=== PATIENT | male | born 1990 | race Caucasian/White ===

== ENCOUNTER 2017-09-10 09:18 | Day surgery (SDC) | payer MEDICARE, MEDICAID ==
[~2017-09-10 09:18] MED LIST: Bupivacaine 0.25%/EPINEPHrine 1:200,000 10 ML SDV INJECT ONE; Bupivacaine 25%/EPINEPHrine/PF 30 ML ONE; Dexamethasone/Tobramycin 0.1-0.3% Ophth Oint 3.5 GM Tube EYEBOTH ONE; Dexamethasone/Tobramycin 0.1-0.3% Ophth Oint 3.5 GM Tube ONE; Lactated Ringers 1,000 ML IV SCH; ceFAZolin 2 GM in Premix Bag 1 BAG IV ONE
[2017-09-10] MEDS ORDERED: Midazolam 1 MG/ML 2 ML SDV ONE (09:25)
--- NOTE | 2017-09-10 10:29 | PCM.PREANE ---
Preanesthetic Assessment - Anesthesia/Transfusion/Family Hx Anesthesia History: Prior Anesthesia Without Reaction Family History of Anesthesia Reaction: No Transfusion History: No Prior Transfusion(s) Intubation History: Unknown - Review of Systems General: No Symptoms Pulmonary: No Symptoms Cardiovascular: No Symptoms Gastrointestinal: No Symptoms Neurological: No Symptoms Other: Reports: None - Physical Assessment Height: 1.78 m Weight: 107.048 kg ASA Class: 2 Mental Status: Alert & Oriented x3 Airway Class: Mallampati = 2 Dentition: Reports: Normal Dentition Thyro-Mental Finger Breadths: 3 (overgrown mandible) Mouth Opening Finger Breadths: 2 ROM/Head Extension: Limited/Partial Lungs: Clear to Auscultation, Normal Respiratory Effort Cardiovascular: Regular Rate, Regular Rhythm - Allergies Allergies/Adverse Reactions: Allergies Allergy/AdvReac Type Severity Reaction Status Date / Time No Known Allergies Allergy Verified 09/08/17 15:07 - Blood Blood Available: No - Anesthesia Plan Pre-Op Medication Ordered: None - Acknowledgements Anesthesia Type Planned: General Anesthesia Pt an Appropriate Candidate for the Planned Anesthesia: Yes Alternatives and Risks of Anesthesia Discussed w Pt/Guardian: Yes Pt/Guardian Understands and Agrees with Anesthesia Plan: Yes PreAnesthesia Questionnaire HEENT History: Reports: Allergic Rhinitis Other HEENT History: wears glasses Gastrointestinal History: Reports: Chronic Constipation Musculoskeletal History: Reports: Fracture Other Musculoskeletal History: hx of fx left foot Neurological History: Reports: Seizure, Other (See Below) Other Neuro History: hydrocephalus, hx of [employer] shunt as child....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), last one was over 1 year ago Psychiatric History: Reports: Depression, Developmental Delay Other Psychiatric History: self abuse Endocrine/Metabolic History: Reports: Hypothyroidism, Obesity/BMI 30+ - Past Surgical History Head Surgeries/Procedures: Reports: None GI Surgical History: Reports: Colonoscopy Other Surgical History Comment: V_P shunt placement - SUBSTANCE USE Smoking Status *Q: Never Smoker Second Hand Smoke Exposure: No Days Per Week of Alcohol Use: 0 Recreational Drug Use History: No - HOME MEDS Home Medications: Home Meds DULoxetine [Cymbalta] 60 mg PO DAILY 01/07/15 [History] Docusate Sodium [Colace] 100 mg PO DAILY 01/07/15 [History] Fluticasone Propionate [Flonase] 1 - 2 sprays NASBOTH DAILY 01/07/15 [History] Levothyroxine [Synthroid] 88 mcg PO ACBREAKFAST 01/07/15 [History] Loratadine [Claritin] 10 mg PO DAILY 01/07/15 [History] Multivitamin [Multi-Vitamin Daily] 1 tab PO DAILY 01/07/15 [History] risperiDONE [Risperdal] 0.5 mg PO DAILY PRN 01/07/15 [History] Melatonin/Pyridoxine HCl (B6) [Melatonin 3 mg Tablet] 6 mg PO BEDTIME 04/19/15 [ History] lamoTRIgine [Lamictal] 600 mg PO QAM 04/19/15 [History] risperiDONE [Risperdal] 2 mg PO QAM 01/31/16 [History] risperiDONE [Risperdal] 4 mg PO BEDTIME 01/31/16 [History] Mucinex Allergy 180 mg PO Q12H 09/08/17 [History] Multivitamins [Tab-A-Rashard] 1 tab PO DAILY 09/08/17 [History] Polyethylene Glycol 3350 [MiraLAX] 1 pkt PO DAILY 09/08/17 [History] Prazosin [Minpress] 1 mg PO BEDTIME 09/08/17 [History] lamoTRIgine [Lamictal] 400 mg PO QPM 09/08/17 [History] - CURRENT (IN HOUSE) MEDS Current Meds: Current Medications Lactated Ringer's (Ringers, Lactated) 1,000 mls @ 125 mls/hr IV ASDIRECTED HINA Tramadol HCl (Ultram) 50 mg PO Q4H PRN PRN Reason: Pain Discontinued Medications Bupivacaine HCl/Epinephrine Bitart (Marcaine 0.25%/Epinephrine 1:200,000) 10 ml INJECT ONETIME ONE Stop: 09/10/17 09:01 Cefazolin Sodium/Dextrose 2 gm (/ Premix) 50 mls @ 100 mls/hr IV ONETIME ONE Stop: 09/10/17 09:29 Bupivacaine HCl/Epinephrine Bitart (Sensorc Mpf 0.25%-Epi 1:106456) Confirm Administered Dose 30 mls @ as directed .ROUTE .STK-MED ONE Stop: 09/10/17 07:34 Midazolam HCl (Versed 1 Mg/Ml) Confirm Administered Dose 2 mg .ROUTE .STK-MED ONE Stop: 09/10/17 09:26 Tobramycin/Dexamethasone (Tobradex Ophth Oint) 0.1 gm EYEBOTH ONETIME ONE Stop: 09/10/17 09:01 Tobramycin/Dexamethasone (Tobradex Ophth Oint) Confirm Administered Dose 3.5 gm .ROUTE .STK-MED ONE Stop: 09/10/17 07:34
[2017-09-10] MEDS ORDERED: Propofol 200 MG/20 ML SDV ONE ×3 (10:31→12:11)
[2017-09-10] MEDS ORDERED: Lidocaine 2% 5 ML SDV ONE (10:35)
[2017-09-10] MEDS ORDERED: fentaNYL 100 MCG/2 ML SDV ONE (10:37)
[2017-09-10] MEDS ORDERED: fentaNYL 100 MCG/2 ML SDV IVPUSH PRN (12:17)
[2017-09-10] MEDS ORDERED: Neostigmine Methylsulfate 1 MG/ML 5 ML Syringe ONE (12:27)
[2017-09-10] MEDS ORDERED: Ondansetron 4 MG Tab.DIS PO PRN (12:48)
[2017-09-10] MEDS ORDERED: Sodium Chloride 0.9% 2.5 ML Syringe FLUSH PRN (12:49)
[2017-09-10] MEDS ORDERED: Sodium Chloride 0.9% 10 ML Syringe FLUSH PRN (12:49)
--- NOTE | 2017-09-10 12:54 | PCM.OPNOTE ---
- General Post-Op/Procedure Note Date of Surgery/Procedure: 09/10/17 Operative Procedure(s): bilateral levator advacement for blepharoptosis Pre Op Diagnosis: ptosis of bilateral upper lids Post-Op Diagnosis: Same Anesthesia Technique: General ET Tube, Local Primary Surgeon: Dina Bermeo Briar Wood Sorter: Kirstie Seay Complications: None Condition: Good
[2017-09-10] MEDS: Dexamethasone/Tobramycin 0.1-0.3% Ophth Susp 2.5 ML Bottle EYEBOTH SCH ×4 (14:08→22:49)
[2017-09-10] MEDS: Dexamethasone/Tobramycin 0.1-0.3% Ophth Oint 3.5 GM Tube EYEBOTH SCH ×4 (14:29→22:49)
--- NOTE | 2017-09-10 14:34 | PCM48HPAN ---
Post Anesthesia Note - EVALUATION WITHIN 48HRS OF ANESTHETIC Vital Signs in Normal Range: Yes Patient Participated in Evaluation: Yes Respiratory Function Stable: Yes Airway Patent: Yes Cardiovascular Function Stable: Yes Hydration Status Stable: Yes Pain Control Satisfactory: Yes Nausea and Vomiting Control Satisfactory: Yes Mental Status Recovered: Yes
[2017-09-10] MEDS: Ibuprofen 400 MG Tab PO PRN (15:51)
[2017-09-10] MEDS ORDERED: risperiDONE 0.5 MG Tab PO PRN (19:13)
[2017-09-10] MEDS ORDERED: [UNRECOGNIZED DRUG - REMARK] PO SCH (19:15)
[2017-09-10] MEDS: traMADol 50 MG Tab PO PRN (20:18)
--- NOTE | 2017-09-10 20:52 | OR ---
SURGEON: TU BOOKER MD DATE OF PROCEDURE: 09/10/2017 PREOPERATIVE DIAGNOSIS: Ptosis of bilateral upper lids. POSTOPERATIVE DIAGNOSIS: Ptosis of bilateral upper lids. PROCEDURE: Bilateral levator advancement for blepharoptosis. VISITOR SERVICES SPECIALIST: None. INDICATIONS: Mr. Kearns is a 26-year-old gentleman with bilateral upper lid ptosis. 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 Risks and benefits of levator advancement versus frontalis sling were discussed and they would like to proceed with the simplest intervention possible. The patient does have a seizure disorder as well. We discussed options and I do think that levator advancement considering he was not born with poor levator function is a viable option. They said he was able to see much better prior to recent worsening. Risks were including, but not limited to, bleeding, infection, damage to underlying or overlying structures, possible need for future interventions, possible scarring. Informed consent was obtained from his caregiver and written consent was obtained from his guardian. The patient's questions were answered and they were in agreement to proceed. PROCEDURE IN DETAIL: After informed consent was obtained and placed on the chart, the patient was brought to the operating theater and laid in supine position. After adequate general anesthetic was obtained, the area was prepped and draped and a time-out was completed to confirm side and site. Attention was then paid to marking of the upper eyelids at the proposed crease approximately 1 cm up from the eyelid edge and dissection was carried through the skin and subcutaneous tissues using a 15 blade and Bovie electrocautery. The septum was reached and the levator aponeurosis was located superiorly and inferiorly the superior edge of the tarsus was located. Once adequately located, the two were reapproximated using deep 4-0 nylon sutures. The muscle was somewhat wasted on the right but more intact on the left. It was advanced slightly more on the right due to the 2 mm of difference between each eye. Once in place, the corneal protectors were removed and attention was then paid to meticulous hemostasis, reapproximated of the muscle using 4-0 Monocryl stitches and closure of the skin using a deep 5-0 Monocryl stitch and a running 6-0 Prolene for the skin. These were Steri-Stripped in place and the incisions were dressed with TobraDex ointment as there was TobraDex also placed in the eye. The patient tolerated the procedure well. All counts and needles were correct at the end of the case. FOLLOWUP INSTRUCTIONS: The patient was maintained in the hospital overnight for observation given his low seizure threshold and we will continue close observation. We will follow up sooner if any issues or concerns. HEGGTHE / ANIYAHL /[id number] MTDViktoriya
[2017-09-10] MEDS ORDERED: [UNRECOGNIZED DRUG - OTHER] PO SCH (21:00)
[2017-09-10] MEDS ORDERED: MELATONIN PO SCH (21:00)
[2017-09-10] MEDS ORDERED: risperiDONE 1 MG Tab PO SCH (21:00)
[2017-09-10] MEDS ORDERED: PYRIDOXINE HCL PO SCH (21:00)
[2017-09-10] MEDS ORDERED: Prazosin 1 MG Cap PO SCH (21:00)
[2017-09-11] MEDS: traMADol 50 MG Tab PO PRN ×2 (02:28→06:31)
[2017-09-11] MEDS: Dexamethasone/Tobramycin 0.1-0.3% Ophth Oint 3.5 GM Tube EYEBOTH SCH ×4 (02:29→13:40)
[2017-09-11] MEDS: Dexamethasone/Tobramycin 0.1-0.3% Ophth Susp 2.5 ML Bottle EYEBOTH SCH ×4 (02:29→13:39)
[2017-09-11] MEDS ORDERED: Levothyroxine 88 MCG Tab PO SCH (07:30)
[2017-09-11] MEDS ORDERED: Multivitamin Tab PO SCH ×2 (09:00)
[2017-09-11] MEDS ORDERED: lamoTRIgine 100 MG Tab PO SCH ×2 (09:00→18:00)
[2017-09-11] MEDS ORDERED: Multivitamin Tab**OWN MED PO SCH (09:00)
[2017-09-11] MEDS ORDERED: DULoxetine 60 MG Cap PO SCH (09:00)
[2017-09-11] MEDS ORDERED: Polyethylene Glycol 3350 Powder 17 GM Packet PO SCH (09:00)
[2017-09-11] MEDS ORDERED: risperiDONE 1 MG Tab PO SCH (09:00)
[2017-09-11] MEDS ORDERED: Loratadine 10 MG Tab PO SCH (09:00)
[2017-09-11] MEDS ORDERED: Fluticasone Propionate Nasal Spray 16 GM Bottle NASBOTH SCH (09:00)
[2017-09-11] MEDS ORDERED: Docusate Sodium 100 MG Cap PO SCH (09:00)
[2017-09-11] MEDS: Ibuprofen 400 MG Tab PO PRN (09:29)
[2017-09-11 12:16] VITALS: BP 119/64
--- NOTE | 2017-09-11 12:50 | PCM.PN ---
- General Info Date of Service: 09/11/17 Subjective Update: doing very well and no issues overnight. Taking home meds. No nausea and eyes feeling well. MUCH more open than before despite swelling. Excellent progress. Functional Status: Reports: Pain Controlled, Tolerating Diet, Ambulating - Review of Systems General: Reports: No Symptoms HEENT: Reports: No Symptoms, Eye Pain (initially but much improved) Pulmonary: Reports: No Symptoms Neurological: Reports: No Symptoms. Denies: Dizziness, Headache, Seizure Psychiatric: Denies: No Symptoms - Patient Data Vitals - Most Recent: Last Vital Signs Temp 96.9 F 09/11/17 12:00 Pulse 75 09/11/17 12:00 Resp 20 09/11/17 12:00 BP 119/64 09/11/17 12:00 Pulse Ox 92 L 09/11/17 12:00 Weight - Most Recent: 236 lb I&O - Last 24 Hours: Intake & Output 09/10/17 09/11/17 09/11/17 23:59 07:59 15:59 Intake Total 1399 3050 Output Total 1280 Balance 1399 1770 Med Orders - Current: Current Medications Docusate Sodium (Colace) 100 mg PO DAILY [facility] Last Admin: 09/11/17 08:22 Dose: 100 mg Duloxetine HCl (Cymbalta) 60 mg PO DAILY [facility] Last Admin: 09/11/17 08:22 Dose: 60 mg Fluticasone Propionate (Flonase) 0 gm NASBOTH DAILY [facility] Last Admin: 09/11/17 08:23 Dose: 2 spray Lactated Ringer's (Ringers, Lactated) 1,000 mls @ 125 mls/hr IV ASDIRECTED [facility] Last Admin: 09/10/17 10:36 Dose: 125 mls/hr Ibuprofen (Motrin) 400 mg PO Q4H PRN PRN Reason: Pain Last Admin: 09/11/17 09:29 Dose: 400 mg Lamotrigine (Lamotrigine) 600 mg PO QAM [facility] Last Admin: 09/11/17 08:20 Dose: 600 mg Lamotrigine (Lamotrigine) 400 mg PO QPM [facility] Levothyroxine Sodium (Synthroid) 88 mcg PO ACBREAKFAST [facility] Last Admin: 09/11/17 06:31 Dose: 88 mcg Loratadine (Claritin) 10 mg PO DAILY [facility] Last Admin: 09/11/17 08:21 Dose: 10 mg Multivitamins/Minerals/Vitamin C (Tab-A-Rashard) 1 tab PO DAILY [facility] Last Admin: 09/11/17 08:22 Dose: 1 tab Non-Formulary Medication (Melatonin/Pyridoxine Hcl (B6) [Melatonin 3 Mg Tablet] ) 6 mg PO BEDTIME [facility] Last Admin: 09/10/17 22:46 Dose: 6 mg Ondansetron HCl (Zofran Odt) 4 mg PO Q4H PRN PRN Reason: Nausea/Vomiting Polyethylene Glycol (Miralax) 17 gm PO DAILY [facility] Last Admin: 09/11/17 08:22 Dose: 17 gm Prazosin HCl (Minpress) 1 mg PO BEDTIME [facility] Last Admin: 09/10/17 22:44 Dose: 1 mg Risperidone (Risperidal) 0.5 mg PO DAILY PRN PRN Reason: Seizures Risperidone (Risperidal) 2 mg PO QAM [facility] Last Admin: 09/11/17 08:21 Dose: 2 mg Risperidone (Risperidal) 4 mg PO BEDTIME [facility] Last Admin: 09/10/17 22:44 Dose: 4 mg Sodium Chloride (Saline Flush) 10 ml FLUSH ASDIRECTED PRN PRN Reason: Keep Vein Open Sodium Chloride (Saline Flush) 2.5 ml FLUSH ASDIRECTED PRN PRN Reason: Keep Vein Open Tobramycin/Dexamethasone (Tobradex Ophth Oint) 0.1 gm EYEBOTH Q4H [facility] Last Admin: 09/11/17 09:33 Dose: 1 applic Tobramycin/Dexamethasone (Tobradex Ophth Susp) 0.5 ml EYEBOTH Q4H [facility] Last Admin: 09/11/17 09:34 Dose: 2 drop Tramadol HCl (Ultram) 50 mg PO Q4H PRN PRN Reason: Pain Last Admin: 09/11/17 06:31 Dose: 50 mg Discontinued Medications Bupivacaine HCl/Epinephrine Bitart (Marcaine 0.25%/Epinephrine 1:200,000) 10 ml INJECT ONETIME ONE Stop: 09/10/17 09:01 Last Admin: 09/10/17 16:43 Dose: Not Given Fentanyl (Sublimaze) Confirm Administered Dose 100 mcg .ROUTE .STK-MED ONE Stop: 09/10/17 10:38 Fentanyl (Sublimaze) 50 mcg IVPUSH Q5M PRN PRN Reason: Pain (severe 7-10) Stop: 09/11/17 12:17 Glycopyrrolate () Confirm Administered Dose 1 mg .ROUTE .STK-MED ONE Stop: 09/10/17 12:28 Cefazolin Sodium/Dextrose 2 gm (/ Premix) 50 mls @ 100 mls/hr IV ONETIME ONE Stop: 09/10/17 09:29 Last Admin: 09/10/17 16:43 Dose: Not Given Bupivacaine HCl/Epinephrine Bitart (Sensorc Mpf 0.25%-Epi 1:808726) Confirm Administered Dose 30 mls @ as directed .ROUTE .STK-MED ONE Stop: 09/10/17 07:34 Lidocaine (Xylocaine-Mpf 2%) Confirm Administered Dose 5 ml .ROUTE .STK-MED ONE Stop: 09/10/17 10:36 Midazolam HCl (Versed 1 Mg/Ml) Confirm Administered Dose 2 mg .ROUTE .STK-MED ONE Stop: 09/10/17 09:26 Multivitamins/Minerals/Vitamin C (Tab-A-Rashard) 1 tab PO DAILY [facility] Multivitamins/Minerals/Vitamin C (Tab-A-Rashard) 1 tab PO DAILY [facility] Neostigmine Methylsulfate (Neostigmine) Confirm Administered Dose 5 mg .ROUTE .STK-MED ONE Stop: 09/10/17 12:28 Non-Formulary Medication (Mucinex Allergy) 180 mg PO Q12H [facility] Last Admin: 09/11/17 07:16 Dose: Not Given Propofol (Diprivan 20 Ml) Confirm Administered Dose 200 mg .ROUTE .STK-MED ONE Stop: 09/10/17 10:32 Propofol (Diprivan 20 Ml) Confirm Administered Dose 200 mg .ROUTE .STK-MED ONE Stop: 09/10/17 10:35 Propofol (Diprivan 20 Ml) Confirm Administered Dose 200 mg .ROUTE .STK-MED ONE Stop: 09/10/17 12:12 Tobramycin/Dexamethasone (Tobradex Ophth Oint) 0.1 gm EYEBOTH ONETIME ONE Stop: 09/10/17 09:01 Last Admin: 09/10/17 16:44 Dose: Not Given Tobramycin/Dexamethasone (Tobradex Ophth Oint) Confirm Administered Dose 3.5 gm .ROUTE .STK-MED ONE Stop: 09/10/17 07:34 Tobramycin/Dexamethasone (Tobradex Ophth Oint) 0.1 gm EYEBOTH Q4H [facility] Last Admin: 09/10/17 17:16 Dose: Not Given Tobramycin/Dexamethasone (Tobradex Ophth Susp) 0.5 ml EYEBOTH Q4H [facility] Last Admin: 09/10/17 17:16 Dose: Not Given - Exam General: Alert, Oriented, Cooperative, No Acute Distress HEENT: Pupils Equal, Pupils Reactive Lungs: Normal Respiratory Effort Extremities: Normal Inspection Skin: Warm, Dry Wound/Incisions: Healing Well, No Drainage, Other (wounds healing well without signs of infection. Minor swelling as expected. Bruising as expected. Excellent for POD 1) Neurological: No New Focal Deficit Psy/Mental Status: Alert, Normal Affect, Normal Mood - Problem List & Annotations (1) Ptosis of both eyelids SNOMED Code(s): 58563106 Code(s): H02.403 - UNSPECIFIED PTOSIS OF BILATERAL EYELIDS Status: Chronic Priority: Medium Current Visit: Yes - Problem List Review Problem List Initiated/Reviewed/Updated: Yes - My Orders Last 24 Hours: My Active Orders 09/10/17 12:00 Patient Status [ADT] Routine 09/10/17 12:48 Ibuprofen [Motrin] 400 mg PO Q4H PRN Ondansetron [Zofran ODT] 4 mg PO Q4H PRN 09/10/17 12:49 Sodium Chloride 0.9% [Saline Flush] 10 ml FLUSH ASDIRECTED PRN Sodium Chloride 0.9% [Saline Flush] 2.5 ml FLUSH ASDIRECTED PRN 09/10/17 16:00 Saline Lock Insert [OM.PC] Routine 09/10/17 18:00 Dexamethasone/Tobramycin [Tobradex Ophth Oint] 0.1 gm EYEBOTH Q4H Dexamethasone/Tobramycin [Tobradex Ophth Susp] 0.5 ml EYEBOTH Q4H 09/10/17 19:13 risperiDONE [RisperiDAL] 0.5 mg PO DAILY PRN 09/10/17 21:00 Melatonin/Pyridoxine HCl (B6) [Melatonin 3 mg Tablet] 6 mg PO BEDTIME Prazosin [Minpress] 1 mg PO BEDTIME risperiDONE [RisperiDAL] 4 mg PO BEDTIME 09/10/17 Dinner Regular Diet [DIET] 09/11/17 07:30 Levothyroxine [Synthroid] 88 mcg PO ACBREAKFAST 09/11/17 09:00 DULoxetine [Cymbalta] 60 mg PO DAILY Docusate Sodium [Colace] 100 mg PO DAILY Fluticasone Propionate [Flonase] 0 gm NASBOTH DAILY Loratadine [Claritin] 10 mg PO DAILY Multivitamins [Tab-A-Rashard] 1 tab PO DAILY Polyethylene Glycol 3350 [MiraLAX] 17 gm PO DAILY lamoTRIgine 600 mg PO QAM risperiDONE [RisperiDAL] 2 mg PO QAM 09/11/17 18:00 lamoTRIgine 400 mg PO QPM - Plan Plan:: Plan home today. Follow up next week (Sep [address] Bermeo at 8:15am), call sooner with any issues or concerns. ULtram called to [facility] for pain if needed. Otherwise OTC medications OK. No heavy lifting and rest and relax today. OK to shower and apply ointment to incision twice daily and drops to eyes twice daily. OK to use drops up to 4x/day if the eyes are getting dry. OK to use ointment in the eye at night if eyes are very dry (be careful though as the ointment with make your vision a little blurry).
== END 2017-09-11 13:55 | disposition home or self-care (01) ==
LOC: MW.SDS 09:18 → MW.MS 13:44 → MW.SDS 09-11 13:55
PROVIDERS: ATTEND Plastic Surgery
DX: H02.403 Unspecified ptosis of bilateral eyelids (principal); J30.9 Allergic rhinitis, unspecified; K59.09 Other constipation; G40.909 Epilepsy, unspecified, not intractable, without status epilepticus; F32.9 Major depressive disorder, single episode, unspecified; E03.9 Hypothyroidism, unspecified; E66.9 Obesity, unspecified; Z68.30 Body mass index [BMI] 30.0-30.9, adult; Z98.890 Other specified postprocedural states; Z79.899 Other long term (current) drug therapy; Z79.51 Long term (current) use of inhaled steroids
CPT/HCPCS: 67904; A9270; J2250; J3010; J7120; 00103; J2704

== ENCOUNTER 2018-02-25 12:43 | Emergency (ER) | payer MEDICARE, MEDICAID ==
--- NOTE | 2018-02-25 12:53 | EDM.PDOC ---
ED HPI GENERAL MEDICAL PROBLEM - General Stated Complaint: AMB Time Seen by Provider: 02/25/18 12:52 Source of Information: Reports: Patient, EMS, Old Records History Limitations: Reports: No Limitations - History of Present Illness INITIAL COMMENTS - FREE TEXT/NARRATIVE: HISTORY AND PHYSICAL: []27-year-old male brought by EMS with a seizure/ no postictal activity. History of Present Illness: []Patient does have partial complex seizure history. Generally with this he just goes limp and is not have tonic-clonic activity. he is on medication( see list of medications) for this Patient states that sometimes this happens, he usually has an aura. He was able to sit or shortly before this occurred He denies any head injury No recent illness No cough cold fever sore throat or flu symptoms Patient is mentally challenged He was at work when this occurred Review of Systems: As per history of present illness and below otherwise all systems reviewed and negative. Past medical history: As per history of present illness and as reviewed below otherwise noncontributory. Surgical history: As per history of present illness and as reviewed below otherwise noncontributory. Social history: No reported history of drug or alcohol abuse. Family history: As per history of present illness and as reviewed below otherwise noncontributory. Physical exam: On arrival patient is alert and oriented [place] Coma Scale would be 12. Slightly drowsy. Shortness of breath no injuries noted HEENT: Atraumatic, normocehpalic, pupils reactive, negative for conjunctival pallor or scleral icterus, mucous membranes moist, throat clear, neck supple, nontender, trachea midline. Lungs: Clear to auscultation, breath sounds equal bilaterally, chest non tender. Heart: S1S2, regular, negative for clicks, rubs, or JVD. Abdomen: Soft, nondistended, nontender. Negative for masses or hepatossplenmegaly. Negative for costovertebral tenderness. Pelvis: Stable nontender. Genitourinary: Deferred. Rectal: Deferred Extremities: Atraumatic, negative for cords or calf pain. Neurovascular unremarkable. Neuro: Awake, alert, oriented. Cranial nerves II through XII unremarkable. Cerebellum unremarkable. Motor and sensory unremarkable throughout. Exam nonfocal. Diagnostics: []CBC prolactin Therapeutics: [] Impression: []Seizure activity Plan: []Discharged home Recommend that you follow-up with Dr. Barr your primary care provider to adjust her medications Definitive disposition and diagnosis as appropriate pending reevaluation and review of above. Onset: Today, Sudden - Related Data Allergies Allergy/AdvReac Type Severity Reaction Status Date / Time No Known Allergies Allergy Verified 02/25/18 13:19 Home Meds: Home Meds DULoxetine [Cymbalta] 60 mg PO DAILY 01/07/15 [History] Docusate Sodium [Colace] 100 mg PO DAILY 01/07/15 [History] Fluticasone Propionate [Flonase] 1 - 2 sprays NASBOTH DAILY 01/07/15 [History] Levothyroxine [Synthroid] 88 mcg PO ACBREAKFAST 01/07/15 [History] Loratadine [Claritin] 10 mg PO DAILY 01/07/15 [History] Multivitamin [Multi-Vitamin Daily] 1 tab PO DAILY 01/07/15 [History] risperiDONE [Risperdal] 0.5 mg PO DAILY PRN 01/07/15 [History] Melatonin/Pyridoxine HCl (B6) [Melatonin 3 mg Tablet] 6 mg PO BEDTIME 04/19/15 [ History] lamoTRIgine [Lamictal] 600 mg PO QAM 04/19/15 [History] risperiDONE [Risperdal] 2 mg PO QAM 01/31/16 [History] risperiDONE [Risperdal] 4 mg PO BEDTIME 01/31/16 [History] Mucinex Allergy 180 mg PO Q12H 09/08/17 [History] Multivitamins [Tab-A-Rashard] 1 tab PO DAILY 09/08/17 [History] Polyethylene Glycol 3350 [MiraLAX] 1 pkt PO DAILY 09/08/17 [History] Prazosin [Minpress] 1 mg PO BEDTIME 09/08/17 [History] lamoTRIgine [Lamictal] 400 mg PO QPM 09/08/17 [History] Dexamethasone/Tobramycin [Tobradex Ophth Oint] 0.1 gm EYEBOTH Q4H tube [Rx] Dexamethasone/Tobramycin [Tobradex Ophth Susp] 0.5 ml EYEBOTH Q4H bottle [Rx] traMADol [Ultram] 50 mg PO Q4H PRN #40 tablet 09/11/17 [Rx] Past Medical History HEENT History: Reports: Allergic Rhinitis Other HEENT History: left eye lid is saggy since , causing a small amount of vision loss Gastrointestinal History: Reports: Chronic Constipation Musculoskeletal History: Reports: Fracture Other Musculoskeletal History: hx of fx left foot Neurological History: Reports: Seizure Other Neuro History: hydrocephalus, hx of [employer] shunt as child....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 ED EXAM, GENERAL - Physical Exam Exam: See Below (CT dictation) Course - Vital Signs Last Recorded V/S: Last Vital Signs Temp 36.6 C 02/25/18 13:00 Pulse 97 02/25/18 13:00 Resp 20 02/25/18 13:00 BP 120/78 02/25/18 13:00 Pulse Ox 93 L 02/25/18 13:00 - Orders/Labs/Meds Orders: Active Orders 24 hr Category Date Time Status EKG Documentation Completion [RC] STAT Care 02/25/18 12:58 Active COMPREHENSIVE METABOLIC PN,CMP [CHEM] Stat Lab 02/25/18 13:02 Received PROLACTIN [CHEM] Stat Lab 02/25/18 13:02 Received Labs: Laboratory Tests 02/25/18 Range/Units 13:02 WBC 7.45 (4.0-11.0) K/uL RBC 5.27 (4.50-5.90) M/uL Hgb 16.2 (13.0-17.0) g/dL Hct 45.2 (38.0-50.0) % MCV 85.8 (80.0-98.0) fL MCH 30.7 (27.0-32.0) pg MCHC 35.8 (31.0-37.0) g/dL RDW Std Deviation 42.8 (28.0-62.0) fl RDW Coeff of [place] 14 (11.0-15.0) % Plt Count 139 L (150-400) K/uL MPV 8.90 (7.40-12.00) fL Neut % (Auto) 63.7 (48.0-80.0) % Lymph % (Auto) 27.9 (16.0-40.0) % [place] % (Auto) 6.4 (0.0-15.0) % Eos % (Auto) 2.0 (0.0-7.0) % Baso % (Auto) 0.0 (0.0-1.5) % Neut # (Auto) 4.7 (1.4-5.7) K/uL Lymph # (Auto) 2.1 (0.6-2.4) K/uL [place] # (Auto) 0.5 (0.0-0.8) K/uL Eos # (Auto) 0.2 (0.0-0.7) K/uL Baso # (Auto) 0.0 (0.0-0.1) K/uL Departure - Departure Time of Disposition: 13:48 Disposition: Home, Self-Care 01 Condition: Good Clinical Impression: Complex partial epileptic seizure Qualifiers: Epilepsy type: partial symptomatic Intractability: not intractable Status epilepticus: without status epilepticus Qualified Code(s): G40.209 - Localization-related (focal) (partial) symptomatic epilepsy and epileptic syndromes with complex partial seizures, not intractable, without status epilepticus - Discharge Information Instructions: Epilepsy, [id number] Additional Instructions: The following information is given to patients seen in the emergency department who are being discharged to home. This information is to outline your options for follow-up care. We provide all patients seen in our emergency department with a follow-up referral. The need for follow-up, as well as the timing and circumstances, are variable depending upon the specifics of your emergency department visit. If you don't have a primary care physician on staff, we will provide you with a referral. We always advise you to contact your personal physician following an emergency department visit to inform them of the circumstance of the visit and for follow-up with them and/or the need for any referrals to a consulting specialist. The emergency department will also refer you to a specialist when appropriate. This referral assures that you have the opportunity for followup care with a specialist. All of these measure are taken in an effort to provide you with optimal care, which includes your followup. Under all circumstances we always encourage you to contact your private physician who remains a resource for coordinating your care. When calling for followup care, please make the office aware that this follow-up is from your recent emergency room visit. If for any reason you are refused follow-up, please contact the [facility] emergency department at and asked to speak to the emergency department charge nurse. You had a partial complex seizure which is not unusual for you No injuries were noted on examination Follow-up with Dr. barr your PCP for consideration of medication adjustment The emergency department as necessary - My Orders Last 24 Hours: My Active Orders 02/25/18 12:58 EKG Documentation Completion [RC] STAT 02/25/18 13:02 COMPREHENSIVE METABOLIC PN,CMP [CHEM] Stat PROLACTIN [CHEM] Stat - Assessment/Plan Last 24 Hours: My Active Orders 02/25/18 12:58 EKG Documentation Completion [RC] STAT 02/25/18 13:02 COMPREHENSIVE METABOLIC PN,CMP [CHEM] Stat PROLACTIN [CHEM] Stat
[2018-02-25 13:48] LABS: CHLORIDE,CL 106 mmol/L (98-107); SODIUM,NA 143 mmol/L (136-148)
[2018-02-25 14:15] VITALS: BP 115/67
== END 2018-02-25 14:13 | disposition home or self-care (01) ==
LOC: MW.ED 12:43
DX: G40.209 Localization-related (focal) (partial) symptomatic epilepsy and epileptic syndromes with complex partial seizures, not intractable, without status epilepticus (principal); E03.9 Hypothyroidism, unspecified; Z79.899 Other long term (current) drug therapy
CPT/HCPCS: 36415; 80053; 84146; 85025; 93005; 99283; 99284-25

== ENCOUNTER 2019-06-22 18:34 | Emergency (ER) | payer MEDICARE, MEDICAID ==
[2019-06-22 19:35] VITALS: BP 131/81; PULSE 65
--- NOTE | 2019-06-22 20:41 | EDM.PDOCBH ---
ED HPI GENERAL MEDICAL PROBLEM - General Chief Complaint: Behavioral/Psych Stated Complaint: MENTAL HEALTH Time Seen by Provider: 06/22/19 20:38 Source of Information: Reports: Patient History Limitations: Reports: No Limitations - History of Present Illness INITIAL COMMENTS - FREE TEXT/NARRATIVE: HISTORY AND PHYSICAL: History of present illness: Patient is a 28-year-old male presents to the ED with complaint of suicidal ideation. Patient is a resident of [facility] and told staff today that he wants to kill himself with a knife from the kitchen. Patient states he has been having these thoughts since yesterday. He denies any specific trigger. He has a history of depression and suicidal ideation and does see a counselor once a week. He has been inpatient at [facility] last year for suicidality. Review of systems: As per history of present illness and below otherwise all systems reviewed and negative. Past medical history: As per history of present illness and as reviewed below otherwise noncontributory. Surgical history: As per history of present illness and as reviewed below otherwise noncontributory. Social history: No reported history of drug or alcohol abuse. Family history: As per history of present illness and as reviewed below otherwise noncontributory. Physical exam: General: Patient sitting comfortably in no acute distress and nontoxic appearing HEENT: Atraumatic, normocephalic, pupils reactive, negative for conjunctival pallor or scleral icterus, mucous membranes moist, throat clear, neck supple, nontender, trachea midline. No meningeal signs. Lungs: Clear to auscultation, breath sounds equal bilaterally, chest nontender. Heart: S1S2, regular, negative for clicks, rubs, or overt murmur. Abdomen: Soft, nondistended, nontender. Negative for masses or hepatosplenomegaly. Negative for costovertebral tenderness. No rigidity, rebound , guarding. Pelvis: Stable nontender. Genitourinary: Deferred. Rectal: Deferred. Extremities: Atraumatic, negative for cords or calf pain. Neurovascular unremarkable. Neuro: Awake, alert, oriented. Cranial nerves II through XII unremarkable. Cerebellum unremarkable. Motor and sensory unremarkable throughout. Exam nonfocal. Notes: patient placed on hold Diagnostics: Mental health work up Therapeutics: [] Prescriptions: Impression: Suicidal ideation with plan Plan: Patient accepted for transfer to [facility] by Dr. Beauchamp, psych. Definitive disposition and diagnosis as appropriate pending reevaluation and review of above. - Related Data Allergies Allergy/AdvReac Type Severity Reaction Status Date / Time No Known Allergies Allergy Verified 06/22/19 19:40 Home Meds: Home Meds DULoxetine [Cymbalta] 60 mg PO DAILY 01/07/15 [History] Docusate Sodium [Colace] 100 mg PO DAILY 01/07/15 [History] Fluticasone Propionate [Flonase] 1 - 2 sprays NASBOTH DAILY 01/07/15 [History] Levothyroxine [Synthroid] 88 mcg PO ACBREAKFAST 01/07/15 [History] Loratadine [Claritin] 10 mg PO DAILY 01/07/15 [History] risperiDONE [Risperdal] 0.5 mg PO PRN 01/07/15 [History] Melatonin/Pyridoxine HCl (B6) [Melatonin 3 mg Tablet] 6 mg PO BEDTIME 04/19/15 [ History] lamoTRIgine [Lamictal] 600 mg PO QAM 04/19/15 [History] risperiDONE [Risperdal] 2 mg PO QAM 01/31/16 [History] risperiDONE [Risperdal] 4 mg PO BEDTIME 01/31/16 [History] Multivitamins [Tab-A-Rashard] 1 tab PO DAILY 09/08/17 [History] Prazosin [Minpress] 1 mg PO BEDTIME 09/08/17 [History] lamoTRIgine [Lamictal] 400 mg PO QPM 09/08/17 [History] Oxymetazoline HCl [Afrin] 1 spray NASBOTH . 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), last one was over 1 year ago Psychiatric History: Reports: Suicidal Ideation, Other (See Below) Other Psychiatric History: self abuse Endocrine/Metabolic History: Reports: Hypothyroidism, Obesity/BMI 30+ - Infectious Disease History Infectious Disease History: Reports: None - Past Surgical History Head Surgeries/Procedures: Reports: None GI Surgical History: Reports: Colonoscopy Social & Family History - Family History Family Medical History: Noncontributory - Tobacco Use Smoking Status *Q: Never Smoker Second Hand Smoke Exposure: No - Caffeine Use Caffeine Use: Reports: None - Recreational Drug Use Recreational Drug Use: No ED ROS GENERAL - Review of Systems Review Of Systems: ROS reveals no pertinent complaints other than HPI. ED EXAM, BEHAVIORAL HEALTH - Physical Exam Exam: See Below (see dictation) COURSE, BEHAVIORAL HEALTH COMP - Course Vital Signs: Last Vital Signs Temp 97.6 F 06/22/19 19:34 Pulse 65 06/22/19 19:34 Resp 20 06/22/19 19:34 BP 131/81 06/22/19 19:34 Pulse Ox 98 06/22/19 19:34 Orders, Labs, Meds: Active Orders 24 hr Category Date Time Status EKG Documentation Completion [RC] STAT Care 06/22/19 20:14 Ordered ACETAMINOPHEN [CHEM] Stat Lab 06/22/19 20:14 Ordered COMPREHENSIVE METABOLIC PN,CMP [CHEM] Stat Lab 06/22/19 20:14 Ordered ETHANOL BLOOD MEDICAL [CHEM] Stat Lab 06/22/19 20:14 Ordered MAGNESIUM [CHEM] Stat Lab 06/22/19 20:14 Ordered SALICYLATE [CHEM] Stat Lab 06/22/19 20:14 Ordered TSH [CHEM] Stat Lab 06/22/19 20:14 Ordered Laboratory Tests 06/22/19 06/22/19 06/22/19 Range/Units 20:14 20:14 20:28 WBC 7.71 (4.0-11.0) K/uL RBC 5.29 (4.50-5.90) M/uL Hgb 16.2 (13.0-17.0) g/dL Hct 47.0 (38.0-50.0) % MCV 88.8 (80.0-98.0) fL MCH 30.6 (27.0-32.0) pg MCHC 34.5 (31.0-37.0) g/dL RDW Std Deviation 45.6 (28.0-62.0) fl RDW Coeff of [place]ia 14 (11.0-15.0) % Plt Count 150 (150-400) K/uL MPV 8.80 (7.40-12.00) fL Neut % (Auto) 58.5 (48.0-80.0) % Lymph % (Auto) 31.4 (16.0-40.0) % [place] % (Auto) 8.0 (0.0-15.0) % Eos % (Auto) 2.1 (0.0-7.0) % Baso % (Auto) 0.0 (0.0-1.5) % Neut # (Auto) 4.5 (1.4-5.7) K/uL Lymph # (Auto) 2.4 (0.6-2.4) K/uL [place] # (Auto) 0.6 (0.0-0.8) K/uL Eos # (Auto) 0.2 (0.0-0.7) K/uL Baso # (Auto) 0.0 (0.0-0.1) K/uL Nucleated RBC % 0.0 /100WBC Nucleated RBCs # 0 K/uL Urine Color YELLOW Urine Appearance CLEAR Urine pH 6.5 (5.0-8.0) Ur Specific [place] 1.025 (1.001-1.035) Urine Protein NEGATIVE (NEGATIVE) mg/dL Urine Glucose (UA) NEGATIVE (NEGATIVE) mg/dL Urine Ketones NEGATIVE (NEGATIVE) mg/dL Urine Occult Blood NEGATIVE (NEGATIVE) Urine Nitrite NEGATIVE (NEGATIVE) Urine Bilirubin NEGATIVE (NEGATIVE) Urine Urobilinogen 0.2 (<2.0) EU/dL Ur Leukocyte Esterase NEGATIVE (NEGATIVE) Urine RBC NONE SEEN (0-2/HPF) Urine WBC 0-1 (0-5/HPF) Ur Epithelial Cells RARE (NONE-FEW) Urine Bacteria OCCASIONAL (NEGATIVE) Urine Opiates Screen NEGATIVE (NEGATIVE) Ur Oxycodone Screen NEGATIVE (NEGATIVE) Urine Methadone Screen NEGATIVE (NEGATIVE) Ur Barbiturates Screen NEGATIVE (NEGATIVE) Ur Phencyclidine Scrn NEGATIVE (NEGATIVE) Ur Amphetamine Screen NEGATIVE (NEGATIVE) U Methamphetamines Scrn NEGATIVE (NEGATIVE) U Benzodiazepines Scrn NEGATIVE (NEGATIVE) U Cocaine Metab Screen NEGATIVE (NEGATIVE) U Marijuana (THC) Screen NEGATIVE (NEGATIVE) Departure - Departure Time of Disposition: 20:46 Disposition: DC/Tfer to Psych Hosp/Unit 65 Condition: Good Clinical Impression: Suicidal ideation - Discharge Information Referrals: PCP,Unknown [Primary Care Provider] - Forms: ED Department Discharge - My Orders Last 24 Hours: My Active Orders 06/22/19 20:14 EKG Documentation Completion [RC] STAT ACETAMINOPHEN [CHEM] Stat COMPREHENSIVE METABOLIC PN,CMP [CHEM] Stat ETHANOL BLOOD MEDICAL [CHEM] Stat MAGNESIUM [CHEM] Stat SALICYLATE [CHEM] Stat TSH [CHEM] Stat - Assessment/Plan Last 24 Hours: My Active Orders 06/22/19 20:14 EKG Documentation Completion [RC] STAT ACETAMINOPHEN [CHEM] Stat COMPREHENSIVE METABOLIC PN,CMP [CHEM] Stat ETHANOL BLOOD MEDICAL [CHEM] Stat MAGNESIUM [CHEM] Stat SALICYLATE [CHEM] Stat TSH [CHEM] Stat
[2019-06-22 21:02] LABS: BLOOD UREA NITROGEN,BUN 15 mg/dL (7.0-18.0); CARBON DIOXIDE,CO2 29.6 mmol/L (21.0-32.0); CHLORIDE,CL 104 mmol/L (98-107); GLUCOSE RANDOM 91 mg/dL (74-106); POTASSIUM,K 3.8 mmol/L (3.5-5.1); SODIUM,NA 142 mmol/L (136-148)
[2019-06-22 21:20] LABS: ACETAMINOPHEN <2.0 ug/mL
== END 2019-06-22 22:53 ==
LOC: MW.ED 18:34
DX: R45.851 Suicidal ideations (principal); F32.9 Major depressive disorder, single episode, unspecified; E03.9 Hypothyroidism, unspecified; G40.409 Other generalized epilepsy and epileptic syndromes, not intractable, without status epilepticus; E66.9 Obesity, unspecified; Z68.35 Body mass index [BMI] 35.0-35.9, adult; Z79.890 Hormone replacement therapy; Z79.899 Other long term (current) drug therapy
CPT/HCPCS: 36415; 80053; 80305; 81001; 83735; 84443; 85025; 93005; 99285; G0480; 99282

== ENCOUNTER 2019-07-20 13:35 | Emergency (ER) | payer MEDICARE, MEDICAID ==
[2019-07-20 13:46] VITALS: BP 166/76; PULSE 95
--- NOTE | 2019-07-20 13:53 | EDM.PDOCBH ---
ED HPI GENERAL MEDICAL PROBLEM - General Chief Complaint: Behavioral/Psych Stated Complaint: PSYCH EVAL Time Seen by Provider: 07/20/19 13:37 Source of Information: Reports: Patient History Limitations: Reports: No Limitations - History of Present Illness INITIAL COMMENTS - FREE TEXT/NARRATIVE: HISTORY AND PHYSICAL: History of present illness: Patient is a 28-year-old male who is brought to the emergency room by law enforcement with suicidal ideation with plan. Enforcement states they were called to a scene as a bystander saw the patient attempting to jump off of a bridge, law enforcement was able to intervene. Patient has history of suicidal ideation and was recently transferred to [facility] in [place] for SI. He states he has felt well and not had any suicidal ideations since his discharge from [facility] and will not specify what triggered him to want to "jump off the bridge ". He denies any alcohol or drug consumption. Denies any medication ingestion. Patient does have a history of developmental delays, seizure disorder, and self harm. Review of systems: As per history of present illness and below otherwise all systems reviewed and negative. Past medical history: As per history of present illness and as reviewed below otherwise noncontributory. Surgical history: As per history of present illness and as reviewed below otherwise noncontributory. Social history: See social history for further information Family history: As per history of present illness and as reviewed below otherwise noncontributory. Physical exam: General: well developed and well-nourished 28-year-old male. Alert and oriented. Nontoxic appearing and in no acute distress. HEENT: Atraumatic, normocephalic, pupils equal and reactive bilaterally, negative for conjunctival pallor or scleral icterus, mucous membranes moist, TMs normal bilaterally, throat clear, neck supple, nontender, trachea midline. No drooling or trismus noted. No meningeal signs. No hot potato voice noted. Lungs: Clear to auscultation, breath sounds equal bilaterally, chest nontender. Heart: S1S2, regular rate and rhythm without overt murmur Abdomen: Soft, nondistended, nontender. Negative for masses or hepatosplenomegaly. Negative for costovertebral tenderness. Pelvis: Stable nontender. Skin: Intact, warm, dry. No lesions or rashes noted. Extremities: Atraumatic, moves all extremities per self without difficulty or deficits, negative for cords or calf pain. Neurovascular unremarkable. Neuro: Awake, alert, oriented. Cranial nerves II through XII unremarkable. Cerebellum unremarkable. Motor and sensory unremarkable throughout. Exam nonfocal. Notes: Lab work is unremarkable. VSS. Patient offers no current complaints ot concerns at this time. [facility] is at capacity, unable to accept patient. [facility] in [place] was consulted; Dr Corona ([facility]) is agreeable to accepting this patient for further care. Emergency committal was placed. Patient will go via ground EMS. Will continue to monitor Diagnostics: CBC, CMP, TSH, UA, Acetaminophen, Salicylate, DRGU Therapeutics: None Prescription: None Impression: Suicidal ideation with intent Plan: Transfer to [facility] via ground EMS Definitive disposition and diagnosis as appropriate pending reevaluation and review of above. Onset: Today (Acute on chronic) - Related Data Allergies Allergy/AdvReac Type Severity Reaction Status Date / Time No Known Allergies Allergy Verified 07/20/19 13:46 Home Meds: Home Meds DULoxetine [Cymbalta] 60 mg PO DAILY 01/07/15 [History] Docusate Sodium [Colace] 100 mg PO DAILY 01/07/15 [History] Fluticasone Propionate [Flonase] 1 - 2 sprays NASBOTH DAILY 01/07/15 [History] Levothyroxine [Synthroid] 88 mcg PO ACBREAKFAST 01/07/15 [History] Loratadine [Claritin] 10 mg PO DAILY 01/07/15 [History] risperiDONE [Risperdal] 0.5 mg PO PRN 01/07/15 [History] Melatonin/Pyridoxine HCl (B6) [Melatonin 3 mg Tablet] 6 mg PO BEDTIME 04/19/15 [ History] lamoTRIgine [Lamictal] 600 mg PO QAM 04/19/15 [History] risperiDONE [Risperdal] 2 mg PO QAM 01/31/16 [History] risperiDONE [Risperdal] 4 mg PO BEDTIME 01/31/16 [History] Multivitamins [Tab-A-Rashard] 1 tab PO DAILY 09/08/17 [History] Prazosin [Minpress] 1 mg PO BEDTIME 09/08/17 [History] lamoTRIgine [Lamictal] 400 mg PO QPM 09/08/17 [History] Oxymetazoline HCl [Afrin] 1 spray NASBOTH . 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....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), last one was over 1 year ago Psychiatric History: Reports: Suicidal Ideation, Other (See Below) Other Psychiatric History: self abuse Endocrine/Metabolic History: Reports: Hypothyroidism, Obesity/BMI 30+ Hematologic History: Reports: None Immunologic History: Reports: None Oncologic (Cancer) History: Reports: None Dermatologic History: Reports: None - Infectious Disease History Infectious Disease History: Reports: None - Past Surgical History Head Surgeries/Procedures: Reports: None HEENT Surgical History: Reports: None Cardiovascular Surgical History: Reports: None Respiratory Surgical History: Reports: None GI Surgical History: Reports: Colonoscopy Male Surgical History: Reports: None Endocrine Surgical History: Reports: None Neurological Surgical History: Reports: None Musculoskeletal Surgical History: Reports: None Oncologic Surgical History: Reports: None Dermatological Surgical History: Reports: None Social & Family History - Family History Family Medical History: Noncontributory - Tobacco Use Smoking Status *Q: Never Smoker Second Hand Smoke Exposure: No - Caffeine Use Caffeine Use: Reports: None - Recreational Drug Use Recreational Drug Use: No ED ROS GENERAL - Review of Systems Review Of Systems: Comprehensive ROS is negative, except as noted in HPI. ED EXAM, BEHAVIORAL HEALTH - Physical Exam Exam: See Below (See dictation) COURSE, BEHAVIORAL HEALTH COMP - Course Vital Signs: Last Vital Signs Temp 97.5 F 07/20/19 13:44 Pulse 95 07/20/19 13:44 Resp 18 07/20/19 13:44 BP 166/76 H 07/20/19 13:44 Pulse Ox 95 07/20/19 13:44 Orders, Labs, Meds: Active Orders 24 hr Category Date Time Status EKG 12 Lead [EKG Documentation Completion] [RC] STAT Care 07/20/19 14:34 Active Laboratory Tests 07/20/19 07/20/19 07/20/19 Range/Units 13:50 14:01 14:01 WBC 8.08 (4.0-11.0) K/uL RBC 5.37 (4.50-5.90) M/uL Hgb 16.3 (13.0-17.0) g/dL Hct 46.8 (38.0-50.0) % MCV 87.2 (80.0-98.0) fL MCH 30.4 (27.0-32.0) pg MCHC 34.8 (31.0-37.0) g/dL RDW Std Deviation 43.8 (28.0-62.0) fl RDW Coeff of Saskia 14 (11.0-15.0) % Plt Count 145 L (150-400) K/uL MPV 8.60 (7.40-12.00) fL Neut % (Auto) 62.0 (48.0-80.0) % Lymph % (Auto) 26.7 (16.0-40.0) % Clare % (Auto) 8.8 (0.0-15.0) % Eos % (Auto) 2.5 (0.0-7.0) % Baso % (Auto) 0.0 (0.0-1.5) % Neut # (Auto) 5.0 (1.4-5.7) K/uL Lymph # (Auto) 2.2 (0.6-2.4) K/uL Clare # (Auto) 0.7 (0.0-0.8) K/uL Eos # (Auto) 0.2 (0.0-0.7) K/uL Baso # (Auto) 0.0 (0.0-0.1) K/uL Nucleated RBC % 0.0 /100WBC Nucleated RBCs # 0 K/uL Sodium 142 (136-148) mmol/L Potassium 3.7 (3.5-5.1) mmol/L Chloride 104 (98-107) mmol/L Carbon Dioxide 27.6 (21.0-32.0) mmol/L BUN 16 (7.0-18.0) mg/dL Creatinine 1.4 H (0.8-1.3) mg/dL Est Cr Clr Drug Dosing 77.36 mL/min Estimated GFR (MDRD) > 60.0 ml/min Glucose 96 (74-106) mg/dL Calcium 8.8 (8.5-10.1) mg/dL Total Bilirubin 0.5 (0.2-1.0) mg/dL AST 26 (15-37) IU/L ALT 32 (14-63) IU/L Alkaline Phosphatase 93 (46-116) U/L Total Protein 7.2 (6.4-8.2) g/dL Albumin 4.3 (3.4-5.0) g/dL Globulin 2.9 (2.6-4.0) g/dL Albumin/Globulin Ratio 1.5 (0.9-1.6) TSH 3rd Generation 2.46 (0.36-3.74) uIU/mL Salicylates 0.8 (0-20) mg/dL Urine Opiates Screen NEGATIVE (NEGATIVE) Ur Oxycodone Screen NEGATIVE (NEGATIVE) Urine Methadone Screen NEGATIVE (NEGATIVE) Acetaminophen <2.0 ug/mL Ur Barbiturates Screen NEGATIVE (NEGATIVE) Ur Phencyclidine Scrn NEGATIVE (NEGATIVE) Ur Amphetamine Screen NEGATIVE (NEGATIVE) U Methamphetamines Scrn NEGATIVE (NEGATIVE) U Benzodiazepines Scrn NEGATIVE (NEGATIVE) U Cocaine Metab Screen NEGATIVE (NEGATIVE) U Marijuana (THC) Screen NEGATIVE (NEGATIVE) Ethyl Alcohol 4 mg/dL Departure - Departure Time of Disposition: 14:53 Disposition: DC/Tfer to Psych Hosp/Unit [facility] Clinical Impression: Suicidal ideation - Discharge Information Referrals: PCP,Carlosobtain [Primary Care Provider] - Forms: ED Department Discharge - My Orders Last 24 Hours: My Active Orders 07/20/19 14:34 EKG 12 Lead [EKG Documentation Completion] [RC] STAT - Assessment/Plan Last 24 Hours: My Active Orders 07/20/19 14:34 EKG 12 Lead [EKG Documentation Completion] [RC] STAT
[2019-07-20 14:47] LABS: ACETAMINOPHEN <2.0 ug/mL; BLOOD UREA NITROGEN,BUN 16 mg/dL (7.0-18.0); CARBON DIOXIDE,CO2 27.6 mmol/L (21.0-32.0); CHLORIDE,CL 104 mmol/L (98-107); GLUCOSE RANDOM 96 mg/dL (74-106); POTASSIUM,K 3.7 mmol/L (3.5-5.1); SODIUM,NA 142 mmol/L (136-148)
== END 2019-07-20 16:40 ==
LOC: MW.ED 13:35
DX: R45.851 Suicidal ideations (principal); E03.9 Hypothyroidism, unspecified; Z79.890 Hormone replacement therapy; E66.9 Obesity, unspecified; Z68.36 Body mass index [BMI] 36.0-36.9, adult
CPT/HCPCS: 36415; 80053; 80305; 84443; 85025; 93005; 99285; G0480; 99284

== ENCOUNTER 2019-08-22 20:24 | Emergency (ER) | payer MEDICARE, MEDICAID ==
--- NOTE | 2019-08-22 20:36 | EDM.PDOCBH ---
ED HPI GENERAL MEDICAL PROBLEM - General Chief Complaint: Behavioral/Psych Stated Complaint: suicide attempt Time Seen by Provider: 08/22/19 20:26 Source of Information: Reports: Patient, RN Notes Reviewed History Limitations: Reports: No Limitations - History of Present Illness INITIAL COMMENTS - FREE TEXT/NARRATIVE: 28-year-old gentleman who presents to the emergency room with a chief complaint of being depressed and trying to kill himself. Patient states he took a washing machine sprayer about a capful. States he now has a sour stomach no other symptoms. Patient denies shortness of breath, chest pain, severe abdominal pain Onset: Today Duration: Hour(s): Location: Reports: Head, Face Quality: Reports: Ache, Stabbing Severity: Mild Improves with: Reports: None Worsens with: Reports: None Context: Reports: Activity Associated Symptoms: Reports: No Other Symptoms - Related Data Allergies Allergy/AdvReac Type Severity Reaction Status Date / Time No Known Allergies Allergy Verified 08/22/19 20:32 Home Meds: Home Meds DULoxetine [Cymbalta] 60 mg PO DAILY 01/07/15 [History] Docusate Sodium [Colace] 100 mg PO DAILY 01/07/15 [History] Fluticasone Propionate [Flonase] 1 - 2 sprays NASBOTH DAILY 01/07/15 [History] Levothyroxine [Synthroid] 88 mcg PO ACBREAKFAST 01/07/15 [History] Loratadine [Claritin] 10 mg PO DAILY 01/07/15 [History] risperiDONE [Risperdal] 0.5 mg PO DAILY PRN 01/07/15 [History] lamoTRIgine [Lamictal] 600 mg PO QAM 04/19/15 [History] risperiDONE [Risperdal] 2 mg PO QAM 01/31/16 [History] risperiDONE [Risperdal] 4 mg PO BEDTIME 01/31/16 [History] Multivitamins [Tab-A-Rashard] 1 tab PO DAILY 09/08/17 [History] Prazosin [Minpress] 1 mg PO BEDTIME 09/08/17 [History] lamoTRIgine [Lamictal] 400 mg PO QPM 09/08/17 [History] DULoxetine HCl [Cymbalta] 30 mg PO DAILY 07/20/19 [History] Past Medical History HEENT History: Reports: Allergic Rhinitis Other HEENT History: left eye lid is saggy since , causing a small amount of vision loss Cardiovascular History: Reports: None Respiratory History: Reports: None Gastrointestinal History: Reports: Chronic Constipation Genitourinary History: Reports: None Musculoskeletal History: Reports: Fracture Other Musculoskeletal History: hx of fx left foot Neurological History: Reports: Seizure Other Neuro History: hydrocephalus, 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....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), last one was over 1 year ago Psychiatric History: Reports: Suicidal Ideation, Other (See Below) Other Psychiatric History: self abuse Endocrine/Metabolic History: Reports: Hypothyroidism, Obesity/BMI 30+ Hematologic History: Reports: None Immunologic History: Reports: None Oncologic (Cancer) History: Reports: None Dermatologic History: Reports: None - Infectious Disease History Infectious Disease History: Reports: None - Past Surgical History Head Surgeries/Procedures: Reports: None HEENT Surgical History: Reports: None Cardiovascular Surgical History: Reports: None Respiratory Surgical History: Reports: None GI Surgical History: Reports: Colonoscopy Male Surgical History: Reports: None Endocrine Surgical History: Reports: None Neurological Surgical History: Reports: None Musculoskeletal Surgical History: Reports: None Oncologic Surgical History: Reports: None Dermatological Surgical History: Reports: None Social & Family History - Family History Family Medical History: Noncontributory - Caffeine Use Caffeine Use: Reports: None ED ROS GENERAL - Review of Systems Review Of Systems: See Below Constitutional: Reports: No Symptoms HEENT: Reports: No Symptoms Respiratory: Reports: No Symptoms Cardiovascular: Reports: No Symptoms Endocrine: Reports: No Symptoms GI/Abdominal: Reports: No Symptoms : Reports: No Symptoms Musculoskeletal: Reports: No Symptoms Skin: Reports: No Symptoms Neurological: Reports: Pre-Existing Deficit Psychiatric: Reports: Depression, Suicidal Ideation Hematologic/Lymphatic: Reports: No Symptoms Immunologic: Reports: No Symptoms ED EXAM, BEHAVIORAL HEALTH - Physical Exam Exam: See Below Exam Limited By: No Limitations General Appearance: Alert, WD/WN, No Apparent Distress Eye Exam: Bilateral Eye: Normal Fundi, Normal Inspection Ears: Normal External Exam, Normal Canal Nose: Normal Inspection, Normal Mucosa, Nasal Flaring Throat/Mouth: Normal Lips, Normal Teeth, Normal Oropharynx Head: Atraumatic, Normocephalic Neck: Normal Inspection, Supple, Non-Tender Respiratory/Chest: No Respiratory Distress, Normal Breath Sounds Cardiovascular: Normal Peripheral Pulses, Regular Rate, Rhythm, No Edema GI/Abdominal: Normal Bowel Sounds, Soft, Non-Tender (Male) Exam: No Hernia, Normal Inspection, Normal Prostate Back Exam: Normal Inspection, Full Range of Motion Extremities: Normal Inspection, Normal Range of Motion, No Pedal Edema, Normal Capillary Refill Neurological: Alert, Normal Mood/Affect, CN II-XII Intact, Normal Cognition, Normal Gait, Normal Reflexes, No Motor/Sensory Deficits Psychiatric: Alert, Normal Affect, Normal Cognition, Normal Mood, Depressed Mood , Suicidal Plan. No: Oriented Skin Exam: Warm, Dry, Intact, Normal color COURSE, BEHAVIORAL HEALTH COMP - Course Vital Signs: Last Vital Signs Temp 97.2 F 08/23/19 04:11 Pulse 62 08/23/19 04:11 Resp 16 08/23/19 04:11 BP 126/93 H 08/23/19 04:11 Pulse Ox 96 08/23/19 04:11 Orders, Labs, Meds: Active Orders 24 hr Category Date Time Status EKG Documentation Completion [RC] STAT Care 08/22/19 21:12 Active Laboratory Tests 08/22/19 08/22/19 08/22/19 Range/Units 00:00 20:28 20:28 Sodium (136-148) mmol/L Potassium (3.5-5.1) mmol/L Chloride (98-107) mmol/L Carbon Dioxide (21.0-32.0) mmol/L BUN (7.0-18.0) mg/dL Creatinine (0.8-1.3) mg/dL Est Cr Clr Drug Dosing Estimated GFR (MDRD) ml/min Glucose (74-106) mg/dL Calcium (8.5-10.1) mg/dL Magnesium (1.8-2.4) mg/dL Total Bilirubin (0.2-1.0) mg/dL AST (15-37) IU/L ALT (14-63) IU/L Alkaline Phosphatase (46-116) U/L Total Protein (6.4-8.2) g/dL Albumin (3.4-5.0) g/dL Globulin (2.6-4.0) g/dL Albumin/Globulin Ratio (0.9-1.6) TSH 3rd Generation (0.36-3.74) uIU/mL Urine Color YELLOW Urine Appearance CLEAR Urine pH 6.5 (5.0-8.0) Ur Specific [place] 1.020 (1.001-1.035) Urine Protein NEGATIVE (NEGATIVE) mg/dL Urine Glucose (UA) NEGATIVE (NEGATIVE) mg/dL Urine Ketones NEGATIVE (NEGATIVE) mg/dL Urine Occult Blood NEGATIVE (NEGATIVE) Urine Nitrite NEGATIVE (NEGATIVE) Urine Bilirubin NEGATIVE (NEGATIVE) Urine Urobilinogen 0.2 (<2.0) EU/dL Ur Leukocyte Esterase NEGATIVE (NEGATIVE) Salicylates (0-20) mg/dL Urine Opiates Screen NEGATIVE (NEGATIVE) Ur Oxycodone Screen NEGATIVE (NEGATIVE) Urine Methadone Screen NEGATIVE (NEGATIVE) Acetaminophen ug/mL Ur Barbiturates Screen NEGATIVE (NEGATIVE) Ur Phencyclidine Scrn NEGATIVE (NEGATIVE) Ur Amphetamine Screen NEGATIVE (NEGATIVE) U Methamphetamines Scrn NEGATIVE (NEGATIVE) U Benzodiazepines Scrn NEGATIVE (NEGATIVE) U Cocaine Metab Screen NEGATIVE (NEGATIVE) U Marijuana (THC) Screen NEGATIVE (NEGATIVE) Ethyl Alcohol 4 mg/dL 08/22/19 08/22/19 Range/Units 20:35 20:35 Sodium 142 (136-148) mmol/L Potassium 3.8 (3.5-5.1) mmol/L Chloride 105 (98-107) mmol/L Carbon Dioxide 25.3 (21.0-32.0) mmol/L BUN 13 (7.0-18.0) mg/dL Creatinine 1.2 (0.8-1.3) mg/dL Est Cr Clr Drug Dosing TNP Estimated GFR (MDRD) > 60.0 ml/min Glucose 109 H (74-106) mg/dL Calcium 9.1 (8.5-10.1) mg/dL Magnesium 1.9 (1.8-2.4) mg/dL Total Bilirubin 0.3 (0.2-1.0) mg/dL AST 15 (15-37) IU/L ALT 34 (14-63) IU/L Alkaline Phosphatase 115 (46-116) U/L Total Protein 7.3 (6.4-8.2) g/dL Albumin 4.5 (3.4-5.0) g/dL Globulin 2.8 (2.6-4.0) g/dL Albumin/Globulin Ratio 1.6 (0.9-1.6) TSH 3rd Generation 2.88 (0.36-3.74) uIU/mL Urine Color Urine Appearance Urine pH (5.0-8.0) Ur Specific [place] (1.001-1.035) Urine Protein (NEGATIVE) mg/dL Urine Glucose (UA) (NEGATIVE) mg/dL Urine Ketones (NEGATIVE) mg/dL Urine Occult Blood (NEGATIVE) Urine Nitrite (NEGATIVE) Urine Bilirubin (NEGATIVE) Urine Urobilinogen (<2.0) EU/dL Ur Leukocyte Esterase (NEGATIVE) Salicylates 1.2 (0-20) mg/dL Urine Opiates Screen (NEGATIVE) Ur Oxycodone Screen (NEGATIVE) Urine Methadone Screen (NEGATIVE) Acetaminophen <2.0 ug/mL Ur Barbiturates Screen (NEGATIVE) Ur Phencyclidine Scrn (NEGATIVE) Ur Amphetamine Screen (NEGATIVE) U Methamphetamines Scrn (NEGATIVE) U Benzodiazepines Scrn (NEGATIVE) U Cocaine Metab Screen (NEGATIVE) U Marijuana (THC) Screen (NEGATIVE) Ethyl Alcohol mg/dL Departure - Departure Time of Disposition: 19:52 Disposition: DC/Tfer to Psych Hosp/Unit 65 Clinical Impression: Suicidal ideation, Depressive disorder - Discharge Information Referrals: PCP,None [Primary Care Provider] - Forms: ED Department Discharge Sepsis Event Note - Evaluation Sepsis Screening Result: No Definite Risk - Focused Exam Date Exam was Performed: 08/23/19 Time Exam was Performed: 19:52 - My Orders Last 24 Hours: My Active Orders 08/22/19 21:12 EKG Documentation Completion [RC] STAT - Assessment/Plan Last 24 Hours: My Active Orders 08/22/19 21:12 EKG Documentation Completion [RC] STAT
--- NOTE | 2019-08-22 20:41 | EDM.PDOCBH ---
ED HPI GENERAL MEDICAL PROBLEM - General Chief Complaint: Behavioral/Psych Stated Complaint: suicide attempt Time Seen by Provider: 08/22/19 20:26 Source of Information: Reports: Patient History Limitations: Reports: No Limitations - History of Present Illness INITIAL COMMENTS - FREE TEXT/NARRATIVE: 28-year-old gentleman who presents to the emergency room with a chief complaint of being depressed and trying to kill himself. 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 States he now has a sour stomach no other symptoms. Patient denies shortness of breath, chest pain, severe abdominal pain Onset: Today Onset Date: 08/22/19 Duration: Minutes:, Hour(s):, Resolved Prior to Arrival Location: Reports: Abdomen Quality: Reports: Other (sour abdomen) Severity: Mild Improves with: Reports: None Worsens with: Reports: None Context: Reports: Other (Attempted to drink bleach) Associated Symptoms: Reports: No Other Symptoms - Related Data Allergies Allergy/AdvReac Type Severity Reaction Status Date / Time No Known Allergies Allergy Verified 08/22/19 20:32 Home Meds: Home Meds DULoxetine [Cymbalta] 60 mg PO DAILY 01/07/15 [History] Docusate Sodium [Colace] 100 mg PO DAILY 01/07/15 [History] Fluticasone Propionate [Flonase] 1 - 2 sprays NASBOTH DAILY 01/07/15 [History] Levothyroxine [Synthroid] 88 mcg PO ACBREAKFAST 01/07/15 [History] Loratadine [Claritin] 10 mg PO DAILY 01/07/15 [History] risperiDONE [Risperdal] 0.5 mg PO DAILY PRN 01/07/15 [History] lamoTRIgine [Lamictal] 600 mg PO QAM 04/19/15 [History] risperiDONE [Risperdal] 2 mg PO QAM 01/31/16 [History] risperiDONE [Risperdal] 4 mg PO BEDTIME 01/31/16 [History] Multivitamins [Tab-A-Rashard] 1 tab PO DAILY 09/08/17 [History] Prazosin [Minpress] 1 mg PO BEDTIME 09/08/17 [History] lamoTRIgine [Lamictal] 400 mg PO QPM 09/08/17 [History] DULoxetine HCl [Cymbalta] 30 mg PO DAILY 07/20/19 [History] Past Medical History HEENT History: Reports: Allergic Rhinitis Other HEENT History: left eye lid is saggy since , causing a small amount of vision loss Cardiovascular History: Reports: None Respiratory History: Reports: None Gastrointestinal History: Reports: Chronic Constipation Genitourinary History: Reports: None Musculoskeletal History: Reports: Fracture Other Musculoskeletal History: hx of fx left foot Neurological History: Reports: Seizure Other Neuro History: hydrocephalus, hx of [employer] shunt as child....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), last one was over 1 year ago Psychiatric History: Reports: Suicidal Ideation, Other (See Below) Other Psychiatric History: self abuse Endocrine/Metabolic History: Reports: Hypothyroidism, Obesity/BMI 30+ Hematologic History: Reports: None Immunologic History: Reports: None Oncologic (Cancer) History: Reports: None Dermatologic History: Reports: None - Infectious Disease History Infectious Disease History: Reports: None - Past Surgical History Head Surgeries/Procedures: Reports: None HEENT Surgical History: Reports: None Cardiovascular Surgical History: Reports: None Respiratory Surgical History: Reports: None GI Surgical History: Reports: Colonoscopy Male Surgical History: Reports: None Endocrine Surgical History: Reports: None Neurological Surgical History: Reports: None Musculoskeletal Surgical History: Reports: None Oncologic Surgical History: Reports: None Dermatological Surgical History: Reports: None Social & Family History - Family History Family Medical History: Noncontributory - Caffeine Use Caffeine Use: Reports: None ED ROS GENERAL - Review of Systems Review Of Systems: See Below Constitutional: Reports: No Symptoms HEENT: Reports: No Symptoms Respiratory: Reports: No Symptoms Cardiovascular: Reports: No Symptoms Endocrine: Reports: No Symptoms GI/Abdominal: Reports: Abdominal Pain : Reports: No Symptoms Musculoskeletal: Reports: No Symptoms Skin: Reports: No Symptoms Neurological: Reports: No Symptoms Psychiatric: Reports: Depression, Suicidal Ideation Hematologic/Lymphatic: Reports: No Symptoms Immunologic: Reports: No Symptoms ED EXAM, BEHAVIORAL HEALTH - Physical Exam Exam: See Below Exam Limited By: No Limitations General Appearance: Alert, WD/WN, No Apparent Distress Eye Exam: Bilateral Eye: Normal Fundi, Normal Inspection Ears: Normal External Exam, Normal Canal, Hearing Grossly Normal, Normal TMs Nose: Normal Inspection, Normal Mucosa, No Blood Throat/Mouth: Normal Inspection, Normal Lips, Normal Teeth, Normal Gums, Normal Oropharynx, Normal Voice, No Airway Compromise Head: Atraumatic, Normocephalic Neck: Normal Inspection, Supple, Non-Tender, Full Range of Motion Respiratory/Chest: No Respiratory Distress, Lungs Clear, Normal Breath Sounds, No Accessory Muscle Use, Chest Non-Tender Cardiovascular: Normal Peripheral Pulses, Regular Rate, Rhythm, No Edema, No Gallop, No JVD, No Murmur GI/Abdominal: Normal Bowel Sounds, Soft, Non-Tender, No Organomegaly, No Distention, No Abnormal Bruit (Male) Exam: Normal Inspection Rectal (Males) Exam: Deferred Back Exam: Normal Inspection, Full Range of Motion Extremities: Normal Inspection, Normal Range of Motion, Non-Tender, No Pedal Edema, Normal Capillary Refill Neurological: Alert, Normal Mood/Affect, CN II-XII Intact, Normal Cognition, Normal Gait, Normal Reflexes, No Motor/Sensory Deficits, Oriented x 3, Opens Eyes to Commands, Other Psychiatric: Suicidal Plan, Suicidal Thoughts Skin Exam: Warm, Dry, Intact, Normal color, No rash COURSE, BEHAVIORAL HEALTH COMP - Course Vital Signs: Last Vital Signs Temp 97.6 F 08/22/19 20:28 Pulse 93 08/22/19 20:28 Resp 18 08/22/19 20:28 BP 136/93 H 08/22/19 20:28 Pulse Ox 94 L 08/22/19 20:28 Orders, Labs, Meds: Active Orders 24 hr Category Date Time Status EKG Documentation Completion [RC] STAT Care 08/22/19 21:12 Active Laboratory Tests 08/22/19 08/22/19 Range/Units 20:28 20:35 Sodium 142 (136-148) mmol/L Potassium 3.8 (3.5-5.1) mmol/L Chloride 105 (98-107) mmol/L Carbon Dioxide 25.3 (21.0-32.0) mmol/L BUN 13 (7.0-18.0) mg/dL Creatinine 1.2 (0.8-1.3) mg/dL Est Cr Clr Drug Dosing TNP Estimated GFR (MDRD) > 60.0 ml/min Glucose 109 H (74-106) mg/dL Calcium 9.1 (8.5-10.1) mg/dL Magnesium 1.9 (1.8-2.4) mg/dL Total Bilirubin 0.3 (0.2-1.0) mg/dL AST 15 (15-37) IU/L ALT 34 (14-63) IU/L Alkaline Phosphatase 115 (46-116) U/L Total Protein 7.3 (6.4-8.2) g/dL Albumin 4.5 (3.4-5.0) g/dL Globulin 2.8 (2.6-4.0) g/dL Albumin/Globulin Ratio 1.6 (0.9-1.6) TSH 3rd Generation 2.88 (0.36-3.74) uIU/mL Urine Color YELLOW Urine Appearance CLEAR Urine pH 6.5 (5.0-8.0) Ur Specific [place] 1.020 (1.001-1.035) Urine Protein NEGATIVE (NEGATIVE) mg/dL Urine Glucose (UA) NEGATIVE (NEGATIVE) mg/dL Urine Ketones NEGATIVE (NEGATIVE) mg/dL Urine Occult Blood NEGATIVE (NEGATIVE) Urine Nitrite NEGATIVE (NEGATIVE) Urine Bilirubin NEGATIVE (NEGATIVE) Urine Urobilinogen 0.2 (<2.0) EU/dL Ur Leukocyte Esterase NEGATIVE (NEGATIVE) Departure - Departure Time of Disposition: 01:32 Disposition: DC/Tfer to Psych Hosp/Unit 65 Condition: Good Clinical Impression: Suicidal ideation, Depressive disorder - Discharge Information Referrals: PCP,None [Primary Care Provider] - Forms: ED Department Discharge Sepsis Event Note - Evaluation Sepsis Screening Result: No Definite Risk - Focused Exam Vital Signs: Vital Signs Temp Pulse Resp BP Pulse Ox 08/22/19 20:28 97.6 F 93 18 136/93 H 94 L Date Exam was Performed: 08/22/19 Time Exam was Performed: 23:07 - My Orders Last 24 Hours: My Active Orders 08/22/19 21:12 EKG Documentation Completion [RC] STAT - Assessment/Plan Last 24 Hours: My Active Orders 08/22/19 21:12 EKG Documentation Completion [RC] STAT
--- NOTE | 2019-08-22 21:32 | CR ---
INDICATION: Possible aspiration following drinking bleach. TECHNIQUE: PA and lateral chest x-ray. COMPARISON: Chest x-ray 04/19/2019. FINDINGS: Patient has been extubated since the prior exam. Heart size is normal. Very shallow inspiration. No focal infiltrate or consolidation in either lung. 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 Old fracture left clavicle stable. Chest otherwise unremarkable. Dictated by Len Nichols MD @ Aug 22 2019 9:30PM Signed by Dr. Len Nichols @ Aug 22 2019 9:31PM
[2019-08-22 21:35] LABS: BLOOD UREA NITROGEN,BUN 13 mg/dL (7.0-18.0); CARBON DIOXIDE,CO2 25.3 mmol/L (21.0-32.0); CHLORIDE,CL 105 mmol/L (98-107); GLUCOSE RANDOM 109 mg/dL (74-106); POTASSIUM,K 3.8 mmol/L (3.5-5.1); SODIUM,NA 142 mmol/L (136-148)
[2019-08-22 23:46] LABS: ACETAMINOPHEN <2.0 ug/mL
[2019-08-23 04:52] VITALS: BP 126/93; PULSE 62
== END 2019-08-23 04:11 ==
LOC: MW.ED 20:24
DX: R19.8 Other specified symptoms and signs involving the digestive system and abdomen (principal); T65.892A Toxic effect of other specified substances, intentional self-harm, initial encounter; F32.9 Major depressive disorder, single episode, unspecified; E03.9 Hypothyroidism, unspecified; E66.9 Obesity, unspecified; Z79.890 Hormone replacement therapy
CPT/HCPCS: 36415; 71046; 80053; 80305; 81003; 83735; 84443; 85025; 93005; 99285; G0480

== ENCOUNTER 2020-05-26 22:22 | Emergency (ER) | payer MEDICARE, MEDICAID ==
[2020-05-26] MEDS ORDERED: Sodium Chloride 0.9% 10 ML Syringe FLUSH PRN (23:00)
[2020-05-26] MEDS ORDERED: Sodium Chloride 0.9% 2.5 ML Syringe FLUSH PRN (23:00)
--- NOTE | 2020-05-26 23:05 | EDM.PDOC ---
ED HPI GENERAL MEDICAL PROBLEM - General Chief Complaint: Behavioral/Psych Stated Complaint: MEDICATION PROBLEMS, MENTAL HEALTH Time Seen by Provider: 05/26/20 22:28 - History of Present Illness INITIAL COMMENTS - FREE TEXT/NARRATIVE: History of present illness: Since from a intermediate. Under supervision because of his inability to care for himself. He has tried suicide in the past by drinking cleaning fluid. Today he said he was depressed and needed his medications adjusted. He also feels anxious. He called his car deliverer into the facility and said that he felt suicidal. He was ambiguous about this when I interviewed him. With his car deliverer and our nurse present he said that he did not want to live. He also said that he thought he would not actively try to hurt himself or anyone else. Then when he was offered the possibility that he could be transferred to another facility for emergency psychiatric intervention or wait to have his doctor adjust his medicines as he had suggested and talk to his counselors in the morning. He said that he thought he might likely commit suicide because he would get so anxious and upset about this over the weekend. Patient has no physical complaint. Further history reveals that the police found him wandering and he said he wanted to go into the street and be hit by a car. [] Review of systems: As per history of present illness and below otherwise all systems reviewed and negative. Past medical history: As per history of present illness and as reviewed below otherwise noncontributory. Surgical history: As per history of present illness and as reviewed below otherwise noncontributory. Social history: No reported history of drug or alcohol abuse. Family history: As per history of present illness and as reviewed below otherwise noncontributory. Physical exam: Constitutional - well developed, well-nourished and in no acute distress HEENT - normocephalic, no evidence of trauma - external nose and mouth normal - no mass in neck and no JVD - mucosae moist EYES - full EOM, PERRL, no icterus - no evidence of inflammation, injection, or drainage Respiratory - no respiratory distress, equal bilateral expansion, lungs clear to auscultation and no abnormal lung sounds Cardiovascular - Regular Rhythm with S1 and S2 appreciated and no murmur, gallop or rub. GI - abdomen soft without distension or organomegaly - normal bowel sounds - no guard or rebound Musculoskeletal no gross deformity of long bones or joints - no tenderness, swelling or edema Neurologic - Alert and oriented times four - CN II-XII grossly intact - motor sensory and coordination symmetrically normal Psychiatric - appropriate mood and affect with normal thought content states he might get angry and hurt himself if he does not get help tonight. Hematologic - No petechiae or purpura - mucosa appropriate color and sclera not pale - normal nail bed color and refill Integument - no rash or evidence of trauma - normal turgor Diagnostics: [] Therapeutics: [] Impression: [] Plan: [] Definitive disposition and diagnosis as appropriate pending reevaluation and review of above. - Related Data Allergies Allergy/AdvReac Type Severity Reaction Status Date / Time No Known Allergies Allergy Verified 05/26/20 22:53 Home Meds: Home Meds Docusate Sodium [Colace] 100 mg PO DAILY 01/07/15 [History] Levothyroxine [Synthroid] 88 mcg PO DAILY 01/07/15 [History] Loratadine [Claritin] 10 mg PO DAILY 01/07/15 [History] risperiDONE [Risperdal] 0.5 mg PO DAILY PRN 01/07/15 [History] risperiDONE [Risperdal] 4 mg PO BEDTIME 01/31/16 [History] Multivitamins [Tab-A-Rashard] 1 tab PO DAILY 09/08/17 [History] Prazosin [Minpress] 1 mg PO BEDTIME 09/08/17 [History] DULoxetine [Cymbalta] 60 mg PO BID 05/26/20 [History] Fluticasone Propionate [Flonase] 1 - 2 spray INH DAILY 05/26/20 [History] lamoTRIgine [Lamictal] 400 mg PO QAM 05/26/20 [History] lamoTRIgine [Lamictal] 600 mg PO BEDTIME 05/26/20 [History] risperiDONE Microspheres [Risperdal Consta] 50 mg IM ASDIRECTED 05/26/20 [History] Past Medical History HEENT History: Reports: Allergic Rhinitis Other HEENT History: left eye lid is saggy since , causing a small amount of vision loss. 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 Psychiatric History: Reports: ADD, Suicidal Ideation, Other (See Below) Other Psychiatric History: impulse control disorder; elements of atypical pervasive development disorder; duglas-abuse Endocrine/Metabolic History: Reports: Hypothyroidism, Obesity/BMI 30+, Other (See Below) Other Endocrine/Metabolic History: Thyroid imbalance Hematologic History: Reports: None Immunologic History: Reports: None Oncologic (Cancer) History: Reports: None Dermatologic History: Reports: None - Infectious Disease History Infectious Disease History: Reports: None - Past Surgical History Head Surgeries/Procedures: Reports: None HEENT Surgical History: Reports: None Cardiovascular Surgical History: Reports: None Respiratory Surgical History: Reports: None GI Surgical History: Reports: Colonoscopy Male Surgical History: Reports: None Endocrine Surgical History: Reports: None Neurological Surgical History: Reports: None Musculoskeletal Surgical History: Reports: None Oncologic Surgical History: Reports: None Dermatological Surgical History: Reports: None Social & Family History - Family History Family Medical History: Noncontributory - Tobacco Use Smoking Status *Q: Current Every Day Smoker Years of Tobacco use: 1 Packs/Tins Daily: 1 - Caffeine Use Caffeine Use: Reports: Coffee - Recreational Drug Use Recreational Drug Use: No ED ROS GENERAL - Review of Systems Review Of Systems: Comprehensive ROS is negative, except as noted in HPI. ED EXAM, GENERAL - Physical Exam Exam: See Below Free Text/Narrative:: My exam is in the HPI Course - Vital Signs Text/Narrative:: Discussed with Dr. Damon who accepted the patient at [facility]. Discussed with the patient's supervisor maintenance and custodians television maintenance man who agreed with the plan. Last Recorded V/S: Last Vital Signs Temp 96.9 F 05/26/20 22:39 Pulse 111 H 05/26/20 22:39 Resp 18 05/26/20 22:39 BP 127/86 05/26/20 22:39 Pulse Ox 94 L 05/26/20 22:39 - Orders/Labs/Meds Orders: Active Orders 24 hr Category Date Time Status EKG Documentation Completion [RC] AM Care 05/26/20 23:00 Active Sodium Chloride 0.9% [Saline Flush] Med 05/26/20 23:00 Active 10 ml FLUSH ASDIRECTED PRN Sodium Chloride 0.9% [Saline Flush] Med 05/26/20 23:00 Active 2.5 ml FLUSH ASDIRECTED PRN Saline Lock Insert [OM.PC] Stat Oth 05/26/20 23:01 Ordered Medication Orders Sodium Chloride (Saline Flush) 10 ml FLUSH ASDIRECTED PRN PRN Reason: Keep Vein Open Sodium Chloride (Saline Flush) 2.5 ml FLUSH ASDIRECTED PRN PRN Reason: Keep Vein Open Labs: Laboratory Tests 05/26/20 05/26/20 05/26/20 Range/Units 23:05 23:05 23:10 WBC 8.99 (4.0-11.0) K/uL RBC 5.34 (4.50-5.90) M/uL Hgb 16.4 (13.0-17.0) g/dL Hct 47.9 (38.0-50.0) % MCV 89.7 (80.0-98.0) fL MCH 30.7 (27.0-32.0) pg MCHC 34.2 (31.0-37.0) g/dL RDW Std Deviation 46.9 (28.0-62.0) fl RDW Coeff of [place] 14 (11.0-15.0) % Plt Count 144 L (150-400) K/uL MPV 8.60 (7.40-12.00) fL Neut % (Auto) 65.6 (48.0-80.0) % Lymph % (Auto) 26.4 (16.0-40.0) % [place] % (Auto) 7.9 (0.0-15.0) % Eos % (Auto) 0.0 (0.0-7.0) % Baso % (Auto) 0.1 (0.0-1.5) % Neut # (Auto) 5.9 H (1.4-5.7) K/uL Lymph # (Auto) 2.4 (0.6-2.4) K/uL [place] # (Auto) 0.7 (0.0-0.8) K/uL Eos # (Auto) 0.0 (0.0-0.7) K/uL Baso # (Auto) 0.0 (0.0-0.1) K/uL Nucleated RBC % 0.0 /100WBC Nucleated RBCs # 0 K/uL Sodium (136-148) mmol/L Potassium (3.5-5.1) mmol/L Chloride (98-107) mmol/L Carbon Dioxide (21.0-32.0) mmol/L BUN (7.0-18.0) mg/dL Creatinine (0.8-1.3) mg/dL Est Cr Clr Drug Dosing Estimated GFR (MDRD) ml/min Glucose (74-106) mg/dL Calcium (8.5-10.1) mg/dL Total Bilirubin (0.2-1.0) mg/dL AST (15-37) IU/L ALT (14-63) IU/L Alkaline Phosphatase (46-116) U/L Total Protein (6.4-8.2) g/dL Albumin (3.4-5.0) g/dL Globulin (2.6-4.0) g/dL Albumin/Globulin Ratio (0.9-1.6) Urine Color YELLOW Urine Appearance CLEAR Urine pH 6.0 (5.0-8.0) Ur Specific [place] 1.020 (1.001-1.035) Urine Protein NEGATIVE (NEGATIVE) mg/dL Urine Glucose (UA) NEGATIVE (NEGATIVE) mg/dL Urine Ketones NEGATIVE (NEGATIVE) mg/dL Urine Occult Blood NEGATIVE (NEGATIVE) Urine Nitrite NEGATIVE (NEGATIVE) Urine Bilirubin NEGATIVE (NEGATIVE) Urine Urobilinogen 0.2 (<2.0) EU/dL Ur Leukocyte Esterase NEGATIVE (NEGATIVE) Salicylates (0-20) mg/dL Urine Opiates Screen NEGATIVE (NEGATIVE) Ur Oxycodone Screen NEGATIVE (NEGATIVE) Urine Methadone Screen NEGATIVE (NEGATIVE) Acetaminophen ug/mL Ur Barbiturates Screen NEGATIVE (NEGATIVE) Ur Phencyclidine Scrn NEGATIVE (NEGATIVE) Ur Amphetamine Screen NEGATIVE (NEGATIVE) U Methamphetamines Scrn NEGATIVE (NEGATIVE) U Benzodiazepines Scrn NEGATIVE (NEGATIVE) U Cocaine Metab Screen NEGATIVE (NEGATIVE) U Marijuana (THC) Screen NEGATIVE (NEGATIVE) Ethyl Alcohol mg/dL 05/26/20 05/26/20 Range/Units 23:10 23:10 WBC (4.0-11.0) K/uL RBC (4.50-5.90) M/uL Hgb (13.0-17.0) g/dL Hct (38.0-50.0) % MCV (80.0-98.0) fL MCH (27.0-32.0) pg MCHC (31.0-37.0) g/dL RDW Std Deviation (28.0-62.0) fl RDW Coeff of [place] (11.0-15.0) % Plt Count (150-400) K/uL MPV (7.40-12.00) fL Neut % (Auto) (48.0-80.0) % Lymph % (Auto) (16.0-40.0) % [place] % (Auto) (0.0-15.0) % Eos % (Auto) (0.0-7.0) % Baso % (Auto) (0.0-1.5) % Neut # (Auto) (1.4-5.7) K/uL Lymph # (Auto) (0.6-2.4) K/uL [place] # (Auto) (0.0-0.8) K/uL Eos # (Auto) (0.0-0.7) K/uL Baso # (Auto) (0.0-0.1) K/uL Nucleated RBC % /100WBC Nucleated RBCs # K/uL Sodium 141 (136-148) mmol/L Potassium 3.7 (3.5-5.1) mmol/L Chloride 104 (98-107) mmol/L Carbon Dioxide 26.9 (21.0-32.0) mmol/L BUN 13 (7.0-18.0) mg/dL Creatinine 1.2 (0.8-1.3) mg/dL Est Cr Clr Drug Dosing TNP Estimated GFR (MDRD) > 60.0 ml/min Glucose 106 (74-106) mg/dL Calcium 8.7 (8.5-10.1) mg/dL Total Bilirubin 0.5 (0.2-1.0) mg/dL AST 22 (15-37) IU/L ALT 32 (14-63) IU/L Alkaline Phosphatase 98 (46-116) U/L Total Protein 6.7 (6.4-8.2) g/dL Albumin 4.4 (3.4-5.0) g/dL Globulin 2.3 L (2.6-4.0) g/dL Albumin/Globulin Ratio 1.9 H (0.9-1.6) Urine Color Urine Appearance Urine pH (5.0-8.0) Ur Specific [place] (1.001-1.035) Urine Protein (NEGATIVE) mg/dL Urine Glucose (UA) (NEGATIVE) mg/dL Urine Ketones (NEGATIVE) mg/dL Urine Occult Blood (NEGATIVE) Urine Nitrite (NEGATIVE) Urine Bilirubin (NEGATIVE) Urine Urobilinogen (<2.0) EU/dL Ur Leukocyte Esterase (NEGATIVE) Salicylates 2.9 (0-20) mg/dL Urine Opiates Screen (NEGATIVE) Ur Oxycodone Screen (NEGATIVE) Urine Methadone Screen (NEGATIVE) Acetaminophen <2.0 ug/mL Ur Barbiturates Screen (NEGATIVE) Ur Phencyclidine Scrn (NEGATIVE) Ur Amphetamine Screen (NEGATIVE) U Methamphetamines Scrn (NEGATIVE) U Benzodiazepines Scrn (NEGATIVE) U Cocaine Metab Screen (NEGATIVE) U Marijuana (THC) Screen (NEGATIVE) Ethyl Alcohol <3 mg/dL Meds: Medications Generic Name Dose Route Start Last Admin Trade Name Freq PRN Reason Stop Dose Admin Sodium Chloride 10 ml 05/26/20 23:00 Saline Flush FLUSH ASDIRECTED PRN Keep Vein Open Sodium Chloride 2.5 ml 05/26/20 23:00 Saline Flush FLUSH ASDIRECTED PRN Keep Vein Open Departure - Departure Time of Disposition: 23:53 Disposition: DC/Tfer to Psych Hosp/Unit 65 Clinical Impression: Anxiety, Suicidal ideation - Discharge Information Referrals: Magan Barr MD [Primary Care Provider] - Forms: ED Department Discharge Sepsis Event Note (ED) - Evaluation Sepsis Screening Result: No Definite Risk - Focused Exam Vital Signs: Vital Signs Temp Pulse Resp BP Pulse Ox 05/26/20 22:39 96.9 F 111 H 18 127/86 94 L - My Orders Last 24 Hours: My Active Orders 05/26/20 23:00 EKG Documentation Completion [RC] AM Sodium Chloride 0.9% [Saline Flush] 10 ml FLUSH ASDIRECTED PRN Sodium Chloride 0.9% [Saline Flush] 2.5 ml FLUSH ASDIRECTED PRN 05/26/20 23:01 Saline Lock Insert [OM.PC] Stat - Assessment/Plan Last 24 Hours: My Active Orders 05/26/20 23:00 EKG Documentation Completion [RC] AM Sodium Chloride 0.9% [Saline Flush] 10 ml FLUSH ASDIRECTED PRN Sodium Chloride 0.9% [Saline Flush] 2.5 ml FLUSH ASDIRECTED PRN 05/26/20 23:01 Saline Lock Insert [OM.PC] Stat
[2020-05-26 23:38] LABS: BLOOD UREA NITROGEN,BUN 13 mg/dL (7.0-18.0); CARBON DIOXIDE,CO2 26.9 mmol/L (21.0-32.0); CHLORIDE,CL 104 mmol/L (98-107); GLUCOSE RANDOM 106 mg/dL (74-106); POTASSIUM,K 3.7 mmol/L (3.5-5.1); SODIUM,NA 141 mmol/L (136-148)
[2020-05-26 23:39] LABS: ACETAMINOPHEN <2.0 ug/mL
[2020-05-27 00:07] VITALS: BP 127/88; PULSE 96
== END 2020-05-27 01:05 ==
LOC: MW.ED 22:22
DX: F41.9 Anxiety disorder, unspecified (principal); R45.851 Suicidal ideations; E03.9 Hypothyroidism, unspecified; E66.9 Obesity, unspecified; F17.210 Nicotine dependence, cigarettes, uncomplicated; Z79.899 Other long term (current) drug therapy
CPT/HCPCS: 36415; 80053; 80305-QW; 80307; 81003; 85025; 93005; 99285-25

== ENCOUNTER 2020-07-20 20:29 | Emergency (ER) | payer MEDICARE, MEDICAID ==
[2020-07-20 20:52] VITALS: BP 128/76; PULSE 81
--- NOTE | 2020-07-20 22:06 | EDM.PDOC ---
ED HPI GENERAL MEDICAL PROBLEM - General Chief Complaint: Skin Complaint Stated Complaint: LEG PAIN Time Seen by Provider: 07/20/20 22:02 Source of Information: Reports: Patient History Limitations: Reports: No Limitations - History of Present Illness INITIAL COMMENTS - FREE TEXT/NARRATIVE: 29-year-old male with history of intellectual disability presents with right knee redness after falling on snow 1 week ago on his right knee. He is accompanied by his caregiver who states that he has noted yellow and red drainage coming out from the right knee wound for 2 days. He denies fever, chills, pain with range of motion. He resides in [facility]. ROS: A 10-point review of systems, other than pertinent positives and negatives as stated per HPI, is otherwise negative Past medical history: No additional pertinent history Past Surgical history: No additional pertinent history Social history: No additional pertinent history Family history: No additional pertinent history PHYSICAL EXAM General: AOx4, GCS = 15, No distress HEENT: dry mucous membrane Neck: supple, no meningismus, no Kernig or Brudzinski Cardiac: S1S2 RRR Respiratory: CTAB, no crackles or rales, no wheezing Abdomen: Soft, nontender, no rebound or guarding, nondistended, no pulsatile mass. Back: nontender Musculoskeletal: NVI distally, no tenderness to right knee with range of motion. No right knee effusion. Abrasion to the right patella with surrounding erythema. Nontender patella Neuro: No focal deficits - Related Data Allergies Allergy/AdvReac Type Severity Reaction Status Date / Time No Known Allergies Allergy Verified 07/20/20 20:51 Home Meds: Home Meds Docusate Sodium [Colace] 100 mg PO DAILY 01/07/15 [History] Levothyroxine [Synthroid] 88 mcg PO DAILY 01/07/15 [History] Loratadine [Claritin] 10 mg PO DAILY 01/07/15 [History] risperiDONE [Risperdal] 0.5 mg PO DAILY PRN 01/07/15 [History] risperiDONE [Risperdal] 4 mg PO BEDTIME 01/31/16 [History] Multivitamins [Tab-A-Rashard] 1 tab PO DAILY 09/08/17 [History] Prazosin [Minpress] 1 mg PO BEDTIME 09/08/17 [History] DULoxetine [Cymbalta] 60 mg PO BID 05/26/20 [History] Fluticasone Propionate [Flonase] 1 - 2 spray INH DAILY 05/26/20 [History] lamoTRIgine [Lamictal] 400 mg PO QAM 05/26/20 [History] lamoTRIgine [Lamictal] 600 mg PO BEDTIME 05/26/20 [History] risperiDONE Microspheres [Risperdal Consta] 50 mg IM ASDIRECTED 05/26/20 [History] Sulfamethoxazole/Trimethoprim [Bactrim Ds Tablet] 2 each PO BID #40 tablet 07/20/20 [Rx] cephALEXin [Keflex] 500 mg PO Q8H #30 cap 07/20/20 [Rx] Past Medical History HEENT History: Reports: Allergic Rhinitis Other HEENT History: left eye lid is saggy since , causing a small amount of vision loss. 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 Jordan mims intellectula functioning. L-side unilateral cranial synotosis Psychiatric History: Reports: ADD, Suicidal Ideation, Other (See Below) Other Psychiatric History: impulse control disorder; elements of atypical pervasive development disorder; duglas-abuse Endocrine/Metabolic History: Reports: Hypothyroidism, Obesity/BMI 30+, Other (See Below) Other Endocrine/Metabolic History: Thyroid imbalance Hematologic History: Reports: None Immunologic History: Reports: None Oncologic (Cancer) History: Reports: None Dermatologic History: Reports: None - Infectious Disease History Infectious Disease History: Reports: None - Past Surgical History Head Surgeries/Procedures: Reports: None HEENT Surgical History: Reports: None Cardiovascular Surgical History: Reports: None Respiratory Surgical History: Reports: None GI Surgical History: Reports: Colonoscopy Male Surgical History: Reports: None Endocrine Surgical History: Reports: None Neurological Surgical History: Reports: None Musculoskeletal Surgical History: Reports: None Other Musculoskeletal Surgeries/Procedures:: fracture left foot Oncologic Surgical History: Reports: None Dermatological Surgical History: Reports: None Social & Family History - Family History Family Medical History: No Pertinent Family History - Tobacco Use Tobacco Use Status *Q: Current Every Day Tobacco User Years of Tobacco use: 1 Packs/Tins Daily: 1 - Caffeine Use Caffeine Use: Reports: Coffee - Recreational Drug Use Recreational Drug Use: No ED ROS GENERAL - Review of Systems Review Of Systems: See Below (see dictation) ED EXAM, SKIN/RASH Exam: See Below (see dictation) Course - Vital Signs Last Recorded V/S: Last Vital Signs Temp 97.3 F 07/20/20 20:49 Pulse 81 07/20/20 20:49 Resp 16 07/20/20 20:49 BP 128/76 07/20/20 20:49 Pulse Ox 94 L 07/20/20 20:49 - Re-Assessments/Exams Free Text/Narrative Re-Assessment/Exam: 07/20/20 2341 he is currently stable for discharge. I performed a repeat exam and did not appreciate new abnormal findings. Patient exhibits normal vital signs and has a normal gait on road test. I advised the patient to return to the ER for reevaluation if symptoms worsened, including fever, worsening pain, or any other worrisome symptoms. I instructed the patient to follow up with their PCP within 2-3 days. MEDICAL DECISION MAKING: I reviewed the patients past medical records, lab and radiographic findings. I discussed the case with the patient. My differential diagnosis included: cellulitis, patella fracture. No suspicion for septic arthritis. Departure - Departure Time of Disposition: 23:41 Disposition: Home, Self-Care 01 Condition: Good Clinical Impression: Cellulitis - Discharge Information *PRESCRIPTION DRUG MONITORING PROGRAM REVIEWED*: Not Applicable *COPY OF PRESCRIPTION DRUG MONITORING REPORT IN PATIENT JOVAN: Not Applicable Prescriptions: Sulfamethoxazole/Trimethoprim [Bactrim Ds Tablet] 2 each PO BID #40 tablet cephALEXin [Keflex] 500 mg PO Q8H #30 cap Instructions: Cellulitis, Adult Referrals: Magan Barr MD [Primary Care Provider] - Forms: ED Department Discharge Additional Instructions: The need for follow-up, as well as the timing and circumstances, are variable depending upon the specifics of your emergency department visit. If you don't have a primary care physician on staff, we will provide you with a referral. We always advise you to contact your personal physician following an emergency department visit to inform them of the circumstance of the visit and for follow-up with them and/or the need for any referrals to a consulting specialist. The emergency department will also refer you to a specialist when appropriate. This referral assures that you have the opportunity for follow-up care with a specialist. All of these measure are taken in an effort to provide you with optimal care, which includes your follow-up. Under all circumstances we always encourage you to contact your private physician who remains a resource for coordinating your care. When calling for follow-up care, please make the office aware that this follow-up is from your recent emergency room visit. If for any reason you are refused follow-up, please contact the [facility] Emergency Department at and asked to speak to the emergency department charge nurse. If you do not have a primary care doctor, please follow up with the clinics below within 3-5 days. [facility] [address] [place] [id number] [facility] [address] [place] [address] Sepsis Event Note (ED) - Evaluation Sepsis Screening Result: No Definite Risk
--- NOTE | 2020-07-20 23:28 | CR ---
Indication: Right knee injury Technique: Three views right knee Comparison: None Findings: Bones: Alignment is normal. No fractures or bone lesions. Joint spaces: Unremarkable. Soft tissues: Unremarkable. Impression: Negative. Dictated by Kirstie Arenas MD @ Jul 20 2020 11:27PM Signed by Dr. Kirstie Arenas @ Jul 20 2020 11:27PM
== END 2020-07-20 23:55 | disposition home or self-care (01) ==
LOC: MW.ED 20:29
DX: S80.211A Abrasion, right knee, initial encounter (principal); L03.115 Cellulitis of right lower limb; F17.210 Nicotine dependence, cigarettes, uncomplicated; R56.9 Unspecified convulsions; E03.9 Hypothyroidism, unspecified; E66.9 Obesity, unspecified; Z79.899 Other long term (current) drug therapy; W00.0XXA Fall on same level due to ice and snow, initial encounter
CPT/HCPCS: 73562-26-RT; 73562-RT; 99283; 99283-25

== ENCOUNTER 2020-10-09 22:12 | Emergency (ER) | payer MEDICARE, MEDICAID ==
--- NOTE | 2020-10-09 22:14 | EDM.PDOC ---
ED HPI GENERAL MEDICAL PROBLEM - General Stated Complaint: SUICIDAL Time Seen by Provider: 10/09/20 22:13 Source of Information: Reports: Patient History Limitations: Reports: No Limitations - History of Present Illness INITIAL COMMENTS - FREE TEXT/NARRATIVE: 29-year-old male history of complex partial seizure, intellectual disability was brought in by EMS feeling anxious and lonely, he voiced vague suicidal ideation to PD but currently denies feeling suicidal. Patient denies fever, chills, headache, chest pain, shortness of breath, abdominal pain, focal numbness or weakness. ROS: A 10-point review of systems, other than pertinent positives and negatives as stated per HPI, is otherwise negative Past medical history: No additional pertinent history Past Surgical history: No additional pertinent history Social history: No additional pertinent history Family history: No additional pertinent history PHYSICAL EXAM General: AOx4, GCS = 15, No distress HEENT: dry mucous membrane Neck: supple, no meningismus, no Kernig or Brudzinski Cardiac: S1S2 tachycardia Respiratory: CTAB, no crackles or rales, no wheezing Abdomen: Soft, nontender, no rebound or guarding, nondistended, no pulsatile mass. Back: nontender Musculoskeletal: NVI distally, no deformity Neuro: No focal deficits Psych: Denies SI, homicidal ideation, hallucinations. - Related Data Allergies Allergy/AdvReac Type Severity Reaction Status Date / Time No Known Allergies Allergy Verified 10/09/20 22:27 Home Meds: Home Meds Docusate Sodium [Colace] 100 mg PO DAILY 01/07/15 [History] Levothyroxine [Synthroid] 88 mcg PO DAILY 01/07/15 [History] Loratadine [Claritin] 10 mg PO DAILY 01/07/15 [History] risperiDONE [Risperdal] 0.5 mg PO DAILY PRN 01/07/15 [History] risperiDONE [Risperdal] 4 mg PO BEDTIME 01/31/16 [History] Multivitamins [Tab-A-Rashard] 1 tab PO DAILY 09/08/17 [History] Prazosin [Minpress] 1 mg PO BEDTIME 09/08/17 [History] DULoxetine [Cymbalta] 60 mg PO BID 05/26/20 [History] Fluticasone Propionate [Flonase] 1 - 2 spray INH DAILY 05/26/20 [History] lamoTRIgine [Lamictal] 400 mg PO QAM 05/26/20 [History] lamoTRIgine [Lamictal] 600 mg PO BEDTIME 05/26/20 [History] risperiDONE Microspheres [Risperdal Consta] 50 mg IM ASDIRECTED 05/26/20 [History] Sulfamethoxazole/Trimethoprim [Bactrim Ds Tablet] 2 each PO BID #40 tablet 07/20/20 [Rx] cephALEXin [Keflex] 500 mg PO Q8H #30 cap 07/20/20 [Rx] Past Medical History HEENT History: Reports: Allergic Rhinitis Other HEENT History: left eye lid is saggy since , causing a small amount of vision loss. 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 Psychiatric History: Reports: ADD, Suicidal Ideation, Other (See Below) Other Psychiatric History: impulse control disorder; elements of atypical pervasive development disorder; duglas-abuse Endocrine/Metabolic History: Reports: Hypothyroidism, Obesity/BMI 30+, Other (See Below) Other Endocrine/Metabolic History: Thyroid imbalance Hematologic History: Reports: None Immunologic History: Reports: None Oncologic (Cancer) History: Reports: None Dermatologic History: Reports: None - Infectious Disease History Infectious Disease History: Reports: None - Past Surgical History Head Surgeries/Procedures: Reports: None HEENT Surgical History: Reports: None Cardiovascular Surgical History: Reports: None Respiratory Surgical History: Reports: None GI Surgical History: Reports: Colonoscopy Male Surgical History: Reports: None Endocrine Surgical History: Reports: None Neurological Surgical History: Reports: None Musculoskeletal Surgical History: Reports: None Other Musculoskeletal Surgeries/Procedures:: fracture left foot Oncologic Surgical History: Reports: None Dermatological Surgical History: Reports: None Social & Family History - Family History Family Medical History: No Pertinent Family History - Caffeine Use Caffeine Use: Reports: Coffee ED ROS GENERAL - Review of Systems Review Of Systems: See Below (see dictation) ED EXAM, GENERAL - Physical Exam Exam: See Below (see dictation) #1 Interpretation EKG Interpretation Comments: Heart rate = 110 bpm, sinus tachycardia, RBBB normal QRS interval, no STEMI. EKG and rhythm strip interpreted by me at 1022 Course - Vital Signs Last Recorded V/S: Last Vital Signs Temp 97.1 F 10/09/20 22:13 Pulse 117 H 10/09/20 22:13 Resp 17 10/09/20 22:13 BP 125/76 10/09/20 22:13 Pulse Ox 95 10/09/20 22:13 - Orders/Labs/Meds Orders: Active Orders 24 hr Category Date Time Status EKG Documentation Completion [RC] STAT Care 10/09/20 22:14 Active Labs: Laboratory Tests 10/09/20 10/09/20 10/09/20 Range/Units 20:30 20:30 22:35 WBC 11.28 H (4.0-11.0) K/uL RBC 5.56 (4.50-5.90) M/uL Hgb 17.6 H (13.0-17.0) g/dL Hct 50.4 H (38.0-50.0) % MCV 90.6 (80.0-98.0) fL MCH 31.7 (27.0-32.0) pg MCHC 34.9 (31.0-37.0) g/dL RDW Std Deviation 47.7 (28.0-62.0) fl RDW Coeff of Saskia 14 (11.0-15.0) % Plt Count 166 (150-400) K/uL MPV 9.20 (7.40-12.00) fL Neut % (Auto) 62.1 (48.0-80.0) % Lymph % (Auto) 28.1 (16.0-40.0) % [place] % (Auto) 9.7 (0.0-15.0) % Eos % (Auto) 0.0 (0.0-7.0) % Baso % (Auto) 0.1 (0.0-1.5) % Neut # (Auto) 7.0 H (1.4-5.7) K/uL Lymph # (Auto) 3.2 H (0.6-2.4) K/uL [place] # (Auto) 1.1 H (0.0-0.8) K/uL Eos # (Auto) 0.0 (0.0-0.7) K/uL Baso # (Auto) 0.0 (0.0-0.1) K/uL Nucleated RBC % 0.0 /100WBC Nucleated RBCs # 0 K/uL Sodium (136-148) mmol/L Potassium (3.5-5.1) mmol/L Chloride (98-107) mmol/L Carbon Dioxide (21.0-32.0) mmol/L BUN (7.0-18.0) mg/dL Creatinine (0.8-1.3) mg/dL Est Cr Clr Drug Dosing Estimated GFR (MDRD) ml/min Glucose (74-106) mg/dL Calcium (8.5-10.1) mg/dL Magnesium (1.8-2.4) mg/dL Total Bilirubin (0.2-1.0) mg/dL AST (15-37) IU/L ALT (14-63) IU/L Alkaline Phosphatase (46-116) U/L Total Protein (6.4-8.2) g/dL Albumin (3.4-5.0) g/dL Globulin (2.6-4.0) g/dL Albumin/Globulin Ratio (0.9-1.6) TSH 3rd Generation (0.36-3.74) uIU/mL Urine Color YELLOW Urine Appearance CLEAR Urine pH 5.5 (5.0-8.0) Ur Specific [place] 1.010 (1.001-1.035) Urine Protein NEGATIVE (NEGATIVE) mg/dL Urine Glucose (UA) NEGATIVE (NEGATIVE) mg/dL Urine Ketones NEGATIVE (NEGATIVE) mg/dL Urine Occult Blood NEGATIVE (NEGATIVE) Urine Nitrite NEGATIVE (NEGATIVE) Urine Bilirubin NEGATIVE (NEGATIVE) Urine Urobilinogen 0.2 (<2.0) EU/dL Ur Leukocyte Esterase NEGATIVE (NEGATIVE) Urine RBC NONE SEEN (0-2/HPF) Urine WBC 0-1 (0-5/HPF) Ur Epithelial Cells RARE (NONE-FEW) Urine Bacteria RARE (NEGATIVE) Urine Mucus LIGHT (NONE-MOD) Salicylates (0-20) mg/dL Urine Opiates Screen NEGATIVE (NEGATIVE) Ur Oxycodone Screen NEGATIVE (NEGATIVE) Urine Methadone Screen NEGATIVE (NEGATIVE) Acetaminophen ug/mL Ur Barbiturates Screen NEGATIVE (NEGATIVE) Ur Phencyclidine Scrn NEGATIVE (NEGATIVE) Ur Amphetamine Screen NEGATIVE (NEGATIVE) U Methamphetamines Scrn NEGATIVE (NEGATIVE) U Benzodiazepines Scrn NEGATIVE (NEGATIVE) U Cocaine Metab Screen NEGATIVE (NEGATIVE) U Marijuana (THC) Screen NEGATIVE (NEGATIVE) Ethyl Alcohol mg/dL 10/09/20 Range/Units 22:35 WBC (4.0-11.0) K/uL RBC (4.50-5.90) M/uL Hgb (13.0-17.0) g/dL Hct (38.0-50.0) % MCV (80.0-98.0) fL MCH (27.0-32.0) pg MCHC (31.0-37.0) g/dL RDW Std Deviation (28.0-62.0) fl RDW Coeff of Saskia (11.0-15.0) % Plt Count (150-400) K/uL MPV (7.40-12.00) fL Neut % (Auto) (48.0-80.0) % Lymph % (Auto) (16.0-40.0) % [place] % (Auto) (0.0-15.0) % Eos % (Auto) (0.0-7.0) % Baso % (Auto) (0.0-1.5) % Neut # (Auto) (1.4-5.7) K/uL Lymph # (Auto) (0.6-2.4) K/uL [place] # (Auto) (0.0-0.8) K/uL Eos # (Auto) (0.0-0.7) K/uL Baso # (Auto) (0.0-0.1) K/uL Nucleated RBC % /100WBC Nucleated RBCs # K/uL Sodium 141 (136-148) mmol/L Potassium 3.7 (3.5-5.1) mmol/L Chloride 102 (98-107) mmol/L Carbon Dioxide 27.2 (21.0-32.0) mmol/L BUN 15 (7.0-18.0) mg/dL Creatinine 1.1 (0.8-1.3) mg/dL Est Cr Clr Drug Dosing TNP Estimated GFR (MDRD) > 60.0 ml/min Glucose 123 H (74-106) mg/dL Calcium 9.1 (8.5-10.1) mg/dL Magnesium 2.1 (1.8-2.4) mg/dL Total Bilirubin 0.5 (0.2-1.0) mg/dL AST 25 (15-37) IU/L ALT 37 (14-63) IU/L Alkaline Phosphatase 109 (46-116) U/L Total Protein 7.4 (6.4-8.2) g/dL Albumin 4.6 (3.4-5.0) g/dL Globulin 2.8 (2.6-4.0) g/dL Albumin/Globulin Ratio 1.6 (0.9-1.6) TSH 3rd Generation 4.62 H (0.36-3.74) uIU/mL Urine Color Urine Appearance Urine pH (5.0-8.0) Ur Specific [place] (1.001-1.035) Urine Protein (NEGATIVE) mg/dL Urine Glucose (UA) (NEGATIVE) mg/dL Urine Ketones (NEGATIVE) mg/dL Urine Occult Blood (NEGATIVE) Urine Nitrite (NEGATIVE) Urine Bilirubin (NEGATIVE) Urine Urobilinogen (<2.0) EU/dL Ur Leukocyte Esterase (NEGATIVE) Urine RBC (0-2/HPF) Urine WBC (0-5/HPF) Ur Epithelial Cells (NONE-FEW) Urine Bacteria (NEGATIVE) Urine Mucus (NONE-MOD) Salicylates 2.9 (0-20) mg/dL Urine Opiates Screen (NEGATIVE) Ur Oxycodone Screen (NEGATIVE) Urine Methadone Screen (NEGATIVE) Acetaminophen <2.0 ug/mL Ur Barbiturates Screen (NEGATIVE) Ur Phencyclidine Scrn (NEGATIVE) Ur Amphetamine Screen (NEGATIVE) U Methamphetamines Scrn (NEGATIVE) U Benzodiazepines Scrn (NEGATIVE) U Cocaine Metab Screen (NEGATIVE) U Marijuana (THC) Screen (NEGATIVE) Ethyl Alcohol 5 mg/dL - Re-Assessments/Exams Free Text/Narrative Re-Assessment/Exam: 02/08/21 23:20 After observation in the ER, the patient improved and is currently stable for discharge. I performed a repeat exam and did not appreciate new abnormal findings. He denies feeling suicidal now, no homicidal ideation or hallucinations. He exhibits normal vital signs and has a normal gait on road test. I advised the patient to return to the ER for reevaluation if symptoms worsened, including fever, worsening pain, or any other worrisome symptoms. I instructed the patient to follow up with their PCP within 2-3 days. MEDICAL DECISION MAKING: I reviewed the patients past medical records, lab and radiographic findings. I discussed the case with the patient. My differential diagnosis included: Electrolyte abnormality, suicidal ideation. Patient rested in the ED and felt much improved, no suicidal ideation upon reexamination. He wants to go home. Departure - Departure Time of Disposition: 23:20 Disposition: Home, Self-Care 01 Condition: Good Clinical Impression: Intellectual disability, Depressive disorder - Discharge Information *PRESCRIPTION DRUG MONITORING PROGRAM REVIEWED*: Not Applicable *COPY OF PRESCRIPTION DRUG MONITORING REPORT IN PATIENT JOVAN: Not Applicable Instructions: Living With Depression, Intellectual Disability Forms: ED Department Discharge Additional Instructions: The need for follow-up, as well as the timing and circumstances, are variable depending upon the specifics of your emergency department visit. If you don't have a primary care physician on staff, we will provide you with a referral. We always advise you to contact your personal physician following an emergency department visit to inform them of the circumstance of the visit and for follow-up with them and/or the need for any referrals to a consulting specialist. The emergency department will also refer you to a specialist when appropriate. This referral assures that you have the opportunity for follow-up care with a specialist. All of these measure are taken in an effort to provide you with optimal care, which includes your follow-up. Under all circumstances we always encourage you to contact your private physician who remains a resource for coordinating your care. When calling for follow-up care, please make the office aware that this follow-up is from your recent emergency room visit. If for any reason you are refused follow-up, please contact the [facility] Emergency Department at and asked to speak to the emergency department charge nurse. If you do not have a primary care doctor, please follow up with the clinics below within 3-5 days. [facility] [address] [place] [id number] [facility] [address] [place] [id number] Sepsis Event Note (ED) - Focused Exam Vital Signs: Vital Signs Temp Pulse Resp BP Pulse Ox 10/09/20 22:13 97.1 F 117 H 17 125/76 95 - My Orders Last 24 Hours: My Active Orders 10/09/20 22:14 EKG Documentation Completion [RC] STAT - Assessment/Plan Last 24 Hours: My Active Orders 10/09/20 22:14 EKG Documentation Completion [RC] STAT
[2020-10-09 23:15] LABS: ACETAMINOPHEN <2.0 ug/mL; BLOOD UREA NITROGEN,BUN 15 mg/dL (7.0-18.0); CARBON DIOXIDE,CO2 27.2 mmol/L (21.0-32.0); CHLORIDE,CL 102 mmol/L (98-107); GLUCOSE RANDOM 123 mg/dL (74-106); POTASSIUM,K 3.7 mmol/L (3.5-5.1); SODIUM,NA 141 mmol/L (136-148)
[2020-10-09 23:37] VITALS: BP 115/78; PULSE 98
== END 2020-10-09 23:35 | disposition home or self-care (01) ==
LOC: MW.ED 22:12
DX: F32.9 Major depressive disorder, single episode, unspecified (principal); F79 Unspecified intellectual disabilities; R56.9 Unspecified convulsions; E03.9 Hypothyroidism, unspecified; Z79.899 Other long term (current) drug therapy
CPT/HCPCS: 36415; 80053; 80143; 80179; 80305-QW; 80307; 81001; 83735; 84443; 85025; 93005; 93010; 99284; 99284-25

== ENCOUNTER 2021-02-22 23:18 | Emergency (ER) | payer MEDICARE, MEDICAID ==
--- NOTE | 2021-02-23 00:01 | EDM.PDOC ---
ED HPI GENERAL MEDICAL PROBLEM - General Chief Complaint: Behavioral/Psych Stated Complaint: SUICIDAL Time Seen by Provider: 02/22/21 23:35 - History of Present Illness INITIAL COMMENTS - FREE TEXT/NARRATIVE: History of present illness: [] Patient called the suicide line because the lining had available. He needed someone to talk to. His neighbors got him to sleep. He felt like he could not sleep without talking to somebody. He denies any intent to harm himself or anyone else. He has no psychotic features. The patient says after having talk to me and the can dragger who is here with him that he feels like his melatonin is kick in and he could go to sleep. He agreed to go to [facility] tomorrow and said he has a good experience with them and has people there that he trusts. Review of systems: As per history of present illness and below otherwise all systems reviewed and negative. Past medical history: As per history of present illness and as reviewed below otherwise noncontributory. Surgical history: As per history of present illness and as reviewed below otherwise noncontributory. Social history: No reported history of drug or alcohol abuse. Family history: As per history of present illness and as reviewed below otherwise noncontributory. Physical exam: Constitutional - well developed, well-nourished and in no acute distress HEENT - normocephalic, no evidence of trauma - external nose and mouth normal - no mass in neck and no JVD - mucosae moist EYES - full EOM, PERRL, no icterus - no evidence of inflammation, injection, or drainage Respiratory - no respiratory distress, equal bilateral expansion, lungs clear to auscultation and no abnormal lung sounds Cardiovascular - Regular Rhythm with S1 and S2 appreciated and no murmur, gallop or rub. GI - abdomen soft without distension or organomegaly - normal bowel sounds - no guard or rebound Musculoskeletal no gross deformity of long bones or joints - no tenderness, swelling or edema Neurologic - Alert and oriented times four - CN II-XII grossly intact - motor sensory and coordination symmetrically normal Psychiatric - appropriate mood and affect with normal thought content Hematologic - No petechiae or purpura - mucosa appropriate color and sclera not pale - normal nail bed color and refill Integument - no rash or evidence of trauma - normal turgor Diagnostics: [] Therapeutics: [] Impression: [] Plan: [] Definitive disposition and diagnosis as appropriate pending reevaluation and review of above. - Related Data Allergies Allergy/AdvReac Type Severity Reaction Status Date / Time No Known Allergies Allergy Verified 02/22/21 23:39 Home Meds: Home Meds Docusate Sodium [Colace] 100 mg PO DAILY 01/07/15 [History] Levothyroxine [Synthroid] 88 mcg PO DAILY 01/07/15 [History] Loratadine [Claritin] 10 mg PO DAILY 01/07/15 [History] risperiDONE [Risperdal] 0.5 mg PO DAILY PRN 01/07/15 [History] risperiDONE [Risperdal] 4 mg PO BEDTIME 01/31/16 [History] Multivitamins [Tab-A-Rashard] 1 tab PO DAILY 09/08/17 [History] Prazosin [Minpress] 1 mg PO BEDTIME 09/08/17 [History] DULoxetine [Cymbalta] 60 mg PO BID 05/26/20 [History] Fluticasone Propionate [Flonase] 1 - 2 spray INH DAILY 05/26/20 [History] lamoTRIgine [Lamictal] 400 mg PO QAM 05/26/20 [History] lamoTRIgine [Lamictal] 600 mg PO BEDTIME 05/26/20 [History] risperiDONE Microspheres [Risperdal Consta] 50 mg IM ASDIRECTED 05/26/20 [History] Sulfamethoxazole/Trimethoprim [Bactrim Ds Tablet] 2 each PO BID #40 tablet 07/20/20 [Rx] cephALEXin [Keflex] 500 mg PO Q8H #30 cap 07/20/20 [Rx] Past Medical History HEENT History: Reports: Allergic Rhinitis Other HEENT History: left eye lid is saggy since , causing a small amount of vision loss. 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 Psychiatric History: Reports: ADD, Suicidal Ideation, Other (See Below) Other Psychiatric History: impulse control disorder; elements of atypical pervasive development disorder; self-abuse Endocrine/Metabolic History: Reports: Hypothyroidism, Obesity/BMI 30+, Other (See Below) Other Endocrine/Metabolic History: Thyroid imbalance Hematologic History: Reports: None Immunologic History: Reports: None Oncologic (Cancer) History: Reports: None Dermatologic History: Reports: None - Infectious Disease History Infectious Disease History: Reports: None - Past Surgical History Head Surgeries/Procedures: Reports: None HEENT Surgical History: Reports: None Cardiovascular Surgical History: Reports: None Respiratory Surgical History: Reports: None GI Surgical History: Reports: Colonoscopy Male Surgical History: Reports: None Endocrine Surgical History: Reports: None Neurological Surgical History: Reports: None Musculoskeletal Surgical History: Reports: None Other Musculoskeletal Surgeries/Procedures:: fracture left foot Oncologic Surgical History: Reports: None Dermatological Surgical History: Reports: None Social & Family History - Family History Family Medical History: No Pertinent Family History - Tobacco Use Tobacco Use Status *Q: Never Tobacco User Second Hand Smoke Exposure: No - Caffeine Use Caffeine Use: Reports: None - Recreational Drug Use Recreational Drug Use: No ED ROS GENERAL - Review of Systems Review Of Systems: Comprehensive ROS is negative, except as noted in HPI. ED EXAM, GENERAL - Physical Exam Exam: See Below Course - Vital Signs Last Recorded V/S: Last Vital Signs Temp 36.6 C 02/22/21 23:32 Pulse 93 02/22/21 23:32 Resp 18 02/22/21 23:32 BP 118/74 02/22/21 23:32 Pulse Ox 97 02/22/21 23:32 Departure - Departure Time of Disposition: 00:00 Disposition: Home, Self-Care 01 Condition: Good Clinical Impression: Anxiety - Discharge Information Instructions: Supporting Someone With Anxiety, Managing Anxiety, Adult Forms: ED Department Discharge Additional Instructions: If it anytime you want to talk you can call us or return. [facility] has the kind of people that are really experienced it listening to people of emotional issues. [facility] Address: [address] [place] [address] [place] [address] Hours: walk in 9 AM M-F The following information is given to patients seen in the emergency department who are being discharged to home. This information is to outline your options for follow-up care. We provide all patients seen in our emergency department with a follow-up referral. The need for follow-up, as well as the timing and circumstances, are variable depending upon the specifics of your emergency department visit. If you don't have a primary care physician on staff, we will provide you with a referral. We always advise you to contact your personal physician following an emergency department visit to inform them of the circumstance of the visit and for follow-up with them and/or the need for any referrals to a consulting specialist. The emergency department will also refer you to a specialist when appropriate. This referral assures that you have the opportunity for follow-up care with a specialist. All of these measure are taken in an effort to provide you with optimal care, which includes your follow-up. Under all circumstances we always encourage you to contact your private physician who remains a resource for coordinating your care. When calling for follow-up care, please make the office aware that this follow-up is from your recent emergency room visit. If for any reason you are refused follow-up, please contact the [facility] Emergency Department at and asked to speak to the emergency department marika nurse. Sepsis Event Note (ED) - Evaluation Sepsis Screening Result: No Definite Risk - Focused Exam Vital Signs: Vital Signs Temp Pulse Resp BP Pulse Ox 02/22/21 23:32 36.6 C 93 18 118/74 97
[2021-02-23 00:24] VITALS: BP 118/77; PULSE 84
== END 2021-02-23 00:18 | disposition home or self-care (01) ==
LOC: MW.ED 23:18
DX: F41.9 Anxiety disorder, unspecified (principal)
CPT/HCPCS: 99283

== ENCOUNTER 2021-04-02 18:53 | Emergency (ER) | payer MEDICARE, MEDICAID ==
--- NOTE | 2021-04-02 19:35 | PCM.EKG ---
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 The EKG is unchanged from his prior in October 2020 and is not felt to represent acute i schemia.
[2021-04-02 20:03] LABS: BLOOD UREA NITROGEN,BUN 13 mg/dL (7.0-18.0); CHLORIDE,CL 103 mmol/L (98-107); GLUCOSE RANDOM 116 mg/dL (74-106); LIPASE 66 U/L (73-393); POTASSIUM,K 4.2 mmol/L (3.5-5.1); SODIUM,NA 141 mmol/L (136-148)
[2021-04-02] MEDS ORDERED: Iopamidol 755 Mg/ML 100 ML Bottle IVPUSH ONE (20:21)
--- NOTE | 2021-04-02 20:50 | CR ---
INDICATION: Chest Pain TECHNIQUE: Chest 1 view. COMPARISON: 08/22/2019 FINDINGS: Cardiovascular and mediastinum: Heart size and vasculature are normal in caliber and appearance. Mediastinum is within normal limits. Lungs and pleural space: Lungs are hypoinflated. Lungs are clear. No pleural effusion. No pneumothorax. Bones and soft tissues: No acute findings. Healed fracture of the left clavicle. IMPRESSION: No acute pulmonary process. Dictated by Pepito Patrick MD @ 04/02/2021 8:49:[address] Pepito Patrick @ Apr 02 2021 8:49PM
--- NOTE | 2021-04-02 21:16 | EDM.PDOC ---
ED HPI GENERAL MEDICAL PROBLEM - General Chief Complaint: Chest Pain Stated Complaint: CHEST PAIN, ABDOMINAL PAIN Time Seen by Provider: 04/02/21 19:25 Source of Information: Reports: Patient History Limitations: Reports: No Limitations - History of Present Illness INITIAL COMMENTS - FREE TEXT/NARRATIVE: HISTORY AND PHYSICAL: History of present illness: Patient is a 30-year-old male who presents emergency room today with [employer] member/director family with concern of lower abdominal pain/chest pain that began at about 630 this evening. Patient states he was laying on the couch watching TV when he started feeling chest pain and abdominal pain. Patient does have a history of intellectual disability and HPI is limited due to this. Patient states that he had a hot dog and some lemonade for dinner and states that he did have a coughing episode after swallowing "lemonade down the wrong tube ". Patient states after dinner, he went out and had a cigarette and states he came and laid on the couch. Patient states approximately 20 to 30 minutes after that, he began developing abdominal/chest pain and it has continued and still has this in the emergency room. Patient states right now his abdominal pain is more prominent but states that prior was his chest pain. Patient denies any other symptoms or concerns. Patient denies fever, chills, shortness of breath, or cough. Denies headache, neck stiff ness, change in vision, syncope, or near syncope. Denies nausea, vomiting, diarrhea, constipation, or dysuria. Has not noted any blood in urine or stool. Patient has been eating and drinking appropriately. Review of systems: As per history of present illness and below otherwise all systems reviewed and negative. Past medical history: As per history of present illness and as reviewed below otherwise noncontributory. Surgical history: As per history of present illness and as reviewed below otherwise noncontributory. Social history: See social history for further information Family history: As per history of present illness and as reviewed below otherwise noncontributory. Physical exam: General: Patient is alert, oriented, and in no acute distress. Patient sitting comfortably on exam table. Vitals stable and reviewed by me. HEENT: Atraumatic, normocephalic, pupils equal and reactive bilaterally, negative for conjunctival pallor or scleral icterus, mucous membranes moist, TMs normal bilaterally, throat clear, neck supple, nontender, trachea midline. No drooling or trismus noted. No meningeal signs. No hot potato voice noted. Lungs: Clear to auscultation, breath sounds equal bilaterally, chest nontender. Heart: S1S2, regular rate and rhythm without overt murmur Abdomen: Soft, nondistended, mild LLQ/RLQ tenderness without guarding, negative rebound/stahl. Negative for masses or hepatosplenomegaly. Negative for costovertebral tenderness. Pelvis: Stable nontender. Genitourinary: Deferred. Rectal: Deferred. Skin: Intact, warm, dry. No lesions or rashes noted. Extremities: Atraumatic, negative for cords or calf pain. Neurovascular unremarkable. Neuro: Awake, alert, oriented. Cranial nerves II through XII unremarkable. Cerebellum unremarkable. Motor and sensory unremarkable throughout. Exam nonfocal. Notes: Patient is a 30-year-old male, with a history of intellectual disability with [employer] [facility], who presents emergency room today with concern of abdominal and chest pain that started at about 630 this evening. Upon arrival to the ED, patient is vitally stable and well-appearing on exam. Patient does have some mild left lower and right lower quadrant tenderness on exam without guarding or rebound. Will obtain cardiac evaluation, provide a dose of Toradol, and reassess patient. See Dr. Brown's dictation for specific EKG interpretation. CBC shows a mild leukocytosis of 12.74, otherwise mild derangements of CBC unremarkable. CMP shows a mild elevation in glucose at 116. Troponin is negative. Lipase within normal limits. Otherwise CMP unremarkable. Urinalysis is clear of infection. Alejandro pelvic CT scan with contrast shows no acute abnormality in the abdomen or pelvis. Colonic diverticulosis. Hepatomegaly with steatosis. Chest x-ray shows no acute cardiopulmonary process. Upon reevaluation of patient, remains vitally stable and has improvement of his symptoms with therapeutics given today in the ED. Strict return precautions thoroughly discussed with patient and [employer] [facility] caregiver. Discussed the importance for follow-up with a primary care provider. Voices understanding and is agreeable to plan of care. Denies any further questions or concerns at this time. Diagnostics: EKG, CBC, CMP, UA, CXR, Trop, lipase, abd/pelvic ct w cont Therapeutics: Toradol Prescription: None Impression: Lower abdominal pain, unspecified Atypical chest pain Plan: 1. You can alternate ibuprofen and Tylenol as directed for pain and discomfort. 2. Follow-up with primary care provider as discussed. Return to the ED as needed and as discussed. Definitive disposition and diagnosis as appropriate pending reevaluation and review of above. abdomen, epigastric Pain Score (Numeric/FACES): 10 - Related Data Allergies Allergy/AdvReac Type Severity Reaction Status Date / Time No Known Allergies Allergy Verified 04/02/21 19:24 Home Meds: Home Meds Docusate Sodium [Colace] 100 mg PO DAILY 01/07/15 [History] Levothyroxine [Synthroid] 88 mcg PO DAILY 01/07/15 [History] Loratadine [Claritin] 10 mg PO DAILY 01/07/15 [History] risperiDONE [Risperdal] 0.5 mg PO DAILY PRN 01/07/15 [History] risperiDONE [Risperdal] 4 mg PO BEDTIME 01/31/16 [History] Multivitamins [Tab-A-Rashard] 1 tab PO DAILY 09/08/17 [History] Prazosin [Minpress] 1 mg PO BEDTIME 09/08/17 [History] DULoxetine [Cymbalta] 60 mg PO BID 05/26/20 [History] Fluticasone Propionate [Flonase] 1 - 2 spray INH DAILY 05/26/20 [History] lamoTRIgine [Lamictal] 400 mg PO QAM 05/26/20 [History] lamoTRIgine [Lamictal] 600 mg PO BEDTIME 05/26/20 [History] risperiDONE Microspheres [Risperdal Consta] 50 mg IM ASDIRECTED 05/26/20 [History] Sulfamethoxazole/Trimethoprim [Bactrim Ds Tablet] 2 each PO BID #40 tablet 07/20/20 [Rx] cephALEXin [Keflex] 500 mg PO Q8H #30 cap 07/20/20 [Rx] Past Medical History HEENT History: Reports: Allergic Rhinitis Other HEENT History: left eye lid is saggy since , causing a small amount of vision loss. 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 Psychiatric History: Reports: ADD, Suicidal Ideation, Other (See Below) Other Psychiatric History: impulse control disorder; elements of atypical pervasive development disorder; self-abuse Endocrine/Metabolic History: Reports: Hypothyroidism, Obesity/BMI 30+, Other (See Below) Other Endocrine/Metabolic History: Thyroid imbalance Hematologic History: Reports: None Immunologic History: Reports: None Oncologic (Cancer) History: Reports: None Dermatologic History: Reports: None - Infectious Disease History Infectious Disease History: Reports: None - Past Surgical History Head Surgeries/Procedures: Reports: None HEENT Surgical History: Reports: None Cardiovascular Surgical History: Reports: None Respiratory Surgical History: Reports: None GI Surgical History: Reports: Colonoscopy Male Surgical History: Reports: None Endocrine Surgical History: Reports: None Neurological Surgical History: Reports: None Musculoskeletal Surgical History: Reports: None Other Musculoskeletal Surgeries/Procedures:: fracture left foot Oncologic Surgical History: Reports: None Dermatological Surgical History: Reports: None Social & Family History - Family History Family Medical History: No Pertinent Family History - Tobacco Use Tobacco Use Status *Q: Current Every Day Tobacco User Years of Tobacco use: 10 Packs/Tins Daily: 1 - Caffeine Use Caffeine Use: Reports: None - Recreational Drug Use Recreational Drug Use: No ED ROS GENERAL - Review of Systems Review Of Systems: Comprehensive ROS is negative, except as noted in HPI. ED EXAM, GENERAL - Physical Exam Exam: See Below (see dictation) Course - Vital Signs Last Recorded V/S: Last Vital Signs Temp 97 F 04/02/21 19:20 Pulse 88 04/02/21 20:29 Resp 18 04/02/21 20:29 BP 139/80 04/02/21 20:29 Pulse Ox 93 L 04/02/21 20:29 - Orders/Labs/Meds Orders: Active Orders 24 hr Category Date Time Status Cardiac Monitoring [RC] . DIRECTED Care 04/02/21 19:25 Active EKG Documentation Completion [RC] STAT Care 04/02/21 19:25 Active Labs: Laboratory Tests 04/02/21 04/02/21 04/02/21 Range/Units 19:20 19:20 19:41 WBC 12.74 H (4.0-11.0) K/uL RBC 5.30 (4.50-5.90) M/uL Hgb 16.7 (13.0-17.0) g/dL Hct 46.3 (38.0-50.0) % MCV 87.4 (80.0-98.0) fL MCH 31.5 (27.0-32.0) pg MCHC 36.1 (31.0-37.0) g/dL RDW Std Deviation 45.7 (28.0-62.0) fl RDW Coeff of Saskia 14 (11.0-15.0) % Plt Count 176 (150-400) K/uL MPV 9.10 (7.40-12.00) fL Neut % (Auto) 72.1 (48.0-80.0) % Lymph % (Auto) 21.4 (16.0-40.0) % Roberts % (Auto) 6.4 (0.0-15.0) % Eos % (Auto) 0.0 (0.0-7.0) % Baso % (Auto) 0.1 (0.0-1.5) % Neut # (Auto) 9.2 H (1.4-5.7) K/uL Lymph # (Auto) 2.7 H (0.6-2.4) K/uL Roberts # (Auto) 0.8 (0.0-0.8) K/uL Eos # (Auto) 0.0 (0.0-0.7) K/uL Baso # (Auto) 0.0 (0.0-0.1) K/uL Nucleated RBC % 0.0 /100WBC Nucleated RBCs # 0 K/uL Sodium 141 (136-148) mmol/L Potassium 4.2 (3.5-5.1) mmol/L Chloride 103 (98-107) mmol/L Carbon Dioxide 28.0 (21.0-32.0) mmol/L BUN 13 (7.0-18.0) mg/dL Creatinine 1.3 (0.8-1.3) mg/dL Est Cr Clr Drug Dosing 81.85 mL/min Estimated GFR (MDRD) > 60.0 ml/min Glucose 116 H (74-106) mg/dL Calcium 9.1 (8.5-10.1) mg/dL Total Bilirubin 0.4 (0.2-1.0) mg/dL AST 22 (15-37) IU/L ALT 40 (14-63) IU/L Alkaline Phosphatase 95 (46-116) U/L Troponin I < 0.050 (0.000-0.056) ng/mL Total Protein 7.0 (6.4-8.2) g/dL Albumin 4.4 (3.4-5.0) g/dL Globulin 2.6 (2.6-4.0) g/dL Albumin/Globulin Ratio 1.7 H (0.9-1.6) Lipase 66 L (73-393) U/L Urine Color YELLOW Urine Appearance CLEAR Urine pH 6.0 (5.0-8.0) Ur Specific Lilburn >= 1.030 (1.001-1.035) Urine Protein NEGATIVE (NEGATIVE) mg/dL Urine Glucose (UA) NEGATIVE (NEGATIVE) mg/dL Urine Ketones NEGATIVE (NEGATIVE) mg/dL Urine Occult Blood NEGATIVE (NEGATIVE) Urine Nitrite NEGATIVE (NEGATIVE) Urine Bilirubin NEGATIVE (NEGATIVE) Urine Urobilinogen 0.2 (<2.0) EU/dL Ur Leukocyte Esterase NEGATIVE (NEGATIVE) Meds: Medications Discontinued Medications Generic Name Dose Route Start Last Admin Trade Name Freq PRN Reason Stop Dose Admin Iopamidol 100 ml 04/02/21 20:21 04/02/21 20:46 Iopamidol 755 Mg/Ml 100 Ml Bottle IVPUSH 04/02/21 20:22 100 ml ONETIME ONE Administration Ketorolac Tromethamine 30 mg 04/02/21 21:23 04/02/21 21:43 Ketorolac 30 Mg/Ml Sdv IVPUSH 04/02/21 21:24 30 mg ONETIME ONE Administration Departure - Departure Time of Disposition: 22:30 Disposition: Home, Self-Care 01 Clinical Impression: Atypical chest pain Abdominal pain Qualifiers: Abdominal location: lower abdomen, unspecified Qualified Code(s): R10.30 - Lower abdominal pain, unspecified - Discharge Information Instructions: Chest Wall Pain, [id number], Abdominal Pain, Adult, [id number] Referrals: Magan Barr MD [Primary Care Provider] - Forms: ED Department Discharge Additional Instructions: The following information is given to patients seen in the emergency department who are being discharged to home. This information is to outline your options for follow-up care. We provide all patients seen in our emergency department with a follow-up referral. The need for follow-up, as well as the timing and circumstances, are variable depending upon the specifics of your emergency department visit. If you don't have a primary care physician on staff, we will provide you with a referral. We always advise you to contact your personal physician following an emergency department visit to inform them of the circumstance of the visit and for follow-up with them and/or the need for any referrals to a consulting specialist. The emergency department will also refer you to a specialist when appropriate. This referral assures that you have the opportunity for follow-up care with a specialist. All of these measure are taken in an effort to provide you with optimal care, which includes your follow-up. Under all circumstances we always encourage you to contact your private physician who remains a resource for coordinating your care. When calling for follow-up care, please make the office aware that this follow-up is from your recent emergency room visit. If for any reason you are refused follow-up, please contact the Emergency Department at and asked to speak to the emergency department charge nurse. [facility] [address] [place] [address] [place] [address] 1. You can alternate ibuprofen and Tylenol as directed for pain and discomfort. 2. Follow-up with a primary care provider as discussed. Return to the ED as needed and as discussed. Sepsis Event Note (ED) - Evaluation Sepsis Screening Result: No Definite Risk - Focused Exam Vital Signs: Vital Signs Temp Pulse Resp BP Pulse Ox 04/02/21 20:29 88 18 139/80 93 L 04/02/21 19:20 97 F 103 H 18 140/92 H 95 - My Orders Last 24 Hours: My Active Orders 04/02/21 19:25 Cardiac Monitoring [RC] . DIRECTED EKG Documentation Completion [RC] STAT - Assessment/Plan Last 24 Hours: My Active Orders 04/02/21 19:25 Cardiac Monitoring [RC] . DIRECTED EKG Documentation Completion [RC] STAT
[2021-04-02] MEDS ORDERED: Ketorolac 30 MG/ML SDV IVPUSH ONE (21:23)
--- NOTE | 2021-04-02 22:26 | CT ---
INDICATION: Right lower quadrant pain. TECHNIQUE: CT abdomen and pelvis acquired with IV contrast. COMPARISON: None FINDINGS: Lower chest: No acute abnormality. Liver: Enlarged. Diffuse hepatic low attenuation consistent with steatosis. No focal lesion. Spleen: Unremarkable. Pancreas: Unremarkable. Gallbladder and bile ducts: Unremarkable. Adrenal glands: Unremarkable. Kidneys: Unremarkable. GI tract: No small bowel obstruction. There is colonic diverticulosis. No evidence of diverticulitis. The appendix is normal. Vascular structures: No sign of aneurysm. Lymph nodes: Unremarkable. Miscellaneous: No ascites. No free air. Small bilateral fat containing inguinal hernias. Pelvic Organs: Unremarkable. Bones: No acute abnormality. No suspicious bone lesion. Left pars defect at L5. IMPRESSION: 1. No acute abnormality in the abdomen or pelvis. 2. Colonic diverticulosis. 3. Hepatomegaly with steatosis. Dictated by Pepito Patrick MD @ 04/02/2021 10:25:24 PM Please note that all CT scans at this facility use dose modulation, iterative reconstruction, and/or weight-based dosing when appropriate to reduce radiation dose to as low as reasonably achievable. Dictated by: Pepito Patrick MD @ 04/02/2021 22:25:38 (Electronically Signed)
[2021-04-02 22:43] VITALS: BP 124/85; PULSE 80
== END 2021-04-02 22:42 | disposition home or self-care (01) ==
LOC: MW.ED 18:53
DX: R10.32 Left lower quadrant pain (principal); R10.31 Right lower quadrant pain; R07.89 Other chest pain; D72.829 Elevated white blood cell count, unspecified; R56.9 Unspecified convulsions; E03.9 Hypothyroidism, unspecified; E66.9 Obesity, unspecified; Z68.38 Body mass index [BMI] 38.0-38.9, adult; Z72.0 Tobacco use; Z79.899 Other long term (current) drug therapy
CPT/HCPCS: 36415; 71045; 74177; 80053; 81003; 83690; 84484; 85025; 93005; 96374; 99285; J1885; Q9967

== ENCOUNTER 2021-05-06 17:26 | Emergency (ER) | payer MEDICARE, MEDICAID ==
[2021-05-06 18:47] VITALS: BP 128/78; PULSE 88
[2021-05-06] MEDS ORDERED: risperiDONE 0.5 MG Tab PO ONE (20:11)
--- NOTE | 2021-05-06 20:17 | EDM.PDOC ---
ED HPI GENERAL MEDICAL PROBLEM - General Chief Complaint: Behavioral/Psych Stated Complaint: MENTAL HEALTH Time Seen by Provider: 05/06/21 19:21 - History of Present Illness INITIAL COMMENTS - FREE TEXT/NARRATIVE: HISTORY AND PHYSICAL: History of present illness: This a 30-year-old gentleman who presents ER today with the [facility] deputy for evaluation of concern for self-harm. Patient reports that he went to [facility] today by a steak for dinner however on his EBT card did not have money. Patient reports that he had no idea of going to [employer] try to wean enough money to get a steak. Patient reports while he was there he lost $60 gambling and became extremely upset. Patient reports that he threw a glass and threw his phone but did not break it. Patient reports while he was there he called the suicide hotline and told that he was depressed about losing all his money and they dispatched to [facility] to bring him here to the ED. Patient reports that he does not drive and that he went to the [facility] with the [facility] staff. Patient denies any recent fevers, shakes, chills, nausea, vomiting, diarrhea, dysuria, frequency, urgency, chest pain, shortness of breath. Patient denies any history of hypertension, diabetes, liver, lung, kidney problems. Patient reports that he does have a history of partial complex seizure disorder, thyroid disorder, impulse control disorder, attention deficit disorder, depression, atypical pervasive developmental disorder, borderline intellectual function disorder, anxiety. At this time, the patient reports that he feels much better after resting here. Patient reports that he has his risperidone at home and that he would take 0.5 mg to help with symptoms. Patient reports that he lives in a facility where his staff as keys to all his chemicals and all his sharp objects are locked up and it is safe at home. Patient reports at this time he is not having any suicidal ideation. Patient reports that he would prefer to go home and that he has no desire to hurt himself at this time that he feels that he was just upset about losing his money and that he feels much better after coming down with the [facility] staff and in the ED. I have had a long discussion with the patient's trustee of estate is here with him and knows him well. He reports that he feels that the patient will also be safe to go home. Patient reports that at this time he is not suicidal and that he can contract for safety and that he will not harm himself. He reports that he starts having any thoughts about wanting to harm self that he will call the suicide hotline or the [facility] to assist him. Review of systems: As per history of present illness and below otherwise all systems reviewed and negative. Past medical history: As per history of present illness and as reviewed below otherwise noncontributory. Surgical history: As per history of present illness and as reviewed below otherwise noncontributory. Social history: No reported history of drug abuse. Family history: As per history of present illness and as reviewed below otherwise noncontributory. Physical exam: This patient was seen and evaluated during the 2019 SARS-CoV-2 novel coronavirus pandemic period. Community viral transmission is ongoing at time of this encounter and the emergency department is operating under pandemic response procedures. Constitutional: Patient is oriented to person, place, and time. Appears well- developed and well-nourished. No distress. HEENT: Moist mucous membranes Head: Normocephalic and atraumatic Eyes: Right eye exhibits no discharge. Left eye exhibits no discharge. No scleral icterus Neck: Normal range of motion. No tracheal deviation present. Cardiovascular: Normal rate and regular rhythm. Pulmonary: Effort normal, no respiratory distress. Abdominal: No distention Musculoskeletal: Normal range of motion Neurologic: Alert and oriented to person, place and time. Skin: [place], warm and dry. Psychiatric: Normal mood and affect. Behavior is normal. Judgment and thought content normal. No suicidal ideation or homicidal ideation. No auditory visualizations. Nursing note and vital signs have been reviewed Diagnostics: [] Therapeutics: Risperidone 0.5 mg p.o. which is patient's usual dose that is as needed. Assessment and plan: 30-year-old gentleman who brought in today by Sheriff [place]ar secondary to concern about anger and impulse control issues while at the [employer]. At this time, the patient reports that he is not suicidal and has no desire to harm himself. He reports that he feels safe to go home at this time and he can contract for safety. Patient reports that he does have his cell phone and is working on functional and that he has resources to call immediately if he should have any thoughts. He reports that this is what he did earlier today and that he feels very comfortable that if he has any further thoughts that he has access to calling for assistance. I had this discussion with the patient's trustee of estate who is here at bedside and is confirmed that he also feels comfortable with the patient having access and feels comfortable that the patient will call and can be able to safely contract for safety. According to his trustee of estate he will also let the annual greenhouse manager of the facility that he is living at know to keep a close eye on him as well. Reassessment at the time of disposition demonstrates that the patient is in no acute distress. The patient has remained stable throughout the entire ED visit and is without objective evidence for acute process requiring urgent intervention or hospitalization. The patient is stable for discharge, counseling is provided as documented above, discussed symptomatic treatment and specific conditions for return. I have spoken with the patient/caregiver and discussed todays findings, in addition to providing specific details for the plan of care. Questions are answered and there is agreement with the plan. Definitive disposition and diagnosis as appropriate pending reevaluation and review of above. - Related Data Allergies Allergy/AdvReac Type Severity Reaction Status Date / Time No Known Allergies Allergy Verified 04/02/21 19:24 Home Meds: Home Meds Docusate Sodium [Colace] 100 mg PO DAILY 01/07/15 [History] Levothyroxine [Synthroid] 88 mcg PO DAILY 01/07/15 [History] Loratadine [Claritin] 10 mg PO DAILY 01/07/15 [History] risperiDONE [Risperdal] 0.5 mg PO DAILY PRN 01/07/15 [History] risperiDONE [Risperdal] 4 mg PO BEDTIME 01/31/16 [History] Multivitamins [Tab-A-Rashard] 1 tab PO DAILY 09/08/17 [History] Prazosin [Minpress] 1 mg PO BEDTIME 09/08/17 [History] DULoxetine [Cymbalta] 60 mg PO BID 05/26/20 [History] Fluticasone Propionate [Flonase] 1 - 2 spray INH DAILY 05/26/20 [History] lamoTRIgine [Lamictal] 400 mg PO QAM 05/26/20 [History] lamoTRIgine [Lamictal] 600 mg PO BEDTIME 05/26/20 [History] risperiDONE Microspheres [Risperdal Consta] 50 mg IM ASDIRECTED 05/26/20 [History] Sulfamethoxazole/Trimethoprim [Bactrim Ds Tablet] 2 each PO BID #40 tablet 07/20/20 [Rx] cephALEXin [Keflex] 500 mg PO Q8H #30 cap 07/20/20 [Rx] Past Medical History HEENT History: Reports: Allergic Rhinitis Other HEENT History: left eye lid is saggy since , causing a small amount of vision loss. 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 Psychiatric History: Reports: ADD, Suicidal Ideation, Other (See Below) Other Psychiatric History: impulse control disorder; elements of atypical pervasive development disorder; self-abuse Endocrine/Metabolic History: Reports: Hypothyroidism, Obesity/BMI 30+, Other (See Below) Other Endocrine/Metabolic History: Thyroid imbalance Hematologic History: Reports: None Immunologic History: Reports: None Oncologic (Cancer) History: Reports: None Dermatologic History: Reports: None - Infectious Disease History Infectious Disease History: Reports: None - Past Surgical History Head Surgeries/Procedures: Reports: None HEENT Surgical History: Reports: None Cardiovascular Surgical History: Reports: None Respiratory Surgical History: Reports: None GI Surgical History: Reports: Colonoscopy Male Surgical History: Reports: None Endocrine Surgical History: Reports: None Neurological Surgical History: Reports: None Musculoskeletal Surgical History: Reports: None Other Musculoskeletal Surgeries/Procedures:: fracture left foot Oncologic Surgical History: Reports: None Dermatological Surgical History: Reports: None Social & Family History - Family History Family Medical History: No Pertinent Family History - Caffeine Use Caffeine Use: Reports: None ED ROS GENERAL - Review of Systems Review Of Systems: See Below ED EXAM, GENERAL - Physical Exam Exam: See Below Course - Vital Signs Last Recorded V/S: Last Vital Signs Temp 97.8 F 05/06/21 18:40 Pulse 88 05/06/21 18:40 Resp 20 05/06/21 18:40 BP 128/78 05/06/21 18:40 Pulse Ox 95 05/06/21 18:40 - Orders/Labs/Meds Orders: Active Orders 24 hr Category Date Time Status risperiDONE [RisperiDAL] Med 05/06/21 20:11 Once 0.5 mg PO ONETIME ONE Departure - Departure Time of Disposition: 20:16 Disposition: Home, Self-Care 01 Condition: Good Clinical Impression: Impulse control disorder, Passive suicidal ideations - Discharge Information Instructions: Impulse Control Disorders, Suicidal Feelings: How to Help Yourself Referrals: PCP,None [Primary Care Provider] - Additional Instructions: Your seen and evaluated the ER today secondary to episodes of impulse control issues as well as depression. Please [place] going [place] as this will likely lead to anxiety and depression for you. As we discussed, you are able to contract for safety and you will notify the suicide hotline or your staff if you start having any thoughts about wanting to harm yourself. Please go home today and get some rest. You were ready given a dose of Resporal here in the ED so do not take any additional doses before going to bed. Please call your doctor in the morning for reevaluation. The following information is given to patients seen in the emergency department who are being discharged to home. This information is to outline your options for follow-up care. We provide all patients seen in our emergency department with a follow-up referral. The need for follow-up, as well as the timing and circumstances, are variable depending upon the specifics of your emergency department visit. If you don't have a primary care physician on staff, we will provide you with a referral. We always advise you to contact your personal physician following an emergency department visit to inform them of the circumstance of the visit and for follow-up with them and/or the need for any referrals to a consulting specialist. The emergency department will also refer you to a specialist when appropriate. This referral assures that you have the opportunity for follow-up care with a specialist. All of these measure are taken in an effort to provide you with optimal care, which includes your follow-up. Under all circumstances we always encourage you to contact your private physician who remains a resource for coordinating your care. When calling for follow-up care, please make the office aware that this follow-up is from your recent emergency room visit. If for any reason you are refused follow-up, please contact the [facility] Emergency Department at and asked to speak to the emergency department charge nurse. [facility] [address] [place] [id number] [address] Sepsis Event Note (ED) - Focused Exam Vital Signs: Vital Signs Temp Pulse Resp BP Pulse Ox 05/06/21 18:40 97.8 F 88 20 128/78 95 - My Orders Last 24 Hours: My Active Orders 05/06/21 20:11 risperiDONE [RisperiDAL] 0.5 mg PO ONETIME ONE - Assessment/Plan Last 24 Hours: My Active Orders 05/06/21 20:11 risperiDONE [RisperiDAL] 0.5 mg PO ONETIME ONE
== END 2021-05-06 23:05 | disposition home or self-care (01) ==
LOC: MW.ED 17:26
DX: R45.851 Suicidal ideations (principal); F63.9 Impulse disorder, unspecified; E03.9 Hypothyroidism, unspecified; E66.9 Obesity, unspecified; Z68.39 Body mass index [BMI] 39.0-39.9, adult; Z79.899 Other long term (current) drug therapy
CPT/HCPCS: 99284; A9270

== ENCOUNTER 2022-04-29 23:21 | Emergency (ER) | payer MEDICARE, MEDICAID ==
[2022-04-29] MEDS ORDERED: ALPRAZolam 0.5 MG Tab PO STA (23:48)
[2022-04-30 00:26] VITALS: BP 113/76; PULSE 99
== END 2022-04-30 00:10 | disposition home or self-care (01) ==
LOC: MW.ED 23:21
DX: F41.9 Anxiety disorder, unspecified (principal); E03.9 Hypothyroidism, unspecified; E66.9 Obesity, unspecified; Z68.30 Body mass index [BMI] 30.0-30.9, adult; Z79.899 Other long term (current) drug therapy
CPT/HCPCS: 99283; A9270

== ENCOUNTER 2022-12-22 23:42 | Emergency (ER) | payer MEDICARE, MEDICAID ==
[2022-12-22] MEDS ORDERED: Sodium Chloride 0.9% 10 ML Syringe FLUSH PRN (23:49)
[2022-12-22] MEDS ORDERED: Sodium Chloride 0.9% 2.5 ML Syringe FLUSH PRN (23:49)
[2022-12-22] MEDS ORDERED: Ketorolac 30 MG/ML SDV IVPUSH ONE (23:50)
[2022-12-22] MEDS ORDERED: Iopamidol 755 MG/ML 500 ML Multipack Bottle IVPUSH ONE (23:59)
[2022-12-23] MEDS ORDERED: Ondansetron 4 MG/2 ML SDV IVPUSH ONE (00:30)
[2022-12-23 00:47] LABS: CARBON DIOXIDE,CO2 27.2 mmol/L (21.0-32.0); POTASSIUM,K 3.2 mmol/L (3.5-5.1)
[2022-12-23] MEDS: Morphine 4 MG/ML Syringe IVPUSH ONE ×2 (00:50→01:12)
[2022-12-23] MEDS ORDERED: Alum Hydro/Mag Hydro/Simeth XS 15 ML, Lidocaine 2% 5 ML PO ONE ×2 (02:30)
[2022-12-23 04:24] VITALS: BP 128/71; PULSE 94
== END 2022-12-23 04:00 | disposition home or self-care (01) ==
LOC: MW.ED 23:42
DX: K29.70 Gastritis, unspecified, without bleeding (principal); E03.9 Hypothyroidism, unspecified; E66.9 Obesity, unspecified; Z68.35 Body mass index [BMI] 35.0-35.9, adult; Z79.899 Other long term (current) drug therapy
CPT/HCPCS: 36415; 71046; 74177; 80053; 83605; 83690; 84484; 85025; 93005; 96374; 96375; 99285; A9270; J1885; J2405; J3490; Q9967; 93010; 99284; J2270

== ENCOUNTER 2022-12-25 09:26 | Emergency (ER) | payer MEDICARE, MEDICAID ==
[2022-12-25] MEDS ORDERED: Sodium Chloride 0.9% 1,000 ML IV ONE (10:16)
[2022-12-25 10:19] VITALS: BP 119/76; PULSE 84
[2022-12-25 11:22] LABS: ACETAMINOPHEN <2.0 ug/mL; BLOOD UREA NITROGEN,BUN 16 mg/dL (7.0-18.0); CARBON DIOXIDE,CO2 29.6 mmol/L (21.0-32.0); CHLORIDE,CL 103 mmol/L (98-107); GLUCOSE RANDOM 140 mg/dL (74-106); POTASSIUM,K 4.4 mmol/L (3.5-5.1); SODIUM,NA 141 mmol/L (136-148)
[2022-12-25 11:26] LABS: ESTIMATED GFR 93 mL/min (>60)
== END 2022-12-25 13:14 | disposition home or self-care (01) ==
LOC: MW.ED 09:26
DX: R53.83 Other fatigue (principal); E03.9 Hypothyroidism, unspecified; E66.9 Obesity, unspecified; Z68.34 Body mass index [BMI] 34.0-34.9, adult; Z87.891 Personal history of nicotine dependence; Z79.899 Other long term (current) drug therapy
CPT/HCPCS: 36415; 70450; 71045; 71275; 80053; 80143; 80179; 80305; 80307; 81003; 82140; 83605; 84443; 84484; 85025; 86308; 93005; 96360; 99284; J7030

== ENCOUNTER 2023-02-18 10:25 | Emergency (ER) | payer MEDICARE, MEDICAID ==
[2023-02-18] MEDS ORDERED: Sodium Chloride 0.9% 1,000 ML IV ONE (10:47)
[2023-02-18 10:49] LABS: BASOPHILS PERCENT AUTO 0.3 % (0.0-1.5); HEMATOCRIT 44.4 % (38.0-50.0); HEMOGLOBIN 15.8 g/dL (13.0-17.0); LYMPHOCYTES ABSOLUTE AUTO 2.2 K/uL (0.6-2.4); LYMPHOCYTES PERCENT AUTO 29.1 % (16.0-40.0); MEAN CORPUSCULAR HEMOGLOBIN 31.4 pg (27.0-32.0); MEAN CORPUSCULAR HGB CONC 35.6 g/dL (31.0-37.0); MEAN CORPUSCULAR VOLUME 88.3 fL (80.0-98.0); MONOCYTES ABSOLUTE AUTO 0.9 K/uL (0.0-0.8); MONOCYTES PERCENT AUTO 11.6 % (0.0-15.0); NEUTROPHILS ABSOLUTE AUTO 4.5 K/uL (1.4-5.7); NRBC ABSOLUTE 0 K/uL; PLATELET COUNT,PLT 155 K/uL (150-400); RED BLOOD CELL COUNT 5.03 M/uL (4.50-5.90); WHITE BLOOD CELL COUNT,WBC 7.56 K/uL (4.0-11.0)
[2023-02-18 10:59] LABS: LACTIC ACID 1.5 mmol/L (0.4-2.0)
[2023-02-18 11:06] LABS: A/G RATIO 1.6 (0.9-1.6); ALBUMIN 4.2 g/dL (3.4-5.0); BILIRUBIN TOTAL 0.5 mg/dL (0.2-1.0); CALCIUM 8.8 mg/dL (8.5-10.1); CARBON DIOXIDE,CO2 27.2 mmol/L (21.0-32.0); CREATININE 1.3 mg/dL (0.8-1.3); EST CRCL DRUG DOSING (CG) 80.38 mL/min; PROTEIN TOTAL,TP 6.9 g/dL (6.4-8.2)
[2023-02-18 11:42] LABS: APPEARANCE,URINE CLEAR; BILIRUBIN,URINE NEGATIVE (NEGATIVE); COLOR,URINE YELLOW; GLUCOSE,URINE NEGATIVE (NEGATIVE); KETONES,URINE NEGATIVE (NEGATIVE); LEUKOCYTE ESTERASE,URINE NEGATIVE (NEGATIVE); NITRITE,URINE NEGATIVE (NEGATIVE); OCCULT BLOOD,URINE NEGATIVE (NEGATIVE); PH,URINE 6.5 (5.0-8.0); PROTEIN,URINE NEGATIVE (NEGATIVE); UROBILINOGEN,URINE 0.2 EU/dL (<2.0)
[2023-02-18 12:57] VITALS: BP 122/77; PULSE 93
== END 2023-02-18 13:18 | disposition home or self-care (01) ==
LOC: MW.ED 10:25
DX: G40.209 Localization-related (focal) (partial) symptomatic epilepsy and epileptic syndromes with complex partial seizures, not intractable, without status epilepticus (principal); E03.9 Hypothyroidism, unspecified; Z79.899 Other long term (current) drug therapy
CPT/HCPCS: 36415; 70450; 71045; 72125; 72128; 80053; 81003; 83605; 85025; 93005; 96360; 99285; J7030; 93010; 99283

== ENCOUNTER 2023-07-12 17:37 | Emergency (ER) | payer MEDICARE, MEDICAID ==
[2023-07-12] MEDS ORDERED: Ibuprofen 600 MG Tab PO ONE (19:33)
[2023-07-12 19:46] VITALS: BP 124/75; PULSE 94
== END 2023-07-12 19:46 | disposition home or self-care (01) ==
LOC: MW.ED 17:37
DX: S90.31XA Contusion of right foot, initial encounter (principal); E03.9 Hypothyroidism, unspecified; E66.9 Obesity, unspecified; F17.210 Nicotine dependence, cigarettes, uncomplicated; Z79.899 Other long term (current) drug therapy; W22.8XXA Striking against or struck by other objects, initial encounter
CPT/HCPCS: 73600; 73620; 99283; A9270; 99282

== ENCOUNTER 2023-07-12 22:26 | Emergency (ER) | payer MEDICARE, MEDICAID ==
[2023-07-12 23:39] VITALS: BP 118/77; PULSE 93
== END 2023-07-12 23:38 | disposition home or self-care (01) ==
LOC: MW.ED 22:26
DX: F41.9 Anxiety disorder, unspecified (principal); E66.9 Obesity, unspecified; S90.31XA Contusion of right foot, initial encounter; E03.9 Hypothyroidism, unspecified; F17.210 Nicotine dependence, cigarettes, uncomplicated; Z68.31 Body mass index [BMI] 31.0-31.9, adult; W22.8XXA Striking against or struck by other objects, initial encounter; Z79.899 Other long term (current) drug therapy
CPT/HCPCS: 73600; 73620; 99283; A9270; 99282

== ENCOUNTER 2023-08-22 13:06 | Emergency (ER) | payer MEDICARE, MEDICAID ==
[2023-08-22] MEDS ORDERED: Ketorolac 30 MG/ML SDV IVPUSH STA (16:30)
[2023-08-22 16:35] LABS: BASOPHILS ABSOLUTE AUTO 0.03 K/uL (0.00-0.20); BASOPHILS PERCENT AUTO 0.3 % (0.0-1.0); EOSINOPHILS ABSOLUTE AUTO 0.01 K/uL (0.00-0.45); EOSINOPHILS PERCENT AUTO 0.1 % (0.0-6.0); HEMATOCRIT 45.7 % (42.0-52.0); IMMATURE GRAN ABSOLUTE AUTO 0.05 K/uL (0.00-0.05); IMMATURE GRAN PERCENT AUTO 0.5 % (0.0-0.4); LYMPHOCYTES ABSOLUTE AUTO 2.43 K/uL (1.00-4.80); LYMPHOCYTES PERCENT AUTO 26.5 % (24.0-44.0); MEAN CORPUSCULAR HEMOGLOBIN 30.5 pg (28.0-32.0); MEAN CORPUSCULAR VOLUME 87.2 fL (83.0-99.0); MEAN PLATELET VOLUME 8.3 fL (9.4-12.4); MONOCYTES ABSOLUTE AUTO 0.67 K/uL (0.00-0.80); MONOCYTES PERCENT AUTO 7.3 % (0.0-8.0); NEUTROPHILS ABSOLUTE AUTO 5.98 K/uL (1.80-7.70); NEUTROPHILS PERCENT AUTO 65.3 % (41.0-71.0); PLATELET COUNT,PLT 160 K/uL (150-400); RED BLOOD CELL COUNT 5.24 M/uL (4.52-5.90); WHITE BLOOD CELL COUNT,WBC 9.17 K/uL (3.9-11.3)
[2023-08-22 16:47] LABS: INR 1.09 (0.86-1.11); PTT,PARTIAL THROMBOPLSTIN TIME 30.4 SEC (23.9-30.7)
[2023-08-22 17:06] LABS: A/G RATIO 1.5 (0.9-1.6); ALBUMIN 4.1 g/dL (3.4-5.0); BILIRUBIN TOTAL 0.6 mg/dL (0.2-1.0); CALCIUM 9.3 mg/dL (8.5-10.1); CARBON DIOXIDE,CO2 30.2 mmol/L (21.0-32.0); CREATININE 1.1 mg/dL (0.8-1.3); EST CRCL DRUG DOSING (CG) 98.19 mL/min; POTASSIUM,K 3.9 mmol/L (3.5-5.1); PROTEIN TOTAL,TP 6.9 g/dL (6.4-8.2)
[2023-08-22] MEDS ORDERED: Iopamidol 755 MG/ML 500 ML Multipack Bottle IVPUSH STA (17:51)
[2023-08-22 19:01] VITALS: BP 122/64; PULSE 69
== END 2023-08-22 19:01 | disposition home or self-care (01) ==
LOC: MW.ED 13:06
DX: S80.12XA Contusion of left lower leg, initial encounter (principal); E03.9 Hypothyroidism, unspecified; E66.9 Obesity, unspecified; Z79.899 Other long term (current) drug therapy; Z68.35 Body mass index [BMI] 35.0-35.9, adult; W01.0XXA Fall on same level from slipping, tripping and stumbling without subsequent striking against object, initial encounter
CPT/HCPCS: 36415; 73562; 73610; 73706; 80053; 85025; 85610; 85730; 96374; 99284; J1885; Q9967

== ENCOUNTER 2023-12-08 08:35 | Inpatient (IN) | payer MEDICARE, MEDICAID ==
[2023-12-08] MEDS: Sodium Chloride 0.9% 2.5 ML Syringe FLUSH PRN (09:06)
[2023-12-08] MEDS: Aspirin 81 MG Tab.Chew PO ONE (09:06)
[2023-12-08] MEDS: Sodium Chloride 0.9% 10 ML Syringe FLUSH PRN (09:06)
[2023-12-08] MEDS: Sodium Chloride 0.9% 1,000 ML IV ONE ×3 (09:08→15:39)
[2023-12-08 09:16] LABS: BASOPHILS ABSOLUTE AUTO 0.03 K/uL (0.00-0.20); BASOPHILS PERCENT AUTO 0.3 % (0.0-1.0); EOSINOPHILS ABSOLUTE AUTO 0.03 K/uL (0.00-0.45); EOSINOPHILS PERCENT AUTO 0.3 % (0.0-6.0); HEMATOCRIT 43.6 % (42.0-52.0); HEMOGLOBIN 15.7 g/dL (14.0-18.0); IMMATURE GRAN ABSOLUTE AUTO 0.07 K/uL (0.00-0.05); IMMATURE GRAN PERCENT AUTO 0.8 % (0.0-0.4); LYMPHOCYTES ABSOLUTE AUTO 2.21 K/uL (1.00-4.80); LYMPHOCYTES PERCENT AUTO 23.7 % (24.0-44.0); MEAN PLATELET VOLUME 8.5 fL (9.4-12.4); MONOCYTES ABSOLUTE AUTO 1.29 K/uL (0.00-0.80); MONOCYTES PERCENT AUTO 13.8 % (0.0-8.0); NEUTROPHILS ABSOLUTE AUTO 5.69 K/uL (1.80-7.70); NEUTROPHILS PERCENT AUTO 61.1 % (41.0-71.0); PH,VENOUS 7.4 (7.31-7.41); RED BLOOD CELL COUNT 5.07 M/uL (4.52-5.90); WHITE BLOOD CELL COUNT,WBC 9.32 K/uL (3.9-11.3)
[2023-12-08 09:32] LABS: CORONAVIRUS COVID-19 NAA NEGATIVE (NEGATIVE); INFLUENZA A NAA POSITIVE (NEGATIVE); INFLUENZA B NAA NEGATIVE (NEGATIVE); RESPIRATORY SYNCYTIAL VIR NAA NEGATIVE (NEGATIVE)
[2023-12-08 09:49] LABS: PLATELET COUNT,PLT 141 K/uL (150-400)
[2023-12-08] MEDS: Albuterol/Ipratropium 3.0-0.5 MG/3 ML Neb Soln NEB ONE ×2 (09:57→10:38)
[2023-12-08 10:07] LABS: A/G RATIO 1.2 (0.9-1.6); ALBUMIN 3.8 g/dL (3.4-5.0); BILIRUBIN TOTAL 0.7 mg/dL (0.2-1.0); CALCIUM 8.2 mg/dL (8.5-10.1); CARBON DIOXIDE,CO2 27.5 mmol/L (21.0-32.0); EST CRCL DRUG DOSING (CG) 107.03 mL/min; POTASSIUM,K 3.8 mmol/L (3.5-5.1); PROTEIN TOTAL,TP 6.9 g/dL (6.4-8.2); TSH ULTRASENSITIVE 2.47 uIU/mL (0.36-3.74)
[2023-12-08] MEDS: methylPREDNISolone Sodium Succinate 125 MG/2 ML SDV IVPUSH ONE (10:34)
[2023-12-08] MEDS: Oseltamivir 75 MG Cap PO ONE (11:08)
[2023-12-08] MEDS ORDERED: Polyethylene Glycol 3350 Powder 17 GM Packet PO PRN (14:44)
[2023-12-08] MEDS: Enoxaparin 40 MG/0.4 ML Syringe SUBCUT SCH (15:39)
[2023-12-08] MEDS: risperiDONE 0.25 MG Tab PO SCH (15:39)
[2023-12-08] MEDS: Albuterol/Ipratropium 3.0-0.5 MG/3 ML Neb Soln NEB PRN (16:04)
[2023-12-08] MEDS ORDERED: Pantoprazole 40 MG in Sodium Chloride 0.9% 10 ML IVPUSH SCH (20:00)
[2023-12-08] MEDS ORDERED: GUANFACINE 2 MG PO SCH (21:00)
[2023-12-08] MEDS: DULoxetine 60 MG Cap PO SCH (21:37)
[2023-12-08] MEDS: lamoTRIgine 100 MG Tab PO SCH (21:37)
[2023-12-08] MEDS: Pantoprazole 40 MG in Sodium Chloride 0.9% 10 ML IVPUSH SCH (21:37)
[2023-12-08] MEDS: Oseltamivir 75 MG Cap PO SCH (21:38)
[2023-12-08] MEDS: risperiDONE 1 MG Tab PO SCH (21:38)
[2023-12-08] MEDS: OXcarbazepine 300 MG Tab PO SCH (23:05)
[2023-12-09 05:53] LABS: BASOPHILS ABSOLUTE AUTO 0.02 K/uL (0.00-0.20); BASOPHILS PERCENT AUTO 0.2 % (0.0-1.0); HEMATOCRIT 42.9 % (42.0-52.0); IMMATURE GRAN ABSOLUTE AUTO 0.04 K/uL (0.00-0.05); IMMATURE GRAN PERCENT AUTO 0.5 % (0.0-0.4); LYMPHOCYTES ABSOLUTE AUTO 1.89 K/uL (1.00-4.80); LYMPHOCYTES PERCENT AUTO 22.5 % (24.0-44.0); MEAN CORPUSCULAR VOLUME 88.6 fL (83.0-99.0); MEAN PLATELET VOLUME 8.9 fL (9.4-12.4); MONOCYTES ABSOLUTE AUTO 0.58 K/uL (0.00-0.80); MONOCYTES PERCENT AUTO 6.9 % (0.0-8.0); NEUTROPHILS ABSOLUTE AUTO 5.87 K/uL (1.80-7.70); NEUTROPHILS PERCENT AUTO 69.9 % (41.0-71.0); PLATELET COUNT,PLT 138 K/uL (150-400); RED BLOOD CELL COUNT 4.84 M/uL (4.52-5.90)
[2023-12-09 06:13] LABS: A/G RATIO 1.1 (0.9-1.6); ALBUMIN 3.4 g/dL (3.4-5.0); BILIRUBIN TOTAL 0.4 mg/dL (0.2-1.0); CALCIUM 8.3 mg/dL (8.5-10.1); CARBON DIOXIDE,CO2 29.3 mmol/L (21.0-32.0); EST CRCL DRUG DOSING (CG) 107.03 mL/min; PROTEIN TOTAL,TP 6.4 g/dL (6.4-8.2)
[2023-12-09] MEDS: Levothyroxine 88 MCG Tab PO SCH (06:20)
[2023-12-09] MEDS: lamoTRIgine 100 MG Tab PO SCH (08:39)
[2023-12-09] MEDS: Escitalopram 10 MG Tab PO SCH (08:39)
[2023-12-09] MEDS: GUANFACINE 2 MG PO SCH (08:40)
[2023-12-09] MEDS: Nicotine 21 MG/24 Hr Patch TRDERM SCH (11:15)
[2023-12-09] MEDS: Ibuprofen 400 MG Tab PO ONE (18:49)
[2023-12-09] MEDS: Pantoprazole 40 MG Tab.CR PO SCH (21:04)
[2023-12-10 06:41] LABS: BASOPHILS ABSOLUTE AUTO 0.01 K/uL (0.00-0.20); BASOPHILS PERCENT AUTO 0.1 % (0.0-1.0); EOSINOPHILS ABSOLUTE AUTO 0.02 K/uL (0.00-0.45); EOSINOPHILS PERCENT AUTO 0.2 % (0.0-6.0); HEMOGLOBIN 14.3 g/dL (14.0-18.0); IMMATURE GRAN ABSOLUTE AUTO 0.04 K/uL (0.00-0.05); IMMATURE GRAN PERCENT AUTO 0.5 % (0.0-0.4); LYMPHOCYTES PERCENT AUTO 28.9 % (24.0-44.0); MEAN CORPUSCULAR HEMOGLOBIN 30.6 pg (28.0-32.0); MEAN CORPUSCULAR HGB CONC 34.9 g/dL (32.0-36.0); MEAN CORPUSCULAR VOLUME 87.8 fL (83.0-99.0); MEAN PLATELET VOLUME 8.5 fL (9.4-12.4); MONOCYTES ABSOLUTE AUTO 0.52 K/uL (0.00-0.80); NEUTROPHILS ABSOLUTE AUTO 5.57 K/uL (1.80-7.70); NEUTROPHILS PERCENT AUTO 64.3 % (41.0-71.0); PLATELET COUNT,PLT 140 K/uL (150-400); RED BLOOD CELL COUNT 4.67 M/uL (4.52-5.90); WHITE BLOOD CELL COUNT,WBC 8.66 K/uL (3.9-11.3)
[2023-12-10 07:11] LABS: A/G RATIO 1.2 (0.9-1.6); ALBUMIN 3.3 g/dL (3.4-5.0); BILIRUBIN TOTAL 0.5 mg/dL (0.2-1.0); CALCIUM 8.5 mg/dL (8.5-10.1); CARBON DIOXIDE,CO2 28.8 mmol/L (21.0-32.0); CREATININE 0.9 mg/dL (0.8-1.3); EST CRCL DRUG DOSING (CG) 118.92 mL/min; POTASSIUM,K 4.3 mmol/L (3.5-5.1)
[2023-12-10] MEDS: predniSONE 20 MG Tab PO ONE (13:58)
[2023-12-11 05:51] LABS: BASOPHILS ABSOLUTE AUTO 0.03 K/uL (0.00-0.20); BASOPHILS PERCENT AUTO 0.3 % (0.0-1.0); EOSINOPHILS ABSOLUTE AUTO 0.01 K/uL (0.00-0.45); EOSINOPHILS PERCENT AUTO 0.1 % (0.0-6.0); HEMOGLOBIN 15.4 g/dL (14.0-18.0); IMMATURE GRAN ABSOLUTE AUTO 0.06 K/uL (0.00-0.05); IMMATURE GRAN PERCENT AUTO 0.6 % (0.0-0.4); LYMPHOCYTES ABSOLUTE AUTO 2.02 K/uL (1.00-4.80); LYMPHOCYTES PERCENT AUTO 19.3 % (24.0-44.0); MEAN CORPUSCULAR HEMOGLOBIN 30.4 pg (28.0-32.0); MEAN CORPUSCULAR VOLUME 86.8 fL (83.0-99.0); MEAN PLATELET VOLUME 8.3 fL (9.4-12.4); MONOCYTES ABSOLUTE AUTO 0.51 K/uL (0.00-0.80); MONOCYTES PERCENT AUTO 4.9 % (0.0-8.0); NEUTROPHILS ABSOLUTE AUTO 7.82 K/uL (1.80-7.70); NEUTROPHILS PERCENT AUTO 74.8 % (41.0-71.0); PLATELET COUNT,PLT 178 K/uL (150-400); RED BLOOD CELL COUNT 5.07 M/uL (4.52-5.90); WHITE BLOOD CELL COUNT,WBC 10.45 K/uL (3.9-11.3)
[2023-12-11 06:10] LABS: A/G RATIO 1.2 (0.9-1.6); ALBUMIN 3.7 g/dL (3.4-5.0); BILIRUBIN TOTAL 0.6 mg/dL (0.2-1.0); CARBON DIOXIDE,CO2 28.3 mmol/L (21.0-32.0); CREATININE 1.1 mg/dL (0.8-1.3); EST CRCL DRUG DOSING (CG) 97.3 mL/min; POTASSIUM,K 4.2 mmol/L (3.5-5.1); PROTEIN TOTAL,TP 6.9 g/dL (6.4-8.2)
[2023-12-11] MEDS: predniSONE 20 MG Tab PO ONE (09:07)
[2023-12-11] MEDS: Acetaminophen 325 MG Tab PO PRN (16:52)
[2023-12-12 05:43] LABS: BASOPHILS ABSOLUTE AUTO 0.04 K/uL (0.00-0.20); BASOPHILS PERCENT AUTO 0.4 % (0.0-1.0); EOSINOPHILS ABSOLUTE AUTO 0.03 K/uL (0.00-0.45); EOSINOPHILS PERCENT AUTO 0.3 % (0.0-6.0); HEMATOCRIT 45.2 % (42.0-52.0); HEMOGLOBIN 15.7 g/dL (14.0-18.0); IMMATURE GRAN ABSOLUTE AUTO 0.09 K/uL (0.00-0.05); IMMATURE GRAN PERCENT AUTO 0.8 % (0.0-0.4); LYMPHOCYTES ABSOLUTE AUTO 3.34 K/uL (1.00-4.80); LYMPHOCYTES PERCENT AUTO 29.9 % (24.0-44.0); MEAN CORPUSCULAR HEMOGLOBIN 30.4 pg (28.0-32.0); MEAN CORPUSCULAR HGB CONC 34.7 g/dL (32.0-36.0); MEAN CORPUSCULAR VOLUME 87.6 fL (83.0-99.0); MEAN PLATELET VOLUME 8.1 fL (9.4-12.4); MONOCYTES ABSOLUTE AUTO 0.67 K/uL (0.00-0.80); NEUTROPHILS ABSOLUTE AUTO 7.01 K/uL (1.80-7.70); NEUTROPHILS PERCENT AUTO 62.6 % (41.0-71.0); PLATELET COUNT,PLT 197 K/uL (150-400); RED BLOOD CELL COUNT 5.16 M/uL (4.52-5.90); WHITE BLOOD CELL COUNT,WBC 11.18 K/uL (3.9-11.3)
[2023-12-12 06:07] LABS: A/G RATIO 1.1 (0.9-1.6); ALBUMIN 3.7 g/dL (3.4-5.0); BILIRUBIN TOTAL 0.5 mg/dL (0.2-1.0); CARBON DIOXIDE,CO2 28.9 mmol/L (21.0-32.0); CREATININE 1.2 mg/dL (0.8-1.3); EST CRCL DRUG DOSING (CG) 89.19 mL/min; POTASSIUM,K 3.7 mmol/L (3.5-5.1)
[2023-12-12] MEDS: predniSONE 20 MG Tab PO ONE (09:23)
[2023-12-12 11:29] VITALS: BP 133/82; PULSE 78
== END 2023-12-12 12:20 | disposition home or self-care (01) | DRG 193 ==
LOC: MW.ED 08:35 → MW.MS 12:57 → OBSVTOIN 12-09 12:54
PROVIDERS: ADMIT Internal Medicine; ATTEND Internal Medicine
DX: J10.1 Influenza due to other identified influenza virus with other respiratory manifestations (principal); J96.01 Acute respiratory failure with hypoxia; R09.02 Hypoxemia; E87.1 Hypo-osmolality and hyponatremia; E86.0 Dehydration; K52.9 Noninfective gastroenteritis and colitis, unspecified; E03.9 Hypothyroidism, unspecified; Z75.8 Other problems related to medical facilities and other health care; R62.50 Unspecified lack of expected normal physiological development in childhood; K59.09 Other constipation; E66.9 Obesity, unspecified; F17.210 Nicotine dependence, cigarettes, uncomplicated; F31.9 Bipolar disorder, unspecified; F32.A Depression, unspecified; G47.9 Sleep disorder, unspecified; R19.7 Diarrhea, unspecified; F98.8 Other specified behavioral and emotional disorders with onset usually occurring in childhood and adolescence; Z79.899 Other long term (current) drug therapy; Z68.37 Body mass index [BMI] 37.0-37.9, adult; Z87.81 Personal history of (healed) traumatic fracture
CPT/HCPCS: 0241U; 36415; 71045; 80053; 82803; 84443; 84484; 85025; 85379; 93005; 96361; 96374; 99285; 93010; 96372; 96375; 99284; A9270-GY; C9113; G0378; J1650; J2930; J3490; J7030; J7620-GY

== ENCOUNTER 2023-12-14 18:52 | Inpatient (IN) | payer MEDICARE, MEDICAID ==
[2023-12-14] MEDS: Albuterol/Ipratropium 3.0-0.5 MG/3 ML Neb Soln NEB ONE (19:16)
[2023-12-14] MEDS: Sodium Chloride 0.9% 10 ML Syringe FLUSH PRN (19:18)
[2023-12-14] MEDS: Sodium Chloride 0.9% 2.5 ML Syringe FLUSH PRN (19:18)
[2023-12-14 19:33] LABS: HEMATOCRIT 46.6 % (42.0-52.0); HEMOGLOBIN 16.5 g/dL (14.0-18.0); MEAN CORPUSCULAR HEMOGLOBIN 30.4 pg (28.0-32.0); MEAN CORPUSCULAR HGB CONC 35.4 g/dL (32.0-36.0); MEAN CORPUSCULAR VOLUME 85.8 fL (83.0-99.0); PLATELET COUNT,PLT 239 K/uL (150-400); RED BLOOD CELL COUNT 5.43 M/uL (4.52-5.90); WHITE BLOOD CELL COUNT,WBC 11.69 K/uL (3.9-11.3)
[2023-12-14] MEDS: Albuterol 0.083% 2.5 MG/3 ML Neb Soln NEB ONE (19:59)
[2023-12-14 20:04] LABS: EOSINOPHILS ABSOLUTE MAN 0.12 K/uL (0.00-0.45); EOSINOPHILS PERCENT MAN 1 % (0-6); LYMPHOCYTES ABSOLUTE MAN 2.45 K/uL (1.00-4.80); LYMPHOCYTES PERCENT MAN 21 % (24-44); MONOCYTES ABSOLUTE MAN 0.47 K/uL (0.00-0.80); MONOCYTES PERCENT MAN 4 % (0-8); SEG NEUTROPHILS ABSOLUTE MAN 8.65 K/uL (1.80-7.70); SEG NEUTROPHILS PERCENT MAN 74 % (41-71)
[2023-12-14 20:12] LABS: A/G RATIO 1.2 (0.9-1.6); ALANINE AMINOTRANSFERASE,ALT 33 IU/L (14-63); ALBUMIN 4.1 g/dL (3.4-5.0); ALKALINE PHOSPHATASE 102 U/L (46-116); ASPARTATE AMNIOTRANSFERASE,AST 17 IU/L (15-37); BILIRUBIN TOTAL 0.4 mg/dL (0.2-1.0); BLOOD UREA NITROGEN,BUN 17 mg/dL (7.0-18.0); CALCIUM 9.2 mg/dL (8.5-10.1); CARBON DIOXIDE,CO2 27.9 mmol/L (21.0-32.0); CHLORIDE,CL 102 mmol/L (98-107); CREATININE 1.1 mg/dL (0.8-1.3); GLUCOSE RANDOM 145 mg/dL (74-106); LIPASE 29 U/L (16-77); POTASSIUM,K 4.4 mmol/L (3.5-5.1); PROTEIN TOTAL,TP 7.5 g/dL (6.4-8.2); SODIUM,NA 141 mmol/L (136-148)
[2023-12-14 20:18] LABS: ESTIMATED GFR 92 mL/min (>60)
[2023-12-14 20:33] LABS: BASE EXCESS ARTERIAL 3.1 (-2.0-3.0); BICARBONATE,ARTERIAL 28 mEq/L (22-26); PCO2 ARTERIAL 42 mmHG (35-45); PO2 ARTERIAL 73 mmHG (80-105)
[2023-12-14] MEDS: Iopamidol 755 MG/ML 500 ML Multipack Bottle IVPUSH ONE (20:46)
[2023-12-14] MEDS ORDERED: Albuterol 0.083% 2.5 MG/3 ML Neb Soln NEB PRN (22:15)
[2023-12-14] MEDS ORDERED: Ondansetron 4 MG/2 ML SDV IVPUSH PRN (22:15)
[2023-12-14] MEDS ORDERED: Polyethylene Glycol 3350 Powder 17 GM Packet PO PRN (22:15)
[2023-12-14] MEDS ORDERED: Albuterol/Ipratropium 3.0-0.5 MG/3 ML Neb Soln NEB PRN (22:15)
[2023-12-14] MEDS: Pantoprazole 40 MG in Sodium Chloride 0.9% 10 ML IVPUSH SCH (23:56)
[2023-12-14] MEDS: cefTRIAXone 1 GM in Sodium Chloride 0.9% 50 ML IV SCH (23:57)
[2023-12-15] MEDS: lamoTRIgine 100 MG Tab PO SCH ×2 (00:18→08:17)
[2023-12-15] MEDS: DULoxetine 60 MG Cap PO SCH (00:19)
[2023-12-15] MEDS: risperiDONE 1 MG Tab PO SCH (00:20)
[2023-12-15] MEDS: Doxazosin 4 MG Tab PO SCH (00:21)
[2023-12-15] MEDS: OXcarbazepine 300 MG Tab PO SCH (00:24)
[2023-12-15 06:38] LABS: BASOPHILS ABSOLUTE AUTO 0.07 K/uL (0.00-0.20); BASOPHILS PERCENT AUTO 0.6 % (0.0-1.0); EOSINOPHILS ABSOLUTE AUTO 0.02 K/uL (0.00-0.45); EOSINOPHILS PERCENT AUTO 0.2 % (0.0-6.0); HEMATOCRIT 45.3 % (42.0-52.0); HEMOGLOBIN 15.6 g/dL (14.0-18.0); IMMATURE GRAN ABSOLUTE AUTO 0.48 K/uL (0.00-0.05); IMMATURE GRAN PERCENT AUTO 4.3 % (0.0-0.4); LYMPHOCYTES ABSOLUTE AUTO 3.22 K/uL (1.00-4.80); LYMPHOCYTES PERCENT AUTO 28.9 % (24.0-44.0); MEAN CORPUSCULAR HEMOGLOBIN 30.7 pg (28.0-32.0); MEAN CORPUSCULAR HGB CONC 34.4 g/dL (32.0-36.0); MEAN CORPUSCULAR VOLUME 89.2 fL (83.0-99.0); MEAN PLATELET VOLUME 8.2 fL (9.4-12.4); MONOCYTES ABSOLUTE AUTO 0.97 K/uL (0.00-0.80); MONOCYTES PERCENT AUTO 8.7 % (0.0-8.0); NEUTROPHILS ABSOLUTE AUTO 6.37 K/uL (1.80-7.70); NEUTROPHILS PERCENT AUTO 57.3 % (41.0-71.0); PLATELET COUNT,PLT 194 K/uL (150-400); RED BLOOD CELL COUNT 5.08 M/uL (4.52-5.90); WHITE BLOOD CELL COUNT,WBC 11.13 K/uL (3.9-11.3)
[2023-12-15] MEDS: Levothyroxine 88 MCG Tab PO SCH (07:00)
[2023-12-15 07:03] LABS: A/G RATIO 1.2 (0.9-1.6); ALBUMIN 3.6 g/dL (3.4-5.0); BILIRUBIN TOTAL 0.3 mg/dL (0.2-1.0); CALCIUM 8.6 mg/dL (8.5-10.1); CARBON DIOXIDE,CO2 28.4 mmol/L (21.0-32.0); CREATININE 1.1 mg/dL (0.8-1.3); EST CRCL DRUG DOSING (CG) 97.3 mL/min; MAGNESIUM 2.3 mg/dL (1.8-2.4); POTASSIUM,K 3.6 mmol/L (3.5-5.1); PROTEIN TOTAL,TP 6.7 g/dL (6.4-8.2)
[2023-12-15] MEDS: Escitalopram 10 MG Tab PO SCH (08:17)
[2023-12-15] MEDS: risperiDONE 0.25 MG Tab PO SCH (08:17)
[2023-12-15] MEDS: Nicotine 21 MG/24 Hr Patch TRDERM SCH (08:17)
[2023-12-15] MEDS ORDERED: DULoxetine 60 MG Cap PO SCH (09:00)
[2023-12-15] MEDS ORDERED: OXcarbazepine 300 MG Tab PO SCH (09:00)
[2023-12-15] MEDS: Benzonatate 100 MG Cap PO SCH (10:04)
[2023-12-15] MEDS: Enoxaparin 40 MG/0.4 ML Syringe SUBCUT SCH (10:04)
[2023-12-15] MEDS: Pantoprazole 40 MG Tab.CR PO SCH (20:12)
[2023-12-15] MEDS: Formoterol/Mometasone 200-5 MCG 8.8 GM Inhaler INH SCH (20:13)
[2023-12-15] MEDS ORDERED: risperiDONE 1 MG Tab PO SCH (21:00)
[2023-12-15] MEDS ORDERED: Doxazosin 4 MG Tab PO SCH (21:00)
[2023-12-15] MEDS ORDERED: lamoTRIgine 100 MG Tab PO SCH (21:00)
[2023-12-16 05:28] LABS: BASOPHILS ABSOLUTE AUTO 0.06 K/uL (0.00-0.20); BASOPHILS PERCENT AUTO 0.6 % (0.0-1.0); EOSINOPHILS ABSOLUTE AUTO 0.01 K/uL (0.00-0.45); EOSINOPHILS PERCENT AUTO 0.1 % (0.0-6.0); HEMATOCRIT 46.9 % (42.0-52.0); IMMATURE GRAN ABSOLUTE AUTO 0.41 K/uL (0.00-0.05); IMMATURE GRAN PERCENT AUTO 4.4 % (0.0-0.4); LYMPHOCYTES ABSOLUTE AUTO 2.66 K/uL (1.00-4.80); LYMPHOCYTES PERCENT AUTO 28.2 % (24.0-44.0); MEAN CORPUSCULAR HGB CONC 34.1 g/dL (32.0-36.0); MEAN PLATELET VOLUME 8.1 fL (9.4-12.4); MONOCYTES ABSOLUTE AUTO 0.84 K/uL (0.00-0.80); MONOCYTES PERCENT AUTO 8.9 % (0.0-8.0); NEUTROPHILS ABSOLUTE AUTO 5.44 K/uL (1.80-7.70); NEUTROPHILS PERCENT AUTO 57.8 % (41.0-71.0); PLATELET COUNT,PLT 198 K/uL (150-400); RED BLOOD CELL COUNT 5.33 M/uL (4.52-5.90); WHITE BLOOD CELL COUNT,WBC 9.42 K/uL (3.9-11.3)
[2023-12-16 06:01] LABS: A/G RATIO 1.2 (0.9-1.6); ALBUMIN 3.7 g/dL (3.4-5.0); BILIRUBIN TOTAL 0.4 mg/dL (0.2-1.0); CALCIUM 8.9 mg/dL (8.5-10.1); CARBON DIOXIDE,CO2 30.6 mmol/L (21.0-32.0); CREATININE 1.1 mg/dL (0.8-1.3); EST CRCL DRUG DOSING (CG) 97.3 mL/min; MAGNESIUM 2.1 mg/dL (1.8-2.4); POTASSIUM,K 4.3 mmol/L (3.5-5.1); PROTEIN TOTAL,TP 6.9 g/dL (6.4-8.2)
[2023-12-16] MEDS: Acetaminophen 325 MG Tab PO PRN (16:08)
[2023-12-17 05:45] LABS: BASOPHILS ABSOLUTE AUTO 0.09 K/uL (0.00-0.20); BASOPHILS PERCENT AUTO 0.9 % (0.0-1.0); EOSINOPHILS ABSOLUTE AUTO 0.01 K/uL (0.00-0.45); EOSINOPHILS PERCENT AUTO 0.1 % (0.0-6.0); HEMATOCRIT 49.9 % (42.0-52.0); HEMOGLOBIN 17.1 g/dL (14.0-18.0); IMMATURE GRAN ABSOLUTE AUTO 0.34 K/uL (0.00-0.05); IMMATURE GRAN PERCENT AUTO 3.5 % (0.0-0.4); LYMPHOCYTES ABSOLUTE AUTO 3.29 K/uL (1.00-4.80); LYMPHOCYTES PERCENT AUTO 33.5 % (24.0-44.0); MEAN CORPUSCULAR HEMOGLOBIN 29.7 pg (28.0-32.0); MEAN CORPUSCULAR HGB CONC 34.3 g/dL (32.0-36.0); MEAN CORPUSCULAR VOLUME 86.6 fL (83.0-99.0); MEAN PLATELET VOLUME 7.8 fL (9.4-12.4); MONOCYTES ABSOLUTE AUTO 0.85 K/uL (0.00-0.80); MONOCYTES PERCENT AUTO 8.6 % (0.0-8.0); NEUTROPHILS ABSOLUTE AUTO 5.25 K/uL (1.80-7.70); NEUTROPHILS PERCENT AUTO 53.4 % (41.0-71.0); PLATELET COUNT,PLT 186 K/uL (150-400); RED BLOOD CELL COUNT 5.76 M/uL (4.52-5.90); WHITE BLOOD CELL COUNT,WBC 9.83 K/uL (3.9-11.3)
[2023-12-17 06:09] LABS: A/G RATIO 1.2 (0.9-1.6); BILIRUBIN TOTAL 0.5 mg/dL (0.2-1.0); CALCIUM 9.5 mg/dL (8.5-10.1); CARBON DIOXIDE,CO2 31.2 mmol/L (21.0-32.0); CREATININE 1.2 mg/dL (0.8-1.3); EST CRCL DRUG DOSING (CG) 89.19 mL/min; MAGNESIUM 2.2 mg/dL (1.8-2.4); PROTEIN TOTAL,TP 7.3 g/dL (6.4-8.2)
[2023-12-17 11:21] VITALS: PULSE 84
[2023-12-17] MEDS: Cefdinir 300 MG Cap PO ONE (13:28)
[2023-12-17 13:35] VITALS: BP 134/84
== END 2023-12-17 13:35 | disposition home or self-care (01) | DRG 189 ==
LOC: MW.ED 18:52 → MW.MS 21:43 → OBSVTOIN 12-15 09:47 → MW.MS 12-15 10:43
PROVIDERS: ADMIT Family Medicine; ATTEND Family Medicine
PROC: 4A13XR1 Monitoring of Arterial Saturation, Peripheral, External Approach (ICD-10-PCS; principal; 2023-12-14)
DX: J96.01 Acute respiratory failure with hypoxia (principal); J06.9 Acute upper respiratory infection, unspecified; E03.9 Hypothyroidism, unspecified; E66.9 Obesity, unspecified; K59.09 Other constipation; F98.8 Other specified behavioral and emotional disorders with onset usually occurring in childhood and adolescence; F41.9 Anxiety disorder, unspecified; F79 Unspecified intellectual disabilities; G40.909 Epilepsy, unspecified, not intractable, without status epilepticus; Z68.36 Body mass index [BMI] 36.0-36.9, adult; Z87.891 Personal history of nicotine dependence; Z79.899 Other long term (current) drug therapy
CPT/HCPCS: 36415 ×2; 36600; 71275; 80053 ×2; 82803; 83690; 83735; 84484; 85025 ×2; 85379; 93005 ×3; 93306; A9270 ×11; C9113; J0696; J3490 ×3; Q9967; 93010; 96365; 96375; 99291; G0378; J1650; J7620-GY

== ENCOUNTER 2024-04-22 23:52 | Emergency (ER) | payer MEDICARE, MEDICAID ==
[2024-04-23 00:33] VITALS: BP 135/89; PULSE 94
== END 2024-04-23 01:15 | disposition home or self-care (01) ==
LOC: MW.ED 23:52
DX: F41.9 Anxiety disorder, unspecified (principal); R45.89 Other symptoms and signs involving emotional state; E03.9 Hypothyroidism, unspecified; Z79.890 Hormone replacement therapy; Z75.8 Other problems related to medical facilities and other health care; Z79.899 Other long term (current) drug therapy
CPT/HCPCS: 99282; 99283

== ENCOUNTER 2025-02-01 11:25 | Emergency (ER) | payer MEDICARE, MEDICAID ==
[2025-02-01 11:44] LABS: BASOPHILS ABSOLUTE AUTO 0.01 K/uL (0.00-0.20); BASOPHILS PERCENT AUTO 0.1 % (0.0-1.0); EOSINOPHILS ABSOLUTE AUTO 0.01 K/uL (0.00-0.45); EOSINOPHILS PERCENT AUTO 0.1 % (0.0-6.0); HEMATOCRIT 42.5 % (42.0-52.0); HEMOGLOBIN 15.3 g/dL (14.0-18.0); IMMATURE GRAN PERCENT AUTO 1.1 % (0.0-0.4); MEAN CORPUSCULAR HEMOGLOBIN 31.7 pg (28.0-32.0); MONOCYTES ABSOLUTE AUTO 0.84 K/uL (0.00-0.80); MONOCYTES PERCENT AUTO 9.2 % (0.0-8.0); NEUTROPHILS ABSOLUTE AUTO 6.01 K/uL (1.80-7.70); NEUTROPHILS PERCENT AUTO 65.5 % (41.0-71.0); PLATELET COUNT,PLT 147 K/uL (150-400); RED BLOOD CELL COUNT 4.83 M/uL (4.52-5.90); WHITE BLOOD CELL COUNT,WBC 9.17 K/uL (3.9-11.3)
[2025-02-01 11:50] LABS: INR 1.11 (0.86-1.11); PTT,PARTIAL THROMBOPLSTIN TIME 28.5 SEC (23.9-30.7)
[2025-02-01] MEDS: fentaNYL 50 MCG/ML SDV ONE (11:59)
[2025-02-01] MEDS: Ondansetron 4 MG/2 ML SDV ONE (11:59)
[2025-02-01] MEDS: Tranexamic Acid in NACL,ISO-OS 100 ML ONE (11:59)
[2025-02-01 12:00] LABS: A/G RATIO 1.6 (0.9-1.6); ALANINE AMINOTRANSFERASE,ALT 30 IU/L (14-63); ALBUMIN 3.8 g/dL (3.4-5.0); ALKALINE PHOSPHATASE 98 U/L (46-116); ASPARTATE AMNIOTRANSFERASE,AST 32 IU/L (15-37); BILIRUBIN TOTAL 0.5 mg/dL (0.2-1.0); BLOOD UREA NITROGEN,BUN 11 mg/dL (7.0-18.0); CALCIUM 8.8 mg/dL (8.5-10.1); CHLORIDE,CL 103 mmol/L (98-107); CREATININE 1.1 mg/dL (0.8-1.3); GLUCOSE RANDOM 98 mg/dL (74-106); POTASSIUM,K 4.4 mmol/L (3.5-5.1); PROTEIN TOTAL,TP 6.2 g/dL (6.4-8.2); SODIUM,NA 139 mmol/L (136-148)
[2025-02-01] MEDS: Diphtheria,Pertussis(Acell),Tetanus Vaccine 0.5 ML Syringe IM ONE (12:00)
[2025-02-01] MEDS: ceFAZolin 1 GM Vial ONE (12:00)
[2025-02-01] MEDS: ceFAZolin 1 GM in Water For Injection, Sterile 10 ML IVPUSH ONE (12:01)
[2025-02-01] MEDS: Ondansetron 4 MG/2 ML SDV IVPUSH ONE (12:01)
[2025-02-01] MEDS: fentaNYL 50 MCG/ML SDV IVPUSH ONE ×3 (12:01→16:08)
[2025-02-01] MEDS: Lidocaine 1% with EPINEPHrine 1:200,000 30 ML SDV INJECT ONE (12:02)
[2025-02-01 12:03] LABS: ESTIMATED GFR 91 mL/min (>60)
[2025-02-01] MEDS: Tranexamic Acid in NACL,ISO-OS 1,000 MG in Premix Bag 1 BAG IV ONE (12:06)
[2025-02-01] MEDS: Tranexamic Acid 1,000 MG/10 ML Vial TOP ONE (12:09)
[2025-02-01] MEDS: Iopamidol 755 MG/ML 500 ML Multipack Bottle IVPUSH STA (12:47)
[2025-02-01 13:42] LABS: BASOPHILS ABSOLUTE AUTO 0.02 K/uL (0.00-0.20); BASOPHILS PERCENT AUTO 0.2 % (0.0-1.0); EOSINOPHILS ABSOLUTE AUTO 0.01 K/uL (0.00-0.45); EOSINOPHILS PERCENT AUTO 0.1 % (0.0-6.0); HEMOGLOBIN 14.5 g/dL (14.0-18.0); IMMATURE GRAN ABSOLUTE AUTO 0.11 K/uL (0.00-0.05); IMMATURE GRAN PERCENT AUTO 0.8 % (0.0-0.4); LYMPHOCYTES ABSOLUTE AUTO 1.69 K/uL (1.00-4.80); MEAN CORPUSCULAR HEMOGLOBIN 31.8 pg (28.0-32.0); MEAN CORPUSCULAR HGB CONC 36.3 g/dL (32.0-36.0); MEAN CORPUSCULAR VOLUME 87.7 fL (83.0-99.0); MONOCYTES ABSOLUTE AUTO 0.83 K/uL (0.00-0.80); MONOCYTES PERCENT AUTO 6.4 % (0.0-8.0); NEUTROPHILS ABSOLUTE AUTO 10.38 K/uL (1.80-7.70); NEUTROPHILS PERCENT AUTO 79.5 % (41.0-71.0); PLATELET COUNT,PLT 204 K/uL (150-400); RED BLOOD CELL COUNT 4.56 M/uL (4.52-5.90); WHITE BLOOD CELL COUNT,WBC 13.04 K/uL (3.9-11.3)
[2025-02-01 16:11] VITALS: BP 116/77; PULSE 82
[2025-02-01] MEDS ORDERED: Hydrogen Peroxide 3% Top Soln 473 ML Bottle ONE (16:17)
== END 2025-02-01 17:18 ==
LOC: MW.ED 11:25
DX: S22.059A Unspecified fracture of T5-T6 vertebra, initial encounter for closed fracture (principal); S22.029A Unspecified fracture of second thoracic vertebra, initial encounter for closed fracture; S12.121A Other nondisplaced dens fracture, initial encounter for closed fracture; S01.01XA Laceration without foreign body of scalp, initial encounter; S01.81XA Laceration without foreign body of other part of head, initial encounter; R09.02 Hypoxemia; Z23 Encounter for immunization; E66.9 Obesity, unspecified; E03.9 Hypothyroidism, unspecified; Z79.890 Hormone replacement therapy; Z79.899 Other long term (current) drug therapy; Z87.891 Personal history of nicotine dependence; W10.8XXA Fall (on) (from) other stairs and steps, initial encounter
CPT/HCPCS: 12004; 12014; 36415; 51702; 70450; 70486; 71045; 71260; 72125; 72128; 72131; 74177; 80053; 83605; 84484; 85025; 85379; 85610; 85730; 86850; 86900; 86901; 90471; 90715; 93005; 96374; 96375; 96376; 99285; J0690; J2405; J3010; Q9967; 12015; 93010; J3490

== ENCOUNTER 2025-08-14 19:10 | Emergency (ER) | payer MEDICARE, MEDICAID ==
[2025-08-14 19:25] VITALS: BP 129/80; PULSE 79
== END 2025-08-14 19:47 | disposition left against medical advice (07) ==
LOC: MW.ED 19:10
DX: Z53.21 Procedure and treatment not carried out due to patient leaving prior to being seen by health care provider (principal)